=== PATIENT | male | born 1960 ===

== ENCOUNTER 2020-03-30 01:00 | Emergency (ER) | payer OTHER, SELFPAY ==
[2020-03-30 01:03] VITALS: BP 151/69; PULSE 118; TEMP 36; O2SAT 97; BMI 26.2
--- NOTE | 2020-03-30 03:05 | ED.EAR ---
HPI - Ear Problem General Chief complaint: Ear Problems Stated complaint: BUZZING IN EAR Time Seen by Provider: 03/30/20 03:05 Source: patient Mode of arrival: ambulatory Limitations: no limitations History of Present Illness HPI Narrative: patient comes to emergency room complaining of ear whooshing noise the L ear sound for the last 8 months , patient denies any pain. Patient states the noise is getting more intense and now he is unable to sleep due to the noise, only affecting the left ear. Patient states that his primary care physician has been trying to arrange and ENT referral Related Data Home Medications Medication Instructions Recorded Confirmed albuterol 90 mcg/actuation aerosol mcg INHALATION 03/24/20 03/24/20 inhaler cyanocobalamin (vitamin B-12) 1,000 mcg PO DAILY 03/24/20 03/24/20 1,000 mcg capsule fluticasone propionate 110 2 puff INHALATION BID 03/24/20 03/24/20 mcg/actuation HFA aerosol inhaler gabapentin 300 mg tablet,extended 300 mg PO BID tab 03/24/20 03/24/20 release 24 hr lisinopril 20 mg tablet 20 mg PO DAILY 03/24/20 03/24/20 omeprazole 20 mg capsule,delayed 20 mg PO DAILY 03/24/20 03/24/20 release quetiapine 100 mg tablet 100 mg PO BEDTIME 03/24/20 03/24/20 simvastatin 5 mg tablet 5 mg PO DAILY 03/24/20 03/24/20 thiamine HCl (vitamin B1) 50 mg 50 mg PO DAILY 03/24/20 03/24/20 tablet thiamine HCl (vitamin B1) 50 mg 50 mg PO DAILY 03/24/20 03/24/20 tablet Previous Rx's Medication Instructions Recorded tramadol 50 mg tablet 50 mg PO TID PRN 30 Days #90 tab 03/24/20 Allergies Allergy/AdvReac Type Severity Reaction Status Date / Time ibuprofen [IBUPROFEN] AdvReac Mild UPSET Verified 03/30/20 01:06 STOMACH naproxen [From NAPROSYN] AdvReac Unknown STOMACH Verified 03/30/20 01:06 UPSET Review of Systems Review of Systems: Constitutional: No Weight loss, No Fever, No Chills, No Night Sweats, No Fatigue, No Malaise ENT/Mouth: No Hearing loss, No Ear Pain, complaining of a constant ear wooshing noise, No Nasal Congestion, No Sinus Pain, No Hoarseness, No sore throat, No Rhinorrhea, No Swallowing Difficulty Eyes: No Eye Pain, No Swelling, No Redness, No Foreign Body, No Discharge, No Vision Changes Cardiovascular: No Chest Pain, No SOB, No Dyspnea on Exertion, No Orthopnea, No Edema, No Palpitations Respiratory: No Cough, No Sputum, No Wheezing, No Smoke Exposure, No Dyspnea Gastrointestinal: No Nausea, No Vomiting, No Diarrhea, No Constipation, No abdominal Pain, No Hematochezia, No Melena Genitourinary: no irregular bleeding, No Dysuria, No Urinary Frequency, No Hematuria, No Urinary Incontinence, No Urgency, No Flank Pain, No Urinary Flow Changes, No Hesitancy Musculoskeletal: No joint pain, No Myalgias, No Joint Swelling Skin: No Skin Lesions, No rash Neuro: No Weakness, No Numbness, No Paresthesias, No Loss of Consciousness, No Dizziness, No Headache Psych: No Anxiety/Panic, No Depression, No SI/HI/AH/VH, No Social Issues, Heme/Lymph: No Bruising, No Bleeding,No Lymphadenopathy Endocrine: No Polyuria, No Polydipsia, No Temperature Intolerance [facility] Past Medical History Medical History Alcohol abuse Anxiety and depression Asthma Degenerative disc disease, lumbar GERD (gastroesophageal reflux disease) Hypercholesterolemia Hypertension Tobacco abuse Type 2 diabetes mellitus with hyperglycemia Surgical History History of hand surgery Family History Family History (Updated 03/23/20 @ 16:53 by Leona Nixon RN) Father No problems noted. Mother Lung cancer Maternal Grandmother History of heart attack Maternal Uncle Lung cancer Social History Social History Advance Directives: No Physical Exam Vital Signs: Vital Signs: Vital Signs Temp Pulse BP Pulse Ox 03/30/20 01:03 96.8 F 118 H 151/69 H 97 Body Mass Index 26.2 Appearance: Alert. Oriented X3. No acute distress. Eyes: Pupils equal, round and reactive to light. ENT: Pharynx normal. Neck: Normal inspection. Neck supple. No lymph nodes noted. No crepitus, audible murmur over the left carotid CVS: Normal heart rate and rhythm. Pulses normal. Normal S1 and S2 Respiratory: No respiratory distress. Breath sounds normal. No Wheezing. No rales Abdomen: Soft and nontender. No rigidity. No distention. good BS x4 Skin: Skin warm and dry. Normal skin color. Normal skin turgor. Extremities: No lower extremity edema. No lower extremity edema. No Lacerations. No Rash Neuro: Oriented X 3. No motor deficit. No sensory deficit. Moving all extermities. No slurred speech. Appearance: Alert. Oriented X3. No acute distress. Course Reevaluation(s) Reevaluation #1: patient is stable MDM - Ear MDM Narrative Medical decision making narrative: I discussed the physical exam with the patient, his ears are within normal limits, however there is allowed murmur over the left carotid. I discussed with the patient that we should get angio of the neck. Patient states that he does not want to wait for the blood work and the results. Patient states he will talk to his primary care physician about this. As mentioned above, patient declined labs and imaging. Discharge Plan Discharge Clinical Impression: Ear clicks Qualifiers: Laterality: left Qualified Code(s): H93.12 - Tinnitus, left ear Patient Disposition: Home, Self-Care Additional Instructions: please follow-up with your primary care physician, you may need a carotid ultrasound to rule out narrowing of the arteries in your neck. also please follow-up with your ears nose and throat doctor As suggested by your primary care physician Prescriptions: No Action thiamine HCl (vitamin B1) 50 mg tablet 50 mg PO DAILY RF: 0 albuterol 90 mcg/actuation aerosol inhalation RF: 0 Flovent HFA 110 mcg/actuation HFA aerosol inhaler 2 puff inhalation BID RF: 0 gabapentin 300 mg tablet extended release 24 hr 300 mg PO BID RF: 0 quetiapine [Seroquel] 100 mg tablet 100 mg PO BEDTIME RF: 0 omeprazole 20 mg capsule,delayed release(DR/EC) 20 mg PO DAILY RF: 0 simvastatin 5 mg tablet 5 mg PO DAILY RF: 0 thiamine HCl (vitamin B1) 50 mg tablet 50 mg PO DAILY RF: 0 lisinopril 20 mg tablet 20 mg PO DAILY RF: 0 cyanocobalamin (vitamin B-12) 1,000 mcg capsule 1,000 mcg PO DAILY RF: 0 tramadol 50 mg tablet 50 mg PO TID PRN (Reason: pain) 30 Days Qty: 90 RF: 0 Interventions: ED Discharge Assessment Last Done: 03/30/20 03:09 Discharge Date/Time: 03/30/20 03:18
== END 2020-03-30 03:18 | disposition home or self-care (01) ==
PROVIDERS: Emergency Provider Emergency Medicine; PCP Internal Medicine
DX: H93.12 Tinnitus, left ear (principal)
CPT/HCPCS: 99282; 99283

== ENCOUNTER 2020-04-02 09:36 | Outpatient (REF) | payer OTHER, SELFPAY | END 2020-04-02 09:37 | disposition home or self-care (01) | LOC: HO.SH 09:36 | PROVIDERS: Visit Provider Internal Medicine | DX: H93.13 Tinnitus, bilateral (principal); H90.3 Sensorineural hearing loss, bilateral | CPT/HCPCS: 92557; 92567 ==

== ENCOUNTER 2020-10-15 09:33 | Outpatient (REF) | payer OTHER, SELFPAY ==
[2020-10-15 10:24] LABS: MANUAL DIFF FLAG NO
[2020-10-15 10:28] LABS: Basophils Absolute Auto 0.1 X10*3/uL (0.0-0.2); Basophils Percent Auto 0.5 % (0-2); Eosinophils Absolute Auto 0.2 X10*3/uL (0.0-0.4); Eosinophils Percent Auto 1.5 % (0-4); Hematocrit 46.9 % (42-52); Hemoglobin 15.9 g/dl (14.0-18.0); Imm Gran Abs Auto 0.02 X10*3/uL (0.00-0.03); Imm Gran Pct Auto 0.2 % (0.0-0.4); Lymphocytes Absolute Auto 3.5 X10*3/uL (1.2-4.9); Lymphocytes Percent Auto 35.7 % (20-40); Mean Corpuscular HGB Conc 33.9 g/dl (31.0-36.0); Mean Corpuscular Hemoglobin 30.7 pg (27.0-33.0); Mean Corpuscular Volume 90.5 fL (80-98); Mean Platelet Volume 12.3 fL (9.4-12.4); Monocytes Absolute Auto 0.5 X10*3/uL (0.1-1.2); Monocytes Percent Auto 5.4 % (2-11); Neutrophils Absolute Auto 5.6 X10*3/uL (2.0-8.3); Neutrophils Percent Auto 56.7 % (45-73); Platelet Count 218 X10*3/uL (160-400); Red Blood Count 5.18 X10*6/uL (4.60-5.80); Red Cell Distribution Width 13.2 % (11.0-16.0); White Blood Count 9.9 X10*3/uL (4.8-10.8)
[2020-10-15 10:55] LABS: Albumin Level 4.6 g/dL (3.5-5.0); Anion Gap 17 (12-20); Blood Urea Nitrogen 17 mg/dL (9-16); Carbon Dioxide 22 mmol/L (22-29); Chloride 104 mmol/L (96-108); Estimated Glomerular Filt Rate > 60; Magnesium 2.2 mg/dL (1.6-2.6); Phosphorus 3.9 mg/dL (2.7-4.5); Potassium 4.9 mmol/L (3.3-5.1); Sodium 138 mmol/L (135-145)
[2020-10-15 11:04] LABS: Vitamin D 25-OH Total 9.9 ng/mL (>30)
== END 2020-10-15 09:34 | disposition home or self-care (01) ==
LOC: HO.LAB 09:33
PROVIDERS: PCP Internal Medicine; Visit Provider Internal Medicine Hypertension Specialist
DX: I13.0 Hypertensive heart and chronic kidney disease with heart failure and stage 1 through stage 4 chronic kidney disease, or unspecified chronic kidney disease (principal); I50.9 Heart failure, unspecified; N18.9 Chronic kidney disease, unspecified
CPT/HCPCS: 36415; 80051; 82040; 82306; 82310; 82565; 83735; 84100; 84520; 85025

== ENCOUNTER 2021-01-27 10:26 | Outpatient (REF) | payer OTHER, SELFPAY ==
[2021-01-27 10:48] LABS: MANUAL DIFF FLAG NO
[2021-01-27 10:56] LABS: Basophils Percent Auto 0.4 % (0-2); Eosinophils Absolute Auto 0.2 X10*3/uL (0.0-0.4); Eosinophils Percent Auto 1.9 % (0-4); Hematocrit 45.1 % (42-52); Hemoglobin 15.3 g/dl (14.0-18.0); Imm Gran Abs Auto 0.02 X10*3/uL (0.00-0.03); Imm Gran Pct Auto 0.2 % (0.0-0.4); Lymphocytes Absolute Auto 4.4 X10*3/uL (1.2-4.9); Lymphocytes Percent Auto 42.1 % (20-40); Mean Corpuscular HGB Conc 33.9 g/dl (31.0-36.0); Mean Corpuscular Hemoglobin 30.8 pg (27.0-33.0); Mean Corpuscular Volume 90.9 fL (80-98); Mean Platelet Volume 12.5 fL (9.4-12.4); Monocytes Absolute Auto 0.6 X10*3/uL (0.1-1.2); Monocytes Percent Auto 5.6 % (2-11); Neutrophils Absolute Auto 5.2 X10*3/uL (2.0-8.3); Neutrophils Percent Auto 49.8 % (45-73); Platelet Count 200 X10*3/uL (160-400); Red Blood Count 4.96 X10*6/uL (4.60-5.80); Red Cell Distribution Width 13.7 % (11.0-16.0); White Blood Count 10.4 X10*3/uL (4.8-10.8)
[2021-01-27 11:04] LABS: Estimated Average Glucose 169 mg/dL; Hemoglobin A1c % 7.5 %
[2021-01-27 11:20] LABS: Alanine Aminotransferase 27 U/L (0-40); Albumin Level 4.4 g/dL (3.5-5.0); Alkaline Phosphatase 75 U/L (39-117); Anion Gap 15 (12-20); Aspartate Amino Transferase 15 U/L (5-37); Bilirubin Total 0.5 mg/dL (0.0-1.0); Blood Urea Nitrogen 11 mg/dL (9-16); Calcium 9.9 mg/dL (8.4-10.2); Carbon Dioxide 23 mmol/L (22-29); Chloride 106 mmol/L (96-108); Cholesterol 179 mg/dL; Estimated Glomerular Filt Rate > 60; Glucose Random 130 mg/dL (60-115); HDL Cholesterol 35 mg/dL; LDL Cholesterol Calculated 110 mg/dl; Potassium 4.6 mmol/L (3.3-5.1); Sodium 139 mmol/L (135-145); Total Protein 7.4 g/dL (6.5-8.0); Triglycerides 170 mg/dL
[2021-01-27 11:42] LABS: Free T4 (Free Thyroxine) 1.13 ng/dL (0.71-1.85); Prostate Specific Antigen Scr 0.17 ng/mL (<0.05-4.0); Thyroid Stimulating Hormone 1.53 uIU/mL (0.32-4.0)
[2021-01-27 13:35] LABS: Creatinine Urine 213.82 mg/dL; Microalbum/Creatinine Ratio Ur 3.7 ug/mg cr
[2021-01-27 16:21] LABS: Vitamin B12 692 pg/mL (200-900)
== END 2021-01-27 10:27 | disposition home or self-care (01) ==
LOC: HO.LAB 10:26
PROVIDERS: PCP Internal Medicine; Visit Provider Internal Medicine
DX: I10 Essential (primary) hypertension (principal); E78.00 Pure hypercholesterolemia, unspecified; E11.65 Type 2 diabetes mellitus with hyperglycemia; Z12.5 Encounter for screening for malignant neoplasm of prostate
CPT/HCPCS: 36415; 80053; 80061; 82043; 82607; 82746; 83036; 84153; 84439; 84443; 85025

== ENCOUNTER 2021-03-26 16:08 | Emergency (ER) | payer OTHER, SELFPAY ==
--- NOTE | ~2021-03-26 | XR_ITS ---
EXAMINATION: XR CHEST CLINICAL INFORMATION: Cough COMPARISON: 07/06/2014 TECHNIQUE: Frontal view of the chest was obtained. FINDINGS: There are scattered ill-defined parenchymal opacities, most prominent in the left lower lobe. No pleural effusion. Stable cardiomediastinal silhouette. XR/XR chest 1V IMPRESSION: Scattered ill-defined opacities particularly in the left lower lobe may represent a multifocal atypical pneumonia.
--- NOTE | 2021-03-26 17:20 | ED_ITS ---
HPI - URI/Sore Throat General Chief Complaint: Upper Respiratory Symptoms Stated Complaint: Covid + Weakness Time Seen by Provider: 03/26/21 17:20 Source: patient, family and chemist steroids Mode of arrival: ambulatory Limitations: no limitations History of Present Illness HPI Narrative: unvaccinated dx with COVID on 03/20 has body aches pain doesn't feel well has no appetite upset and wants to know when he's going to feel better MD elicited complaint: other (COVID 19 dx) Onset (ago): day(s) (5) Consistency: constant Severity: moderate Description of mucous: clear Able to tolerate fluids by mouth: Yes Exacerbating factors: other (moving) Relieving factors: nothing Context: sick contacts Associated symptoms: chills, myalgias, headache and cough Treatments prior to arrival: none Related Data Home Medications Medication Instructions Recorded Confirmed gabapentin 300 mg tablet,extended 300 mg PO BID tab 03/24/20 10/22/20 release 24 hr omeprazole 20 mg capsule,delayed 20 mg PO DAILY 03/24/20 10/22/20 release quetiapine 100 mg tablet (Seroquel) 100 mg PO BEDTIME 03/24/20 10/22/20 thiamine HCl (vitamin B1) 50 mg 100 mg PO DAILY tab 05/31/20 10/22/20 tablet Previous Rx's Medication Instructions Recorded tizanidine 4 mg tablet 4 mg PO BID PRN #60 tab 06/22/20 fluticasone propionate 110 2 puff PO BID #12 g 07/16/20 mcg/actuation HFA aerosol inhaler (Flovent HFA) lisinopril 20 mg tablet 20 mg PO DAILY #90 tab 01/19/21 metformin 500 mg tablet 500 mg PO BID #60 tab 01/28/21 simvastatin 10 mg tablet 10 mg PO BEDTIME 30 Days #30 tab 01/28/21 cyanocobalamin (vitamin B-12) 100 100 mcg PO DAILY 90 Days #90 tab 02/11/21 mcg tablet tramadol 50 mg tablet 50 mg PO QID PRN #120 tab 03/17/21 albuterol sulfate 90 mcg/actuation 2 puff INHALATION Q6H PRN #8.5 g 03/25/21 aerosol inhaler (ProAir HFA) azithromycin 250 mg tablet 250 mg PO DAILY 4 Days #4 tab 03/26/21 dexamethasone 6 mg tablet 6 mg PO DAILY 7 Days #7 tab 03/26/21 ondansetron 4 mg disintegrating 4 mg PO Q8H PRN #20 tab 03/26/21 tablet Allergies Allergy/AdvReac Type Severity Reaction Status Date / Time ibuprofen [IBUPROFEN] AdvReac Mild UPSET Verified 01/28/21 09:42 STOMACH naproxen [From NAPROSYN] AdvReac Unknown STOMACH Verified 01/28/21 09:42 UPSET Review of Systems Review of Systems: Constitutional : No Weight loss, No Fever, pos Chills, pos Fatigue, pos Malaise ENT/Mouth : No sore throat, pos Rhinorrhea Eyes: No Eye Pain, No Swelling, No Redness Cardiovascular : No Chest Pain, No SOB, No Dyspnea on Exertion, No Orthopnea, No Edema, No Palpitations Respiratory :pos Cough, No Sputum, No Wheezing Gastrointestinal : No Nausea, No Vomiting, No Diarrhea, No Constipation, No abdominal Pain, No Hematochezia, No Melena Genitourinary : No Dysuria, No Urinary Frequency, No Hematuria, Musculoskeletal : pos joint pain, pos Myalgias, No Joint Swelling Skin : No Skin Lesions, No rash Neuro : pos Weakness, No Numbness, No Dizziness, No Headache All other systems reviewed and are negative [facility] Past Medical History Attestation statement: The following information was validated with the patient. Medical History Alcohol abuse Anxiety and depression Asthma Degenerative disc disease, lumbar GERD (gastroesophageal reflux disease) Hypercholesterolemia Hypertension Osteoarthritis Tobacco abuse Type 2 diabetes mellitus with hyperglycemia Surgical History History of hand surgery Family History Family History (Updated 03/23/20 @ 16:53 by Leona Nixon RN) Father No problems noted. Mother Lung cancer Maternal Grandmother History of heart attack Maternal Uncle Lung cancer Social History Social History Housing: Apartment Alcohol intake: current Alcohol intake frequency: holidays/special occasions only Patient Tobacco Use Status: Current everyday Tobacco user Tobacco use type: Cigarette Cigarettes Per Day: 13 e-Cigarette/Vaping Use: Never Used Second Hand Smoke Exposure: Yes Advance Directives: No Advance Directives Information Provided: No service: No Current occupational status: disabled Physical Exam Vital Signs: Vital Signs: Last Vital Signs Temp 100.7 F H 03/26/21 17:54 Pulse 103 H 03/26/21 17:54 Resp 20 03/26/21 17:54 BP 119/79 03/26/21 17:54 Pulse Ox 97 03/26/21 17:54 Body Mass Index 23.9 Appearance: Alert. Oriented X3. No acute distress. Upset at times Eyes: Pupils equal, round and reactive to light. ENT: Pharynx normal. Neck: Normal inspection. Neck supple. CVS: Normal heart rate and rhythm. Pulses normal. Respiratory: No respiratory distress. Breath sounds slightly diminished Abdomen: Soft and nontender. Skin: Skin warm and dry. Normal skin color. Normal skin turgor. Extremities: No lower extremity edema. No calf ttp Neuro: Oriented X 3. No motor deficit. No sensory deficit. MDM - URI/Sore Throat MDM Narrative Medical decision making narrative: 60 yo male with asthma, HTN, current smoker comes in with c/o not feeling well post being dx with COVID on 03/20 he is not vaccinated he is very upset he doesn't feel well and wants to know how long this is going to last - he is not hypoxic, at this time, will need labs, PO supportive medications and CXR, given expectant course Lab Data Result diagrams: 03/26/21 18:08 03/26/21 18:08 Labs: Lab Results 03/26/21 03/26/21 Range/Units 18:08 18:08 WBC 4.5 L (4.8-10.8) X10*3/uL RBC 5.18 (4.60-5.80) X10*6/uL Hgb 15.8 (14.0-18.0) g/dl Hct 44.7 (42-52) % MCV 86.3 (80-98) fL MCH 30.5 (27.0-33.0) pg MCHC 35.3 (31.0-36.0) g/dl RDW 13.5 (11.0-16.0) % Plt Count 136 L D (160-400) X10*3/uL MPV 12.3 (9.4-12.4) fL Immature Gran % (Auto) 0.2 (0.0-0.4) % Neut % (Auto) 68.4 (45-73) % Lymph % (Auto) 23.8 (20-40) % [place] % (Auto) 7.4 (2-11) % Eos % (Auto) 0.0 (0-4) % Baso % (Auto) 0.2 (0-2) % Lymph # (Auto) 1.1 L (1.2-4.9) X10*3/uL [place] # (Auto) 0.3 (0.1-1.2) X10*3/uL Eos # (Auto) 0.0 (0.0-0.4) X10*3/uL Baso # (Auto) 0.0 (0.0-0.2) X10*3/uL Abs Immat Gran (auto) 0.01 (0.00-0.03) X10*3/uL Absolute Neuts (auto) 3.1 (2.0-8.3) X10*3/uL Absolute Nucleated RBC 0.000 (0.0-0.012) X10*3/uL Nucleated RBC % (auto) 0.0 (0.0-0.2) /100WBC Sodium 135 (135-145) mmol/L Potassium 4.7 (3.3-5.1) mmol/L Chloride 102 (96-108) mmol/L Carbon Dioxide 20 L (22-29) mmol/L Anion Gap 18 (12-20) BUN 16 (9-16) mg/dL Creatinine 1.25 (0.5-1.4) mg/dL Estim Creat Clear Calc 51.2 Estimated GFR 59 Random Glucose 157 H (60-115) mg/dL Calcium 8.6 D (8.4-10.2) mg/dL Discharge Plan Discharge Clinical Impression: COVID-19, Pneumonia due to 2019 novel coronavirus Patient Disposition: Home, Self-Care Instructions: Viral Pneumonia (ED), COVID-19 (Coronavirus Disease 2019) (ED) Additional Instructions: return to ED for any worsening symptoms or concerns Prescriptions: New ondansetron 4 mg tablet,disintegrating 4 mg PO Q8H PRN (Reason: nausea and vomiting) Qty: 20 RF: 0 dexamethasone 6 mg tablet 6 mg PO DAILY 7 Days Qty: 7 RF: 0 azithromycin 250 mg tablet 250 mg PO DAILY 4 Days Qty: 4 RF: 0 No Action thiamine HCl (vitamin B1) 50 mg tablet 100 mg PO DAILY RF: 0 tizanidine 4 mg tablet 4 mg PO BID PRN (Reason: for muscle spasm) Qty: 60 RF: 2 Flovent HFA 110 mcg/actuation HFA aerosol inhaler 2 puff PO BID Qty: 12 RF: 11 lisinopril 20 mg tablet 20 mg PO DAILY Qty: 90 RF: 1 cyanocobalamin (vitamin B-12) 100 mcg tablet 100 mcg PO DAILY 90 Days Qty: 90 RF: 1 tramadol 50 mg tablet 50 mg PO QID PRN (Reason: pain) Qty: 120 RF: 1 albuterol sulfate [ProAir HFA] 90 mcg/actuation HFA aerosol inhaler 2 puff inhalation Q6H PRN (Reason: shortness of breath or wheezing) Qty: 8.5 RF: 0 gabapentin 300 mg tablet extended release 24 hr 300 mg PO BID RF: 0 quetiapine [Seroquel] 100 mg tablet 100 mg PO BEDTIME RF: 0 omeprazole 20 mg capsule,delayed release(DR/EC) 20 mg PO DAILY RF: 0 metformin 500 mg tablet 500 mg PO BID Qty: 60 RF: 3 simvastatin 10 mg tablet 10 mg PO BEDTIME 30 Days Qty: 30 RF: 3 Stand Alone Forms: Work/School Release Print Language: Citizen Of [place]
[2021-03-26 17:54] VITALS: BP 119/79; PULSE 103; RESP 20; TEMP 38.2; O2SAT 97; BMI 23.9
[2021-03-26] MEDS: Ondansetron ODT 4 MG TAB.RAPDIS TRANSLINGU (18:10)
[2021-03-26] MEDS: HYDROcodone/Homat 5/1.5/5 ML 5 ML SYRUP PO (18:10)
[2021-03-26] MEDS: Acetaminophen 325 MG TABLET 650 MG PO (18:11)
[2021-03-26 18:12] LABS: MANUAL DIFF FLAG NO
[2021-03-26 18:20] LABS: Basophils Percent Auto 0.2 % (0-2); Hematocrit 44.7 % (42-52); Hemoglobin 15.8 g/dl (14.0-18.0); Imm Gran Abs Auto 0.01 X10*3/uL (0.00-0.03); Imm Gran Pct Auto 0.2 % (0.0-0.4); Lymphocytes Absolute Auto 1.1 X10*3/uL (1.2-4.9); Lymphocytes Percent Auto 23.8 % (20-40); Mean Corpuscular HGB Conc 35.3 g/dl (31.0-36.0); Mean Corpuscular Hemoglobin 30.5 pg (27.0-33.0); Mean Corpuscular Volume 86.3 fL (80-98); Mean Platelet Volume 12.3 fL (9.4-12.4); Monocytes Absolute Auto 0.3 X10*3/uL (0.1-1.2); Monocytes Percent Auto 7.4 % (2-11); Neutrophils Absolute Auto 3.1 X10*3/uL (2.0-8.3); Neutrophils Percent Auto 68.4 % (45-73); Platelet Count 136 X10*3/uL (160-400); Red Blood Count 5.18 X10*6/uL (4.60-5.80); Red Cell Distribution Width 13.5 % (11.0-16.0); White Blood Count 4.5 X10*3/uL (4.8-10.8)
[2021-03-26 18:26] LABS: Anion Gap 18 (12-20); Blood Urea Nitrogen 16 mg/dL (9-16); Calcium 8.6 mg/dL (8.4-10.2); Carbon Dioxide 20 mmol/L (22-29); Chloride 102 mmol/L (96-108); Creatinine Clr Calc Pharmacy 51.2; Estimated Glomerular Filt Rate 59; Glucose Random 157 mg/dL (60-115); Potassium 4.7 mmol/L (3.3-5.1); Sodium 135 mmol/L (135-145)
[2021-03-26] MEDS: Azithromycin 500 MG TABLET PO (19:46)
== END 2021-03-26 19:52 | disposition home or self-care (01) ==
PROVIDERS: Emergency Provider Emergency Medicine; PCP Internal Medicine
DX: U07.1 COVID-19 (principal); J12.82 Pneumonia due to coronavirus disease 2019; F17.210 Nicotine dependence, cigarettes, uncomplicated; Z71.6 Tobacco abuse counseling; Z79.899 Other long term (current) drug therapy
CPT/HCPCS: 36415; 71045; 80048; 85025; 99283

== ENCOUNTER 2021-04-03 21:12 | Emergency (ER) | payer OTHER, SELFPAY ==
[2021-04-03 21:18] VITALS: BP 143/87; PULSE 125; RESP 16; TEMP 36.9; O2SAT 98; BMI 26.9
[2021-04-03 21:28] VITALS: BP 143/87; PULSE 116; RESP 18; TEMP 36.9; O2SAT 96
--- NOTE | 2021-04-03 21:29 | ECG_ITS ---
Test Reason : chest pain Blood Pressure : / mmHG Vent. Rate : 117 BPM Atrial Rate : 117 BPM P-R Int : 122 ms QRS Dur : 082 ms QT Int : 346 ms P-R-T Axes : 049 064 067 degrees QTc Int : 482 ms Sinus tachycardia Nonspecific ST abnormality Low voltage QRS Abnormal ECG Heart rate has increased Referred By: John Celis Electronically Signed By:HERIBERTO FRENCH MD
--- NOTE | 2021-04-03 21:37 | ED.CHESTPAIN ---
HPI - Chest Pain General Chief Complaint: Chest Pain Stated Complaint: Chest Pain Time Seen by Provider: 04/03/21 21:25 Source: patient Mode of arrival: EMS Limitations: no limitations History of Present Illness HPI narrative: Patient 60 years old with history of anxiety, depression, alcohol abuse got COVID-19 on 03/20 since then complaining of pain in the chest increases on deep inspiration got worse for last 4 days, patient does have a cough denies any significant shortness of breath was seen here on 03/26 comes here again for pain saturating 98% room air slightly tachycardic with 125 beats per minute blood pressure 143/87 Related Data Home Medications Medication Instructions Recorded Confirmed gabapentin 300 mg tablet,extended 300 mg PO BID tab 03/24/20 10/22/20 release 24 hr omeprazole 20 mg capsule,delayed 20 mg PO DAILY 03/24/20 10/22/20 release quetiapine 100 mg tablet (Seroquel) 100 mg PO BEDTIME 03/24/20 10/22/20 thiamine HCl (vitamin B1) 50 mg 100 mg PO DAILY tab 05/31/20 10/22/20 tablet Previous Rx's Medication Instructions Recorded tizanidine 4 mg tablet 4 mg PO BID PRN #60 tab 06/22/20 fluticasone propionate 110 2 puff PO BID #12 g 07/16/20 mcg/actuation HFA aerosol inhaler (Flovent HFA) lisinopril 20 mg tablet 20 mg PO DAILY #90 tab 01/19/21 metformin 500 mg tablet 500 mg PO BID #60 tab 01/28/21 simvastatin 10 mg tablet 10 mg PO BEDTIME 30 Days #30 tab 01/28/21 cyanocobalamin (vitamin B-12) 100 100 mcg PO DAILY 90 Days #90 tab 02/11/21 mcg tablet tramadol 50 mg tablet 50 mg PO QID PRN #120 tab 03/17/21 albuterol sulfate 90 mcg/actuation 2 puff INHALATION Q6H PRN #8.5 g 03/25/21 aerosol inhaler (ProAir HFA) azithromycin 250 mg tablet 250 mg PO DAILY 4 Days #4 tab 03/26/21 dexamethasone 6 mg tablet 6 mg PO DAILY 7 Days #7 tab 03/26/21 ondansetron 4 mg disintegrating 4 mg PO Q8H PRN #20 tab 03/26/21 tablet sucralfate 1 gram tablet 1 g PO TID #90 tab 04/03/21 Allergies Allergy/AdvReac Type Severity Reaction Status Date / Time ibuprofen [IBUPROFEN] AdvReac Mild UPSET Verified 01/28/21 09:42 STOMACH naproxen [From NAPROSYN] AdvReac Unknown STOMACH Verified 01/28/21 09:42 UPSET Review of Systems Review of Systems: Yes all other systems are reviewed and are negative [facility] Past Medical History Medical History Alcohol abuse Anxiety and depression Asthma Degenerative disc disease, lumbar GERD (gastroesophageal reflux disease) Hypercholesterolemia Hypertension Osteoarthritis Tobacco abuse Type 2 diabetes mellitus with hyperglycemia Surgical History History of hand surgery Family History Family History Father No problems noted. Mother Lung cancer Maternal Grandmother History of heart attack Maternal Uncle Lung cancer Social History Social History Housing: Apartment Alcohol intake: current Alcohol intake frequency: holidays/special occasions only Patient Tobacco Use Status: Current everyday Tobacco user Tobacco use type: Cigarette Cigarettes Per Day: 13 e-Cigarette/Vaping Use: Never Used Second Hand Smoke Exposure: Yes Advance Directives: No Advance Directives Information Provided: Yes service: No Current occupational status: disabled Physical Exam Vital Signs: Vital Signs: Last Vital Signs Temp 98.3 F 04/03/21 23:27 Pulse 98 04/03/21 23:27 Resp 15 04/03/21 23:27 BP 169/99 H 04/03/21 23:27 Pulse Ox 98 04/03/21 23:27 Body Mass Index 26.9 Appearance: Alert. Oriented X3. No acute distress. Anxious Eyes: No pallor or icterus ENT: Pharynx normal. Oral Mucosa moist Neck: Normal inspection. Neck supple. CVS: Sinus tachycardia regular rhythm no murmur /gallop Pulses normal. Respiratory: No respiratory distress. Equal air entry bilateral, no wheezing/ronchi, diffuse scattered rales Abdomen: Soft and nontender. Bowel sounds are present, no mass palpable, Skin: Skin warm and dry. Normal skin color. Normal skin turgor. Extremities: No lower extremity edema. No calf tenderness Neuro: Oriented X 3. MDM - Chest Pain MDM Narrative Medical decision making narrative: Patient COVID-19 infection repeat COVID test negative chest x-ray improved symptoms likely from gastritis discharge patient home on sucralfate patient already taking Prilosec at home Lab Data Attestation: I reviewed the patient's lab results. Result diagrams: 04/03/21 21:43 04/03/21 21:43 Labs: Lab Results 04/03/21 04/03/21 04/03/21 Range/Units 21:43 21:43 21:43 WBC 10.0 (4.8-10.8) X10*3/uL RBC 4.74 (4.60-5.80) X10*6/uL Hgb 14.4 (14.0-18.0) g/dl Hct 41.2 L (42-52) % MCV 86.9 (80-98) fL MCH 30.4 (27.0-33.0) pg MCHC 35.0 (31.0-36.0) g/dl RDW 13.2 (11.0-16.0) % Plt Count 353 D (160-400) X10*3/uL MPV 10.8 (9.4-12.4) fL Immature Gran % (Auto) 1.5 H (0.0-0.4) % Neut % (Auto) 74.8 H (45-73) % Lymph % (Auto) 18.0 L (20-40) % [place] % (Auto) 5.6 (2-11) % Eos % (Auto) 0.0 (0-4) % Baso % (Auto) 0.1 (0-2) % Lymph # (Auto) 1.8 (1.2-4.9) X10*3/uL [place] # (Auto) 0.6 (0.1-1.2) X10*3/uL Eos # (Auto) 0.0 (0.0-0.4) X10*3/uL Baso # (Auto) 0.0 (0.0-0.2) X10*3/uL Abs Immat Gran (auto) 0.15 H (0.00-0.03) X10*3/uL Absolute Neuts (auto) 7.5 (2.0-8.3) X10*3/uL Absolute Nucleated RBC 0.000 (0.0-0.012) X10*3/uL Nucleated RBC % (auto) 0.0 (0.0-0.2) /100WBC Smear Tech's Comments VERIFIED D-Dimer < 200 NG/ML Sodium 136 (135-145) mmol/L Potassium 4.5 (3.3-5.1) mmol/L Chloride 102 (96-108) mmol/L Carbon Dioxide 23 (22-29) mmol/L Anion Gap 16 (12-20) BUN 17 H (9-16) mg/dL Creatinine 1.08 (0.5-1.4) mg/dL Estim Creat Clear Calc 66.6 Estimated GFR > 60 Random Glucose 277 H D (60-115) mg/dL Calcium 9.1 (8.4-10.2) mg/dL Troponin I High Sens (<3.5-35.0) ng/L Coronavirus (PCR) (Negative) Influenza Type A (PCR) (Negative) Influenza Type B (PCR) (Negative) RSV RNA Qual (PCR) (Negative) 04/03/21 04/03/21 Range/Units 21:43 21:44 WBC (4.8-10.8) X10*3/uL RBC (4.60-5.80) X10*6/uL Hgb (14.0-18.0) g/dl Hct (42-52) % MCV (80-98) fL MCH (27.0-33.0) pg MCHC (31.0-36.0) g/dl RDW (11.0-16.0) % Plt Count (160-400) X10*3/uL MPV (9.4-12.4) fL Immature Gran % (Auto) (0.0-0.4) % Neut % (Auto) (45-73) % Lymph % (Auto) (20-40) % [place] % (Auto) (2-11) % Eos % (Auto) (0-4) % Baso % (Auto) (0-2) % Lymph # (Auto) (1.2-4.9) X10*3/uL [place] # (Auto) (0.1-1.2) X10*3/uL Eos # (Auto) (0.0-0.4) X10*3/uL Baso # (Auto) (0.0-0.2) X10*3/uL Abs Immat Gran (auto) (0.00-0.03) X10*3/uL Absolute Neuts (auto) (2.0-8.3) X10*3/uL Absolute Nucleated RBC (0.0-0.012) X10*3/uL Nucleated RBC % (auto) (0.0-0.2) /100WBC Smear Tech's Comments D-Dimer NG/ML Sodium (135-145) mmol/L Potassium (3.3-5.1) mmol/L Chloride (96-108) mmol/L Carbon Dioxide (22-29) mmol/L Anion Gap (12-20) BUN (9-16) mg/dL Creatinine (0.5-1.4) mg/dL Estim Creat Clear Calc Estimated GFR Random Glucose (60-115) mg/dL Calcium (8.4-10.2) mg/dL Troponin I High Sens 8.9 (<3.5-35.0) ng/L Coronavirus (PCR) NEGATIVE (Negative) Influenza Type A (PCR) NEGATIVE (Negative) Influenza Type B (PCR) NEGATIVE (Negative) RSV RNA Qual (PCR) NEGATIVE (Negative) Discharge Plan Discharge Clinical Impression: COVID-19 GERD (gastroesophageal reflux disease) Qualifiers: Esophagitis presence: with esophagitis Esophagitis bleeding: without hemorrhage Qualified Code(s): K21.00 - Gastro-esophageal reflux disease with esophagitis, without bleeding Patient Disposition: Home, Self-Care Instructions: Gastritis (ED), COVID-19 (Coronavirus Disease 2019) (ED) Additional Instructions: Continue Prilosec daily Sucralfate 3 times a day Avoid greasy or spicy food your COVID-19 test is negative Prescriptions: New sucralfate 1 gram tablet 1 g PO TID Qty: 90 RF: 0 No Action thiamine HCl (vitamin B1) 50 mg tablet 100 mg PO DAILY RF: 0 tizanidine 4 mg tablet 4 mg PO BID PRN (Reason: for muscle spasm) Qty: 60 RF: 2 Flovent HFA 110 mcg/actuation HFA aerosol inhaler 2 puff PO BID Qty: 12 RF: 11 lisinopril 20 mg tablet 20 mg PO DAILY Qty: 90 RF: 1 cyanocobalamin (vitamin B-12) 100 mcg tablet 100 mcg PO DAILY 90 Days Qty: 90 RF: 1 tramadol 50 mg tablet 50 mg PO QID PRN (Reason: pain) Qty: 120 RF: 1 albuterol sulfate [ProAir HFA] 90 mcg/actuation HFA aerosol inhaler 2 puff inhalation Q6H PRN (Reason: shortness of breath or wheezing) Qty: 8.5 RF: 0 ondansetron 4 mg tablet,disintegrating 4 mg PO Q8H PRN (Reason: nausea and vomiting) Qty: 20 RF: 0 dexamethasone 6 mg tablet 6 mg PO DAILY 7 Days Qty: 7 RF: 0 azithromycin 250 mg tablet 250 mg PO DAILY 4 Days Qty: 4 RF: 0 gabapentin 300 mg tablet extended release 24 hr 300 mg PO BID RF: 0 quetiapine [Seroquel] 100 mg tablet 100 mg PO BEDTIME RF: 0 omeprazole 20 mg capsule,delayed release(DR/EC) 20 mg PO DAILY RF: 0 metformin 500 mg tablet 500 mg PO BID Qty: 60 RF: 3 simvastatin 10 mg tablet 10 mg PO BEDTIME 30 Days Qty: 30 RF: 3
[2021-04-03] MEDS: 0.9 % Sodium Chloride 1,000 ML 999 ML IVCONT (21:48)
[2021-04-03 21:50] LABS: Basophils Percent Auto 0.1 % (0-2); Hematocrit 41.2 % (42-52); Hemoglobin 14.4 g/dl (14.0-18.0); Imm Gran Abs Auto 0.15 X10*3/uL (0.00-0.03); Imm Gran Pct Auto 1.5 % (0.0-0.4); Lymphocytes Absolute Auto 1.8 X10*3/uL (1.2-4.9); MANUAL DIFF FLAG SCAN; Mean Corpuscular Hemoglobin 30.4 pg (27.0-33.0); Mean Corpuscular Volume 86.9 fL (80-98); Mean Platelet Volume 10.8 fL (9.4-12.4); Monocytes Absolute Auto 0.6 X10*3/uL (0.1-1.2); Monocytes Percent Auto 5.6 % (2-11); Neutrophils Absolute Auto 7.5 X10*3/uL (2.0-8.3); Neutrophils Percent Auto 74.8 % (45-73); Platelet Count 353 X10*3/uL (160-400); Red Blood Count 4.74 X10*6/uL (4.60-5.80); Red Cell Distribution Width 13.2 % (11.0-16.0); SCAN SMEAR FLAG 1
[2021-04-03 22:00] LABS: D Dimer < 200 NG/ML
[2021-04-03 22:05] LABS: Anion Gap 16 (12-20); Blood Urea Nitrogen 17 mg/dL (9-16); Calcium 9.1 mg/dL (8.4-10.2); Carbon Dioxide 23 mmol/L (22-29); Chloride 102 mmol/L (96-108); Creatinine Clr Calc Pharmacy 66.6; Estimated Glomerular Filt Rate > 60; Glucose Random 277 mg/dL (60-115); Potassium 4.5 mmol/L (3.3-5.1); Sodium 136 mmol/L (135-145)
[2021-04-03 22:10] LABS: Troponin-I High Sensitivity 8.9 ng/L (<3.5-35.0)
[2021-04-03 22:17] LABS: SLIDE REVIEW VERIFIED
[2021-04-03] MEDS: Acetaminophen 325 MG TABLET 650 MG PO (22:17)
[2021-04-03] MEDS: Magnesium Hydrox/Alum Hydrox 30 ML ORAL.SUSP PO (22:17)
[2021-04-03] MEDS: Famotidine/PF 20 MG/2 ML VIAL IVPUSH (22:18)
[2021-04-03 22:28] LABS: Influenza A PCR NEGATIVE (Negative); Influenza B PCR NEGATIVE (Negative); Resp Syncy Virus RNA Qual PCR NEGATIVE (Negative); SARS COV2 PCR INHOUSE NEGATIVE (Negative)
[2021-04-03 23:06] VITALS: BP 159/95; PULSE 99; RESP 0; TEMP 36.6; O2SAT 99
[2021-04-03 23:27] VITALS: BP 169/99; PULSE 98; RESP 15; TEMP 36.8; O2SAT 98
[2021-04-03 23:43] VITALS: RESP 16
== END 2021-04-03 23:42 | disposition home or self-care (01) ==
PROVIDERS: Emergency Provider Internal Medicine
DX: U07.1 COVID-19 (principal); K21.00 Gastro-esophageal reflux disease with esophagitis, without bleeding; I10 Essential (primary) hypertension; E11.9 Type 2 diabetes mellitus without complications; J45.909 Unspecified asthma, uncomplicated
CPT/HCPCS: 0241U; 36415; 80048; 84484; 85025; 85379; 93005; 96361; 96374; 99284

== ENCOUNTER 2021-04-21 00:54 | Emergency (ER) | payer OTHER, SELFPAY ==
[2021-04-21 00:59] VITALS: BP 137/81; PULSE 108; RESP 18; TEMP 37; O2SAT 99; BMI 24.9
[2021-04-21 01:16] LABS: MANUAL DIFF FLAG NO
[2021-04-21 01:17] LABS: Basophils Percent Auto 0.2 % (0-2); Eosinophils Absolute Auto 0.1 X10*3/uL (0.0-0.4); Eosinophils Percent Auto 0.4 % (0-4); Hematocrit 41.3 % (42.0-52.0); Hemoglobin 14.1 g/dl (14.0-18.0); Imm Gran Abs Auto 0.09 X10*3/uL (0.00-0.03); Imm Gran Pct Auto 0.8 % (0.0-0.4); Lymphocytes Percent Auto 26.6 % (20-40); Mean Corpuscular HGB Conc 34.1 g/dl (31.0-36.0); Mean Corpuscular Hemoglobin 30.4 pg (27.0-33.0); Mean Platelet Volume 10.7 fL (9.4-12.4); Monocytes Absolute Auto 0.8 X10*3/uL (0.1-1.2); Neutrophils Absolute Auto 7.25 x10*3/uL (2.0-8.3); Platelet Count 317 X10*3/uL (160-400); Red Blood Count 4.64 X10*6/uL (4.60-5.80); Red Cell Distribution Width 14.5 % (11.0-16.0); White Blood Count 11.2 X10*3/uL (4.8-10.8)
[2021-04-21 01:40] LABS: Alanine Aminotransferase 21 U/L (0-40); Albumin Level 3.9 g/dL (3.5-5.0); Alkaline Phosphatase 89 U/L (39-117); Anion Gap 16 (12-20); Aspartate Amino Transferase 10 U/L (5-37); Bilirubin Total < 0.2 mg/dL (0.0-1.0); Blood Urea Nitrogen 27 mg/dL (9-16); Calcium 9.5 mg/dL (8.4-10.2); Carbon Dioxide 20 mmol/L (22-29); Chloride 103 mmol/L (96-108); Creatinine Clr Calc Pharmacy 53.2; Estimated Glomerular Filt Rate 59; Glucose Random 230 mg/dL (60-115); Potassium 4.4 mmol/L (3.3-5.1); Sodium 135 mmol/L (135-145); Total Protein 6.8 g/dL (6.5-8.0)
--- NOTE | 2021-04-21 02:45 | ED.NAVMDI ---
HPI - Nausea/Vomiting/Diarrhea General Chief complaint: Nausea/Vomiting/Diarrhea Stated complaint: Hard time keeping food, meds ineffective Time Seen by Provider: 04/21/21 02:36 Source: patient Mode of arrival: ambulatory Limitations: no limitations History of Present Illness HPI Narrative: Patient comes emergency room complaining of trouble swallowing both fluids and solids for 2 months. Patient states that he can not feel the transit of the boluses traveling and getting stuck in the lower part of his esophagus. Patient states that sometimes he throws up but sometimes the bolus passes into the stomach. Patient denies GERD symptoms but has been diagnosed with GERD, takes pantoprazole. no vomiting, no diarrhea. No abdominal pain. Related Data Home Medications Medication Instructions Recorded Confirmed gabapentin 300 mg tablet,extended 300 mg PO BID tab 03/24/20 04/13/21 release 24 hr quetiapine 100 mg tablet (Seroquel) 100 mg PO BEDTIME 03/24/20 04/13/21 thiamine HCl (vitamin B1) 50 mg 100 mg PO DAILY tab 05/31/20 04/13/21 tablet Previous Rx's Medication Instructions Recorded tizanidine 4 mg tablet 4 mg PO BID PRN #60 tab 06/22/20 fluticasone propionate 110 2 puff PO BID #12 g 07/16/20 mcg/actuation HFA aerosol inhaler (Flovent HFA) metformin 500 mg tablet 500 mg PO BID #60 tab 01/28/21 simvastatin 10 mg tablet 10 mg PO BEDTIME 30 Days #30 tab 01/28/21 cyanocobalamin (vitamin B-12) 100 100 mcg PO DAILY 90 Days #90 tab 02/11/21 mcg tablet albuterol sulfate 90 mcg/actuation 2 puff INHALATION Q6H PRN #8.5 g 03/25/21 aerosol inhaler (ProAir HFA) azithromycin 250 mg tablet 250 mg PO DAILY 4 Days #4 tab 03/26/21 dexamethasone 6 mg tablet 6 mg PO DAILY 7 Days #7 tab 03/26/21 ondansetron 4 mg disintegrating 4 mg PO Q8H PRN #20 tab 03/26/21 tablet famotidine 20 mg tablet 20 mg PO BEDTIME 30 Days #30 tab 04/13/21 lisinopril 20 mg tablet 20 mg PO DAILY #90 tab 04/13/21 metoprolol succinate 25 mg 25 mg PO DAILY 30 Days #30 tab 04/13/21 tablet,extended release 24 hr tramadol 50 mg tablet 50 mg PO QID PRN #120 tab 04/13/21 Allergies Allergy/AdvReac Type Severity Reaction Status Date / Time ibuprofen [IBUPROFEN] AdvReac Mild UPSET Verified 04/21/21 00:59 STOMACH naproxen [From NAPROSYN] AdvReac Unknown STOMACH Verified 04/21/21 00:59 UPSET Review of Systems Review of Systems: Constitutional : No Weight loss, No Fever, No Chills, No Night Sweats, No Fatigue, No Malaise ENT/Mouth : No Hearing loss, No Ear Pain, No Nasal Congestion, No Sinus Pain, No Hoarseness, No sore throat, No Rhinorrhea, difficulty swallowing (food getting stuck, slow transit from mouth to stomach) Eyes: No Eye Pain, No Swelling, No Redness, No Foreign Body, No Discharge, No Vision Changes Cardiovascular : No Chest Pain, No SOB, No Dyspnea on Exertion, No Orthopnea, No Edema, No Palpitations Respiratory : No Cough, No Sputum, No Wheezing, No Smoke Exposure, No Dyspnea Gastrointestinal : No Nausea, No Vomiting, No Diarrhea, No Constipation, No abdominal Pain, No Hematochezia, No Melena Genitourinary : no irregular bleeding, No Dysuria, No Urinary Frequency, No Hematuria, No Urinary Incontinence, No Urgency, No Flank Pain, No Urinary Flow Changes, No Hesitancy Musculoskeletal : No joint pain, No Myalgias, No Joint Swelling Skin : No Skin Lesions, No rash Neuro : No Weakness, No Numbness, No Paresthesias, No Loss of Consciousness, No Dizziness, No Headache Psych : No Anxiety/Panic, No Depression, No SI/HI/AH/VH, No Social Issues, Heme/Lymph: No Bruising, No Bleeding,No Lymphadenopathy Endocrine : No Polyuria, No Polydipsia, No Temperature Intolerance [facility] Past Medical History Medical History Alcohol abuse Anxiety and depression Asthma Degenerative disc disease, lumbar GERD (gastroesophageal reflux disease) Hypercholesterolemia Hypertension Osteoarthritis Tobacco abuse Type 2 diabetes mellitus with hyperglycemia Surgical History History of hand surgery Family History Family History Father No problems noted. Mother Lung cancer Maternal Grandmother History of heart attack Maternal Uncle Lung cancer Social History Social History Housing: Apartment Alcohol intake: current Alcohol intake frequency: holidays/special occasions only Patient Tobacco Use Status: Current everyday Tobacco user Tobacco use type: Cigarette Cigarettes Per Day: 13 e-Cigarette/Vaping Use: Never Used Second Hand Smoke Exposure: Yes Advance Directives: No Advance Directives Information Provided: Yes service: No Current occupational status: disabled Physical Exam Vital Signs: Vital Signs: Last Vital Signs Temp 98.6 F 04/21/21 00:59 Pulse 108 H 04/21/21 00:59 Resp 18 04/21/21 00:59 BP 137/81 04/21/21 00:59 Pulse Ox 99 04/21/21 00:59 Body Mass Index 24.9 Course Course Course Narrative: I discussed the labs with the patient, also patient was p.o. challenged. Patient did well, able to swallow solids and liquids. However, patient likely has achalasia, needs a GI consult in an outpatient basis. Patient does not have any signs or symptoms of malignancy. Patient does have history of alcoholic gastritis, likely causing aphasia versus strictures. I discussed with patient that he will need further GI imaging and possibly an endoscopy. Patient instructed to follow-up with Dr. Lorelei MENDENHALL - Nausea/Vomiting/Diarrhea Lab Data Result diagrams: 04/21/21 01:11 04/21/21 01:11 Labs: Lab Results 04/21/21 04/21/21 Range/Units 01:11 01:11 WBC 11.2 H (4.8-10.8) X10*3/uL RBC 4.64 (4.60-5.80) X10*6/uL Hgb 14.1 (14.0-18.0) g/dl Hct 41.3 L (42.0-52.0) % MCV 89.0 (80.0-98.0) fL MCH 30.4 (27.0-33.0) pg MCHC 34.1 (31.0-36.0) g/dl RDW 14.5 (11.0-16.0) % Plt Count 317 (160-400) X10*3/uL MPV 10.7 (9.4-12.4) fL Immature Gran % (Auto) 0.8 H (0.0-0.4) % Neut % (Auto) 65.0 (45-73) % Lymph % (Auto) 26.6 (20-40) % [place] % (Auto) 7.0 (2-11) % Eos % (Auto) 0.4 (0-4) % Baso % (Auto) 0.2 (0-2) % Lymph # (Auto) 3.0 (1.2-4.9) X10*3/uL [place] # (Auto) 0.8 (0.1-1.2) X10*3/uL Eos # (Auto) 0.1 (0.0-0.4) X10*3/uL Baso # (Auto) 0.0 (0.0-0.2) X10*3/uL Abs Immat Gran (auto) 0.09 H (0.00-0.03) X10*3/uL Absolute Neuts (auto) 7.25 (2.0-8.3) x10*3/uL Absolute Nucleated RBC 0.000 (0.0-0.012) X10*3/uL Nucleated RBC % (auto) 0.0 (0.0-0.2) /100WBC Sodium 135 (135-145) mmol/L Potassium 4.4 (3.3-5.1) mmol/L Chloride 103 (96-108) mmol/L Carbon Dioxide 20 L (22-29) mmol/L Anion Gap 16 (12-20) BUN 27 H D (9-16) mg/dL Creatinine 1.25 (0.5-1.4) mg/dL Estim Creat Clear Calc 53.2 Estimated GFR 59 Random Glucose 230 H (60-115) mg/dL Calcium 9.5 (8.4-10.2) mg/dL Total Bilirubin < 0.2 (0.0-1.0) mg/dL AST 10 (5-37) U/L ALT 21 (0-40) U/L Alkaline Phosphatase 89 (39-117) U/L Total Protein 6.8 (6.5-8.0) g/dL Albumin 3.9 (3.5-5.0) g/dL Discharge Plan Discharge Clinical Impression: Achalasia of digestive tract Patient Disposition: Home, Self-Care Additional Instructions: Please follow-up with your primary care physician tomorrow. If you have any worsening or new symptoms, please return to the emergency room or call 911 Prescriptions: No Action thiamine HCl (vitamin B1) 50 mg tablet 100 mg PO DAILY RF: 0 tizanidine 4 mg tablet 4 mg PO BID PRN (Reason: for muscle spasm) Qty: 60 RF: 2 Flovent HFA 110 mcg/actuation HFA aerosol inhaler 2 puff PO BID Qty: 12 RF: 11 cyanocobalamin (vitamin B-12) 100 mcg tablet 100 mcg PO DAILY 90 Days Qty: 90 RF: 1 albuterol sulfate [ProAir HFA] 90 mcg/actuation HFA aerosol inhaler 2 puff inhalation Q6H PRN (Reason: shortness of breath or wheezing) Qty: 8.5 RF: 0 ondansetron 4 mg tablet,disintegrating 4 mg PO Q8H PRN (Reason: nausea and vomiting) Qty: 20 RF: 0 dexamethasone 6 mg tablet 6 mg PO DAILY 7 Days Qty: 7 RF: 0 azithromycin 250 mg tablet 250 mg PO DAILY 4 Days Qty: 4 RF: 0 gabapentin 300 mg tablet extended release 24 hr 300 mg PO BID RF: 0 quetiapine [Seroquel] 100 mg tablet 100 mg PO BEDTIME RF: 0 metformin 500 mg tablet 500 mg PO BID Qty: 60 RF: 3 simvastatin 10 mg tablet 10 mg PO BEDTIME 30 Days Qty: 30 RF: 3 metoprolol succinate 25 mg tablet extended release 24 hr 25 mg PO DAILY 30 Days Qty: 30 RF: 0 famotidine 20 mg tablet 20 mg PO BEDTIME 30 Days Qty: 30 RF: 0 lisinopril 20 mg tablet 20 mg PO DAILY Qty: 90 RF: 1 tramadol 50 mg tablet 50 mg PO QID PRN (Reason: pain) Qty: 120 RF: 1 Referrals: Choco Moseley [Physician] - 2 days ([place])
--- NOTE | 2021-04-21 03:39 | PC.NURSE ---
pt drank gingerale and had saltine crackers with no difficutly. pt is up going to the bathroom and deneis pain, no n/v.
== END 2021-04-21 03:54 | disposition home or self-care (01) ==
PROVIDERS: Emergency Provider Emergency Medicine; PCP Internal Medicine
DX: K22.0 Achalasia of cardia (principal); R11.2 Nausea with vomiting, unspecified; F17.210 Nicotine dependence, cigarettes, uncomplicated; Z71.6 Tobacco abuse counseling; Z79.899 Other long term (current) drug therapy
CPT/HCPCS: 36415; 80053; 85025; 99283

== ENCOUNTER → 2021-05-19 11:04 | Outpatient (BNVA) | payer OTHER, SELFPAY | PROVIDERS: PCP Internal Medicine; Referring Provider Internal Medicine; Visit Provider Internal Medicine Cardiovascular Disease | DX: R07.9 Chest pain, unspecified (principal) | CPT/HCPCS: 93005; 99202 ==

== ENCOUNTER → 2021-06-07 09:05 | Outpatient (REF) | payer OTHER, SELFPAY ==
--- NOTE | ~2021-06-07 | NM_ITS ---
Lexiscan Myocardial perfusion study Indication: Chest pain, assess for coronary disease and ischemia. Technique: The patient was brought in for a Lexiscan perfusion study on 06/07/2021 and was injected 0.4 mg of Lexiscan intravenously. Within a minute of this injection 25 mCi of sestamibi was given intravenously. Images were obtained using the SPECT gamma camera interlaced with the gating device. Images were obtained in supine position. Resting perfusion study was performed on 06/08/2021. Patient was administered 25 mCi of sestamibi intravenously at rest. Images were then obtained in supine position. Total DLP 78mGy-cm. Images were processed with the software and compared side to side in short axis, horizontal long axis and vertical long axis views. Findings: Raw acquisition was reviewed. The stress perfusion study showed no significant perfusion abnormality. With CT attenuation correction, perfusion actually looks worse and hence could be a technical issue. The gated study shows normal LV systolic function with calculated LVEF of 59%. LV cavity is normal in size. The gated study shows normal wall thickening and contraction of segments. Resting study shows no significant perfusion abnormality. Gating at rest reveals normal wall motion with ejection fraction at 71%. The findings are consistent with no reversible or fixed perfusion abnormality. NM/NM solo perf SPECT rest & str Impression: 1. Myocardial perfusion imaging study shows normal myocardial perfusion. 2. Gated LVEF is 59% during stress and 71% during rest. 3. Transient ischemic dilatation not present. EKG component of the test reported separately.
--- NOTE | 2021-06-07 09:09 | CA_ITS ---
Acquisition Time: 2021-06-07 09:31:44 Total Exercise Time: 00:02:00 Test Indications: CP Medications: SEE CHART Protocol: LEXISCAN Max HR: 117 BPM 72% of Pred: 161 BPM Max BP: 130/080 mmHG Max Work Load: 1.0 METS Pharmacological stress test with Lexiscan injection, while sitting and kicking his legs, without anginal symptoms, without arrythmia, with normotensive response to injection, with nondiagnostic EKG for ischemia. Nuclear images pending. Test reviewed with Dr Ho. Referred By: Tonny Baltazar Overread By: JACQUE GRIGGS
== END ==
LOC: HO.CARD 09:05
PROVIDERS: Visit Provider Internal Medicine Cardiovascular Disease
DX: R07.9 Chest pain, unspecified (principal)
CPT/HCPCS: 78452; 93017; A9500; J0280; J2785

== ENCOUNTER 2021-07-26 10:11 | Outpatient (REF) | payer OTHER, SELFPAY ==
[2021-07-26 11:33] LABS: Estimated Average Glucose 140 mg/dL; Hemoglobin A1c % 6.5 %
[2021-07-26 12:16] LABS: Alanine Aminotransferase 14 U/L (0-40); Albumin Level 4.1 g/dL (3.5-5.0); Alkaline Phosphatase 73 U/L (39-117); Anion Gap 14 (12-20); Aspartate Amino Transferase 14 U/L (5-37); Bilirubin Total 0.4 mg/dL (0.0-1.0); Blood Urea Nitrogen 11 mg/dL (9-16); Calcium 10.6 mg/dL (8.4-10.2); Carbon Dioxide 25 mmol/L (22-29); Chloride 104 mmol/L (96-108); Cholesterol 181 mg/dL; Estimated Glomerular Filt Rate > 60; Glucose Random 120 mg/dL (60-115); HDL Cholesterol 37 mg/dL; LDL Cholesterol Calculated 118 mg/dl; Potassium 4.4 mmol/L (3.3-5.1); Sodium 139 mmol/L (135-145); Total Protein 7.3 g/dL (6.5-8.0); Triglycerides 134 mg/dL
[2021-07-26 12:16] LABS: Creatinine Urine 150.61 mg/dL
== END 2021-07-26 10:12 | disposition home or self-care (01) ==
LOC: HO.LAB 10:11
PROVIDERS: PCP Internal Medicine; Visit Provider Internal Medicine
DX: E11.65 Type 2 diabetes mellitus with hyperglycemia (principal); E78.00 Pure hypercholesterolemia, unspecified; E83.52 Hypercalcemia
CPT/HCPCS: 36415; 80053; 80061; 83036

== ENCOUNTER 2022-01-24 02:13 | Emergency (ER) | payer OTHER, SELFPAY ==
--- NOTE | ~2022-01-24 | XR_ITS ---
EXAMINATION: XR LUMBOSACRAL SPINE CLINICAL INFORMATION: Pain COMPARISON: MRI 09/11/2018 TECHNIQUE: Three views of the lumbosacral spine. FINDINGS: No acute fracture or subluxation. Mild dextroscoliosis. Vertebral body height and alignment otherwise maintained. Diffuse disc space narrowing with prominent endplate osteophytes. Diffuse facet arthropathy. Normal bowel gas pattern. XR/XR lumbar spine 2-3V IMPRESSION: No acute abnormality. Moderate degenerative change throughout.
--- NOTE | ~2022-01-24 | XR_ITS ---
EXAMINATION: XR HIP, LEFT CLINICAL INFORMATION: Pain COMPARISON: 03/21/2019 TECHNIQUE: Two views of the left hip. Frontal view of the pelvis. FINDINGS: There is a nondisplaced subcapital right femoral neck fracture. Prominent osteophytes of the right hip. Severe degenerative changes of the left hip with flattening of the femoral head. Prominent osteophytes with sclerosis. The pelvic rim is intact. Normal bowel gas pattern. XR/XR hip LT min 2V IMPRESSION: Nondisplaced subcapital right femoral neck fracture. Severe degenerative changes of both hips, left worse than right.
--- NOTE | ~2022-01-24 | CT_ITS ---
EXAMINATION: CT PELVIS WITHOUT CONTRAST CLINICAL INFORMATION: Pain. Evaluate fracture. COMPARISON: Radiographs from today. TECHNIQUE: Helical scanning was performed with submillimeter collimation through the pelvis. Sagittal and coronal multiplanar 2-D reconstructions were obtained. This CT examination was performed using dose optimization techniques as appropriate, variously including the following: *Automated exposure control *Adjustment of mA and/or kV according to patient size (this includes techniques or standardized protocols for targeted exams where dose is matched to indication/reason for exam; i.e. extremities or head) *Use of iterative reconstruction technique DLP: 307 mGy-cm FINDINGS: PELVIS: No pelvic mass. Normal appendix. No colonic wall thickening. Scattered diverticulosis without diverticulitis. Normally distended bladder without wall thickening. No abdominal wall hernia. No lymphadenopathy. OSSEOUS STRUCTURES: There is no right femoral neck fracture. The appearance of the fracture on prior radiograph likely corresponds to prominent osteophytes of the femoral head causing the appearance of a fracture. Severe degenerative change of both hips, particularly on the left where there is loss of the joint space and prominent subchondral cyst formation. Prominent osteophytes with sclerosis. The pelvic rim is intact with appropriate alignment at the sacroiliac joints and pubic symphysis. CT/CT pelvis wo con IMPRESSION: There is no acute pelvic fracture. No right femoral neck fracture. The appearance on prior radiograph likely corresponds with prominent marginal osteophytes causing the lucent appearance Severe degenerative change of both hips, left greater than right.
[2022-01-24 03:30] VITALS: BP 113/69; PULSE 86; RESP 16; TEMP 36.6; O2SAT 97; BMI 22.8
--- NOTE | 2022-01-24 05:16 | ED.BACK ---
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 The patient reports his PCP is Rx him tramadol but the patient states it doesn't work and they will not prescribe anything else. He is here because he cannot sleep. MD elicited complaint: back pain Pertinent past history: prior back pain Onset (ago): month(s) Timing: progressively worsening Severity: moderate Similar Symptoms Previously: Yes Quality: dull, aching and throbbing Location: lumbar spine Radiation: left upper leg Exacerbating factors: immobilization Relieving factors: movement and supine Context: unknown Associated symptoms: denies other symptoms Treatments prior to arrival: other medications and prescription analgesics Work related injury: No Related Data Home Medications Medication Instructions Recorded Confirmed gabapentin 300 mg tablet,extended 300 mg PO BID 03/24/20 12/13/21 release 24 hr quetiapine 100 mg tablet (Seroquel) 100 mg PO BEDTIME 03/24/20 12/13/21 thiamine HCl (vitamin B1) 50 mg 100 mg PO DAILY 05/31/20 12/13/21 tablet Previous Rx's Medication Instructions Recorded tizanidine 4 mg tablet 4 mg PO BID PRN for muscle spasm 06/22/20 #60 tabs ondansetron 4 mg disintegrating 4 mg PO Q8H PRN nausea and 03/26/21 tablet vomiting #20 tabs metoprolol succinate 25 mg 25 mg PO DAILY 30 days #30 tabs 04/13/21 tablet,extended release 24 hr blood pressure monitor (Blood #1 ea 05/04/21 Pressure Kit) cane #1 ea 05/04/21 metformin 500 mg tablet 500 mg PO BID #180 tabs 06/06/21 lisinopril 20 mg tablet 20 mg PO DAILY #90 tabs 07/20/21 acetaminophen 500 mg tablet 1,000 mg PO Q6H PRN pain #30 tabs 07/27/21 albuterol sulfate 90 mcg/actuation 2 puff inhalation Q6H PRN 10/13/21 aerosol inhaler (ProAir HFA) shortness of breath or wheezing #8.5 grams cyanocobalamin (vitamin B-12) 100 100 mcg PO DAILY 90 days #90 tabs 10/13/21 mcg tablet fluticasone propionate 110 2 puff PO BID #12 grams 10/13/21 mcg/actuation HFA aerosol inhaler (Flovent HFA) simvastatin 10 mg tablet 10 mg PO BEDTIME 90 days #90 tabs 10/19/21 lidocaine 5 % topical patch 1 patch topical DAILY #15 ea 10/31/21 (Lidoderm) tramadol 50 mg tablet 50 mg PO QID PRN pain #120 tabs 01/13/22 famotidine 20 mg tablet 20 mg PO BEDTIME 90 days #90 tabs 01/16/22 cyclobenzaprine 10 mg tablet 10 mg PO TID PRN muscle spasm #14 01/24/22 tabs diclofenac sodium 1 % topical gel 2 g topical QID #100 grams 01/24/22 (Voltaren Arthritis Pain) hydrocodone 5 mg-acetaminophen 325 1 tab PO Q6H PRN pain #10 tabs 01/24/22 mg tablet lidocaine 5 % topical patch 1 patch topical DAILY #30 ea 01/24/22 Allergies Allergy/AdvReac Type Severity Reaction Status Date / Time ibuprofen [IBUPROFEN] AdvReac Mild UPSET Verified 12/13/21 16:23 STOMACH naproxen [From NAPROSYN] AdvReac Unknown STOMACH Verified 12/13/21 16:23 UPSET Review of Systems Review of Systems: Constitutional : No Weight loss, No Fever, No Chills, ENT/Mouth : No Hearing loss, No Ear Pain, No Nasal Congestion, No Sinus Pain, No Hoarseness, No sore throat, No Rhinorrhea, No Swallowing Difficulty Cardiovascular : No Chest Pain, No SOB Respiratory : No Cough, No Dyspnea Gastrointestinal : No Nausea, No Vomiting, No Diarrhea, No abdominal Pain, No Hematochezia, No Melena Genitourinary : No Dysuria, No Urinary Frequency, No Hematuria, No Urinary Incontinence, Musculoskeletal : positive back pain Skin : No Skin Lesions, No rash Neuro : No Weakness, No Numbness, No Paresthesias, no loss of bowel or bladder incontinence, no saddle anesthesia PMFSH Past Medical History Medical History Alcohol abuse Asthma Degenerative disc disease, lumbar GERD (gastroesophageal reflux disease) GERD (gastroesophageal reflux disease) Hypercholesterolemia Hypertension Osteoarthritis Tobacco abuse Type 2 diabetes mellitus with hyperglycemia Surgical History History of hand surgery Family History Family History Father No problems noted. Mother Lung cancer Maternal Grandmother History of heart attack Maternal Uncle Lung cancer Social History Social History Housing: Apartment Alcohol intake: current Alcohol intake frequency: holidays/special occasions only Patient Tobacco Use Status: Current everyday Tobacco user Tobacco use type: Cigarette Cigarettes Per Day: 13 e-Cigarette/Vaping Use: Never Used Second Hand Smoke Exposure: Yes Advance Directives: No Advance Directives Information Provided: Yes service: No Current occupational status: disabled Cognitive needs: No Hearing needs: No Vision needs: Yes Physical Exam Vital Signs: Vital Signs: Last Vital Signs Temp 97.8 F 01/24/22 05:48 Pulse 77 01/24/22 05:48 Resp 16 01/24/22 05:48 BP 130/76 01/24/22 05:48 Pulse Ox 98 01/24/22 05:48 O2 Del Method 01/24/22 05:48 BMI result Body Mass Index 22.8 Appearance: Alert. Oriented X3. No acute distress. Eyes: Pupils equal, round and reactive to light. ENT: Pharynx normal. Neck: Normal inspection. Neck supple. CVS: Normal heart rate and rhythm. Pulses normal. Respiratory: No respiratory distress. Breath sounds normal. Abdomen: Soft and nontender. Back: ttp along left lower lumbar spine Skin: Skin warm and dry. Normal skin color. Normal skin turgor. Extremities: No lower extremity edema. No calf ttp Neuro: Oriented X 3. No motor deficit. No sensory deficit. Course Course Course Narrative: symptoms of R hip do not match up clinically CT scan of R hip ordered to confirm fracture - pain is mostly in L hip, has full ROM of R hip no fracture on CT scan stable for DC MDM - Back Pain/Injury MDM Narrative Medical decision making narrative: 61 yo male with hx of anxiety, chronic back pain - no b/b incontinence, no saddle anesthesia no IVDA< no AC therapy here with chronic back pain but mostly I think he has needs for pain control at night. I reviewed his PCP notes and it seems they do not want to go beyond tramadol. He does not need MRI at this time no CE symptoms. Flexeril and lidocaine patches ordered. Discharge Plan Discharge Clinical Impression: Chronic low back pain Qualifiers: Back pain laterality: bilateral Sciatica presence: without sciatica Qualified Code(s): M54.50 - Low back pain, unspecified Arthralgia Qualifiers: Joint pain location: hip Laterality: bilateral Qualified Code(s): M25.551 - Pain in right hip Patient Disposition: Home, Self-Care Instructions: Arthralgia (ED), Back Pain (ED) Additional Instructions: return to ED for any worsening symptoms or concerns Prescriptions: New cyclobenzaprine 10 mg tablet 10 mg PO TID PRN (Reason: muscle spasm) Qty: 14 0RF hydrocodone-acetaminophen 5-325 mg tablet 1 tab PO Q6H PRN (Reason: pain) Qty: 10 0RF Rx Instructions: partial fill okay; Partial Fill upon patient request. lidocaine 5 % adhesive patch,medicated 1 patch topical DAILY Qty: 30 0RF Rx Instructions: leave on most painful area for up to 12 hrs diclofenac sodium [Voltaren Arthritis Pain] 1 % gel 2 g topical QID Qty: 100 0RF Rx Instructions: apply to single elbow, wrist or hand; for hand includes palm/fingers/back of hand No Action thiamine HCl (vitamin B1) 50 mg tablet 100 mg PO DAILY tizanidine 4 mg tablet 4 mg PO BID PRN (Reason: for muscle spasm) Qty: 60 2RF metformin 500 mg tablet 500 mg PO BID Qty: 180 3RF lisinopril 20 mg tablet 20 mg PO DAILY Qty: 90 1RF albuterol sulfate [ProAir HFA] 90 mcg/actuation HFA aerosol inhaler 2 puff inhalation Q6H PRN (Reason: shortness of breath or wheezing) Qty: 8.5 0RF cyanocobalamin (vitamin B-12) 100 mcg tablet 100 mcg PO DAILY 90 Days Qty: 90 1RF Flovent HFA 110 mcg/actuation HFA aerosol inhaler 2 puff PO BID Qty: 12 11RF simvastatin 10 mg tablet 10 mg PO BEDTIME 90 Days Qty: 90 2RF lidocaine [Lidoderm] 5 % adhesive patch,medicated 1 patch topical DAILY Qty: 15 0RF Rx Instructions: leave on most painful area for up to 12 hrs tramadol 50 mg tablet 50 mg PO QID PRN (Reason: pain) Qty: 120 0RF famotidine 20 mg tablet 20 mg PO BEDTIME 90 Days Qty: 90 1RF ondansetron 4 mg tablet,disintegrating 4 mg PO Q8H PRN (Reason: nausea and vomiting) Qty: 20 0RF gabapentin 300 mg tablet extended release 24 hr 300 mg PO BID quetiapine [Seroquel] 100 mg tablet 100 mg PO BEDTIME (DME) cane Device See Rx Instructions .Route Qty: 1 0RF Rx Instructions: As directed (DME) blood pressure monitor [Blood Pressure Kit] Kit See Rx Instructions .ROUTE .MEDSUPPLY Qty: 1 0RF Rx Instructions: As directed metoprolol succinate 25 mg tablet extended release 24 hr 25 mg PO DAILY 30 Days Qty: 30 0RF acetaminophen 500 mg tablet 1,000 mg PO Q6H PRN (Reason: pain) Qty: 30 0RF Referrals: Physician,Unknown J [Primary Care Provider] - 3 days (Dr. Edge if not better) Print Language: Syriac
[2022-01-24 05:48] VITALS: BP 130/76; PULSE 77; RESP 16; TEMP 36.6; O2SAT 98
[2022-01-24] MEDS: Cyclobenzaprine HCl 10 MG TABLET PO (06:01)
[2022-01-24] MEDS: Lidocaine 4 % Patch ADH..PATCH 1 PATCH TRANSDERMA (06:01)
[2022-01-24] MEDS: oxyCODONE HCl Immed Release 5 MG TABLET 10 MG PO (07:25)
== END 2022-01-24 07:30 | disposition home or self-care (01) ==
PROVIDERS: Emergency Provider Emergency Medicine
DX: G89.29 Other chronic pain (principal); M54.50 Low back pain, unspecified; M25.552 Pain in left hip; E11.9 Type 2 diabetes mellitus without complications; I10 Essential (primary) hypertension; E78.00 Pure hypercholesterolemia, unspecified; F17.210 Nicotine dependence, cigarettes, uncomplicated; Z79.84 Long term (current) use of oral hypoglycemic drugs; Z79.02 Long term (current) use of antithrombotics/antiplatelets; Z79.899 Other long term (current) drug therapy
CPT/HCPCS: 72100; 72192; 73502; 99284

== ENCOUNTER 2022-04-26 08:29 | Outpatient (REF) | payer OTHER, SELFPAY ==
[2022-04-26 08:50] LABS: MANUAL DIFF FLAG NO
[2022-04-26 09:11] LABS: Basophils Absolute Auto 0.1 X10*3/uL (0.0-0.2); Basophils Percent Auto 0.6 % (0-2); Eosinophils Absolute Auto 0.2 X10*3/uL (0.0-0.4); Eosinophils Percent Auto 1.5 % (0-4); Hematocrit 45.8 % (42.0-52.0); Hemoglobin 15.3 g/dl (14.0-18.0); Imm Gran Abs Auto 0.03 X10*3/uL (0.00-0.03); Imm Gran Pct Auto 0.3 % (0.0-0.4); Lymphocytes Absolute Auto 3.4 X10*3/uL (1.2-4.9); Lymphocytes Percent Auto 30.6 % (20-40); Mean Corpuscular HGB Conc 33.4 g/dl (31.0-36.0); Mean Corpuscular Hemoglobin 31.1 pg (27.0-33.0); Mean Corpuscular Volume 93.1 fL (80.0-98.0); Mean Platelet Volume 11.8 fL (9.4-12.4); Monocytes Absolute Auto 0.9 X10*3/uL (0.1-1.2); Monocytes Percent Auto 7.7 % (2-11); Neutrophils Absolute Auto 6.5 x10*3/uL (2.0-8.3); Neutrophils Percent Auto 59.3 % (45-73); Platelet Count 219 X10*3/uL (160-400); Red Blood Count 4.92 X10*6/uL (4.60-5.80); Red Cell Distribution Width 13.8 % (11.0-16.0)
[2022-04-26 09:14] LABS: Estimated Average Glucose 131 mg/dL; Hemoglobin A1c % 6.2 %
[2022-04-26 09:17] LABS: INTERNATIONAL NORM RATIO 0.9 (0.9-1.1); Prothrombin Time 10.7 SEC (10.0-13.1)
[2022-04-26 09:19] LABS: Partial Thromboplastin Time 35.4 SEC (26.0-36.4)
[2022-04-26 09:29] LABS: Anion Gap 19 (12-20); Blood Urea Nitrogen 11 mg/dL (9-16); Carbon Dioxide 21 mmol/L (22-29); Chloride 103 mmol/L (96-108); Estimated Glomerular Filt Rate > 60; Glucose Random 119 mg/dL (60-115); Potassium 4.4 mmol/L (3.3-5.1); Sodium 139 mmol/L (135-145)
== END 2022-04-26 08:30 | disposition home or self-care (01) ==
LOC: HO.LAB 08:29
PROVIDERS: PCP Internal Medicine; Visit Provider Orthopaedic Surgery
DX: Z01.812 Encounter for preprocedural laboratory examination (principal); R73.09 Other abnormal glucose; Z79.01 Long term (current) use of anticoagulants
CPT/HCPCS: 36415; 80051; 82565; 82947; 83036; 84520; 85025; 85610; 85730

== ENCOUNTER 2022-08-11 10:47 | Emergency (ER) | payer OTHER, SELFPAY ==
--- NOTE | ~2022-08-11 | XR_ITS ---
EXAMINATION: XR HIP, RIGHT CLINICAL INFORMATION: Right hip pain status post replacement 1 week ago. COMPARISON: CT pelvis dated 01/25/2020 TECHNIQUE: Single AP view of the pelvis Two views of the right hip. FINDINGS: Bilateral total hip arthroplasty with single acetabular augmentation screws. Components in expected positions, with femoral heads concentrically seated within their acetabular cups. No evidence of hardware failure or complication. Pelvic ring intact. Soft tissues unremarkable. XR/XR hip RT w PEL1V IMPRESSION: Bilateral total hip arthroplasty without evidence of hardware failure or complication.
[2022-08-11 10:51] VITALS: BP 147/80; PULSE 115; RESP 16; TEMP 36.6; O2SAT 100; BMI 21.4
[2022-08-11 14:08] VITALS: BP 166/98; PULSE 112; RESP 18; O2SAT 99
--- NOTE | 2022-08-11 14:22 | ED.LOWEXIN ---
HPI - Extremity Injury (Lower) General Chief Complaint: Extremity Injury, Lower Stated Complaint: hip seperation Time Seen by Provider: 08/11/22 14:00 Source: patient Limitations: no limitations History of Present Illness HPI Narrative: 61 year old male status post hip replacement at [facility] by Dr. Clark. He feels like the hip is out at this time. He states he is walking witha walker her called his doctor and wants XR's. He denies any falls or injuries. MD complaint: hip injury Related Data Home Medications Medication Instructions Recorded Confirmed gabapentin 300 mg tablet,extended 300 mg PO BID 03/24/20 12/13/21 release 24 hr quetiapine 100 mg tablet (Seroquel) 100 mg PO BEDTIME 03/24/20 12/13/21 thiamine HCl (vitamin B1) 50 mg 100 mg PO DAILY 05/31/20 12/13/21 tablet oxycodone 5 mg tablet 10 mg PO Q6H PRN 05/29/22 Previous Rx's Medication Instructions Recorded tizanidine 4 mg tablet 4 mg PO BID PRN for muscle spasm 06/22/20 #60 tabs ondansetron 4 mg disintegrating 4 mg PO Q8H PRN nausea and 03/26/21 tablet vomiting #20 tabs metoprolol succinate 25 mg 25 mg PO DAILY 30 days #30 tabs 04/13/21 tablet,extended release 24 hr blood pressure monitor (Blood #1 ea 05/04/21 Pressure Kit) cane #1 ea 05/04/21 metformin 500 mg tablet 500 mg PO BID #180 tabs 06/06/21 lisinopril 20 mg tablet 20 mg PO DAILY #90 tabs 07/20/21 acetaminophen 500 mg tablet 1,000 mg PO Q6H PRN pain #30 tabs 07/27/21 fluticasone propionate 110 2 puff PO BID #12 grams 10/13/21 mcg/actuation HFA aerosol inhaler (Flovent HFA) simvastatin 10 mg tablet 10 mg PO BEDTIME 90 days #90 tabs 10/19/21 lidocaine 5 % topical patch 1 patch topical DAILY #15 ea 10/31/21 (Lidoderm) famotidine 20 mg tablet 20 mg PO BEDTIME 90 days #90 tabs 01/16/22 cyclobenzaprine 10 mg tablet 10 mg PO TID PRN muscle spasm #14 01/24/22 tabs diclofenac sodium 1 % topical gel 2 g topical QID #100 grams 01/24/22 (Voltaren Arthritis Pain) hydrocodone 5 mg-acetaminophen 325 1 tab PO Q6H PRN pain #10 tabs 01/24/22 mg tablet lidocaine 5 % topical patch 1 patch topical DAILY #30 ea 01/24/22 albuterol sulfate 90 mcg/actuation 2 puff inhalation QID PRN 05/25/22 aerosol inhaler (Ventolin HFA) shortness of breath or wheezing #8.5 grams BEDSIDE COMMODE #1 ea 05/29/22 ELECTRIC SCOOTER #1 ea 06/22/22 tramadol 50 mg tablet 50 mg PO QID PRN pain #120 tabs 07/14/22 Allergies Allergy/AdvReac Type Severity Reaction Status Date / Time ibuprofen [IBUPROFEN] AdvReac Mild UPSET Verified 08/11/22 10:51 STOMACH naproxen [From NAPROSYN] AdvReac Unknown STOMACH Verified 08/11/22 10:51 UPSET Review of Systems Review of Systems: Review of systems: General: Patient denies any fever chills recent illness or falls Musculoskeletal: Denies back pain or body aches or other injuries HEENT: denies headache, runny nose, ear pain Respiratory: denies shortness of breath, cough Cardiovascular: no chest pain or palpitations : denies dysuria, frequency Abdomen: no nausea vomiting denies abdominal pain Extremities: no swelling, no pain Skin: no diaphoresis Yes all other systems are reviewed and are negative PMFSH Past Medical History Medical History (Updated 08/11/22 @ 15:22 by Nathen Flowers DO) Alcohol abuse Asthma Degenerative disc disease, lumbar GERD (gastroesophageal reflux disease) GERD (gastroesophageal reflux disease) Hypercholesterolemia Hypertension Osteoarthritis Tobacco abuse Type 2 diabetes mellitus with hyperglycemia Surgical History (Updated 05/29/22 @ 15:39 by Grace Edge MD) History of hand surgery Family History Family History Father No problems noted. Mother Lung cancer Maternal Grandmother History of heart attack Maternal Uncle Lung cancer Social History Social History Housing: Apartment Alcohol intake: never Patient Tobacco Use Status: Current everyday Tobacco user Tobacco use type: Cigarette Cigarettes Per Day: 13 Smoked in Last 30 Days: Yes e-Cigarette/Vaping Use: Never Used Second Hand Smoke Exposure: Yes Use of substances other than those prescribed or required for medical reasons: No Advance Directives: No Advance Directives Information Provided: No service: No Current occupational status: disabled Cognitive needs: No Hearing needs: No Vision needs: Yes Physical Exam Vital Signs: Vital Signs: Last Vital Signs Temp 98 F 08/11/22 10:51 Pulse 112 H 08/11/22 14:08 Resp 18 08/11/22 14:08 BP 166/98 H 08/11/22 14:08 Pulse Ox 99 08/11/22 14:08 O2 Del Method 08/11/22 14:08 BMI result Body Mass Index 21.4 General: Well-appearing well-nourished in no signs of distress HEENT: Normocephalic atraumatic Neck: No signs of JVD, no masses no tenderness or lymphadenopathy Cardiovascular: Regular rate and rhythm Respiratory: Clear to auscultation bilaterally Abdomen: Soft nontender no masses Extremities:Skin around wound looks okay no signs of dislocation it is tender Normal pedal pulses no signs of edema Skin: Dry warm no rashes Back: No tenderness full ROM Medications Administered Discontinued Medications Generic Name Dose Route Start Last Admin Trade Name Freq PRN Reason Stop Dose Admin Morphine Sulfate 6 mg 08/11/22 14:24 08/11/22 15:17 Morphine Sulfate 10 Mg/Ml Cartridge IM 08/11/22 14:25 6 mg ONCE ONE Administration Protocol Medical Decision Making Medical Decision Making [facility] Narrative: I will get a XR of the hip Differential Diagnosis Differential Diagnoses: The differential diagnosis associated with the presentation includes Concern for fracture or dislocation Admission/Observation Consideration of admission/observation: Escalation of care including admission/observation considered Independent Interpretation I performed an independent interpretation of an: Plain X-Ray Interpretation: HIp XR is unremarkable Discharge Plan Discharge Clinical Impression: Acute postoperative pain of right hip Patient Disposition: Home, Self-Care Instructions: Hip Pain (ED) Additional Instructions: Please call to follow up with your doctor. Prescriptions: No Action thiamine HCl (vitamin B1) 50 mg tablet 100 mg PO DAILY tizanidine 4 mg tablet 4 mg PO BID PRN (Reason: for muscle spasm) Qty: 60 2RF metformin 500 mg tablet 500 mg PO BID Qty: 180 3RF lisinopril 20 mg tablet 20 mg PO DAILY Qty: 90 1RF Flovent HFA 110 mcg/actuation HFA aerosol inhaler 2 puff PO BID Qty: 12 11RF simvastatin 10 mg tablet 10 mg PO BEDTIME 90 Days Qty: 90 2RF lidocaine [Lidoderm] 5 % adhesive patch,medicated 1 patch topical DAILY Qty: 15 0RF Rx Instructions: leave on most painful area for up to 12 hrs famotidine 20 mg tablet 20 mg PO BEDTIME 90 Days Qty: 90 1RF albuterol sulfate [Ventolin HFA] 90 mcg/actuation HFA aerosol inhaler 2 puff inhalation QID PRN (Reason: shortness of breath or wheezing) Qty: 8.5 0RF (DME) ELECTRIC SCOOTER See Rx Instructions .Route .MEDSUPPLY Qty: 1 0RF Rx Instructions: As directed tramadol 50 mg tablet 50 mg PO QID PRN (Reason: pain) Qty: 120 0RF ondansetron 4 mg tablet,disintegrating 4 mg PO Q8H PRN (Reason: nausea and vomiting) Qty: 20 0RF cyclobenzaprine 10 mg tablet 10 mg PO TID PRN (Reason: muscle spasm) Qty: 14 0RF hydrocodone-acetaminophen 5-325 mg tablet 1 tab PO Q6H PRN (Reason: pain) Qty: 10 0RF Rx Instructions: partial fill okay; Partial Fill upon patient request. lidocaine 5 % adhesive patch,medicated 1 patch topical DAILY Qty: 30 0RF Rx Instructions: leave on most painful area for up to 12 hrs diclofenac sodium [Voltaren Arthritis Pain] 1 % gel 2 g topical QID Qty: 100 0RF Rx Instructions: apply to single elbow, wrist or hand; for hand includes palm/fingers/back of hand gabapentin 300 mg tablet extended release 24 hr 300 mg PO BID quetiapine [Seroquel] 100 mg tablet 100 mg PO BEDTIME (DME) cane Device See Rx Instructions .Route Qty: 1 0RF Rx Instructions: As directed (DME) blood pressure monitor [Blood Pressure Kit] Kit See Rx Instructions .ROUTE .MEDSUPPLY Qty: 1 0RF Rx Instructions: As directed metoprolol succinate 25 mg tablet extended release 24 hr 25 mg PO DAILY 30 Days Qty: 30 0RF oxycodone 5 mg tablet 10 mg PO Q6H PRN (DME) BEDSIDE COMMODE See Rx Instructions .Route .MEDSUPPLY Qty: 1 0RF Rx Instructions: As directed acetaminophen 500 mg tablet 1,000 mg PO Q6H PRN (Reason: pain) Qty: 30 0RF
[2022-08-11] MEDS: Morphine Sulfate 10 MG/ML CARTRIDGE 6 MG IM (15:17)
== END 2022-08-11 16:07 | disposition home or self-care (01) ==
PROVIDERS: Emergency Provider Student in an Organized Health Care Education/Training Program; PCP Internal Medicine
DX: M25.551 Pain in right hip (principal); F17.210 Nicotine dependence, cigarettes, uncomplicated; Z71.6 Tobacco abuse counseling; Z79.899 Other long term (current) drug therapy
CPT/HCPCS: 73502; 96372; 99284; J2270

== ENCOUNTER 2022-10-10 09:17 | Outpatient (REF) | payer OTHER, SELFPAY ==
[2022-10-10 09:39] LABS: MANUAL DIFF FLAG NO
[2022-10-10 10:28] LABS: Basophils Absolute Auto 0.1 X10*3/uL (0.0-0.2); Basophils Percent Auto 0.8 % (0-2); Eosinophils Absolute Auto 0.2 X10*3/uL (0.0-0.4); Eosinophils Percent Auto 2.4 % (0-4); Hematocrit 42.6 % (42.0-52.0); Hemoglobin 14.4 g/dl (14.0-18.0); Imm Gran Abs Auto 0.01 X10*3/uL (0.00-0.03); Imm Gran Pct Auto 0.1 % (0.0-0.4); Lymphocytes Absolute Auto 2.7 X10*3/uL (1.2-4.9); Lymphocytes Percent Auto 35.2 % (20-40); Mean Corpuscular HGB Conc 33.8 g/dl (31.0-36.0); Mean Corpuscular Hemoglobin 29.9 pg (27.0-33.0); Mean Corpuscular Volume 88.6 fL (80.0-98.0); Mean Platelet Volume 12.1 fL (9.4-12.4); Monocytes Absolute Auto 0.6 X10*3/uL (0.1-1.2); Monocytes Percent Auto 7.5 % (2-11); Neutrophils Absolute Auto 4.1 x10*3/uL (2.0-8.3); Platelet Count 241 X10*3/uL (160-400); Red Blood Count 4.81 X10*6/uL (4.60-5.80); Red Cell Distribution Width 15.6 % (11.0-16.0); White Blood Count 7.7 X10*3/uL (4.8-10.8)
[2022-10-10 11:02] LABS: Estimated Average Glucose 131 mg/dL; Hemoglobin A1c % 6.2 %
[2022-10-10 11:13] LABS: Creatinine Urine 119.59 mg/dL; Microalbumin Urine < 5.0 mg/L
[2022-10-10 12:23] LABS: Alanine Aminotransferase 17 U/L (0-40); Albumin Level 4.2 g/dL (3.5-5.0); Alkaline Phosphatase 72 U/L (39-117); Anion Gap 14 (12-20); Aspartate Amino Transferase 17 U/L (5-37); Bilirubin Total 0.5 mg/dL (0.0-1.0); Blood Urea Nitrogen 10 mg/dL (9-16); Calcium 9.7 mg/dL (8.4-10.2); Carbon Dioxide 25 mmol/L (22-29); Chloride 106 mmol/L (96-108); Cholesterol 150 mg/dL; Estimated Glomerular Filt Rate > 60; Glucose Random 109 mg/dL (60-115); HDL Cholesterol 46 mg/dL; LDL Cholesterol Calculated 88 mg/dl; Potassium 5.1 mmol/L (3.3-5.1); Sodium 140 mmol/L (135-145); Total Protein 6.9 g/dL (6.5-8.0); Triglycerides 82 mg/dL
[2022-10-10 12:56] LABS: Folate 14.1 ng/mL (> or = 4.0); Free T4 (Free Thyroxine) 1.06 ng/dL (0.71-1.85); Prostate Specific Antigen Scr 0.13 ng/mL (<0.05-4.0); Thyroid Stimulating Hormone 1.24 uIU/mL (0.32-4.0); Vitamin B12 511 pg/mL (200-900)
[2022-10-12 18:04] LABS: PTHI 41 pg/mL (16-77)
== END 2022-10-10 09:18 | disposition home or self-care (01) ==
LOC: HO.LAB 09:17
PROVIDERS: PCP Internal Medicine; Visit Provider Internal Medicine
DX: Z12.5 Encounter for screening for malignant neoplasm of prostate (principal); E11.65 Type 2 diabetes mellitus with hyperglycemia; E78.00 Pure hypercholesterolemia, unspecified; E83.52 Hypercalcemia
CPT/HCPCS: 36415; 80053; 80061; 82043; 82607; 82746; 83036; 83970; 84153; 84439; 84443; 85025

== ENCOUNTER 2023-01-02 14:02 | Outpatient (AMB) | payer OTHER, SELFPAY ==
--- NOTE | 2023-01-02 14:14 | A.OFFPC_ITS ---
Vital Signs 01/02/23 14:15 Height 5 ft 4 in Weight 137 lb BMI 23.5 BP 124/74 Blood Pressure Location Lt brachial Position Sitting Pulse 102 H Pulse Source Pulse Oximeter Pulse Oximetry (%) 97 Oxygen Delivery Method Room Air Intake Visit Reasons: DM Allergies ibuprofen [IBUPROFEN] Adverse Reaction (Mild, Verified 01/02/23 14:15) UPSET STOMACH naproxen [From NAPROSYN] Adverse Reaction (Unknown, Verified 01/02/23 14:15) STOMACH UPSET Tobacco use date assessed: 09/08/22 Dental Screening Dental Screen Date: 01/02/23 Did you have a dental visit in the last 12 months?: No Did you have a dental problem in the last 6 months where you did not have access to dental care?: No Was dental information given to patient?: No HPI DM HPI Details 62-year-old male smoker with GERD hypercholesterolemia hypertension asthma diabetes mellitus with bilateral hip arthroplasty history coming in for follow-up last seen in August 2022 blood work done in September 2019. now will have surgery february 02, 2023, Dr. Clark [facility] Medical History (Updated 08/12/22 @ 00:01 by Esthela Thomson) Alcohol abuse Asthma Degenerative disc disease, lumbar GERD (gastroesophageal reflux disease) GERD (gastroesophageal reflux disease) Hypercholesterolemia Hypertension Osteoarthritis Tobacco abuse Type 2 diabetes mellitus with hyperglycemia Surgical History History of hand surgery Family History (Updated 01/02/23 @ 14:16 by Yuliya Blanco CMA) Father No problems noted. Mother Lung cancer Maternal Grandmother History of heart attack Maternal Uncle Lung cancer Social History Housing: Apartment Alcohol intake: never Patient Tobacco Use Status: Current everyday Tobacco user Tobacco use type: Cigarette Cigarettes Per Day: 13 e-Cigarette/Vaping Use: Never Used Second Hand Smoke Exposure: Yes service: No Current occupational status: disabled Cognitive needs: No Hearing needs: No Vision needs: Yes Questionnaire PHQ-9 Over the last 2 weeks, how often have you been bothered by any of the following problems? 1. Little interest or pleasure in doing things: not at all 2. Feeling down, depressed, or hopeless: not at all 3. Trouble falling or staying asleep, or sleeping too much: not at all 4. Feeling tired or having little energy: not at all 5. Poor appetite or overeating: not at all 6. Feeling bad about yourself - or that you are a failure or have let yourself or your family down: not at all 7. Trouble concentrating on things, such as reading the newspaper or watching television: not at all 8. Moving or speaking so slowly that other people could have noticed. Or the opposite - being so fidgety or restless that you have been moving around a lot more than usual: not at all 9. Thoughts that you would be better off or of hurting yourself in some way: not at all Total score: 0 Depression Screening Interpretation: Negative Source: Developed by Drs. Choco Alvarez, Cindy Jensen, Luis Mensah and colleagues, with an educational luís from [employer]. Thrive Questionnaire Date Thrive assessed: 01/02/23 I am a: Patient What is your living situation today?: I have a steady place to live Within the past 12 months, did the food you bought not last and you didn't have the money to get more?: Never true Within the past 12 months, did you worry whether your food would run out before you got money to buy more?: Never true Do you have trouble paying for medicines?: No Do you have trouble getting transportation to medical appointments?: No Do you have trouble paying your heating and electricity bill?: No Do you have trouble taking care of your child, family member or friend?: No Do you have trouble with day-to-day activities such as bathing, preparing meals, shopping, managing finances, etc.?: No Are you currently unemployed and looking for a job?: No Are you interested in more education?: No Currently or been in a relationship where the following occur: no concerns reported AUDIT C Alcohol Use Questionnaire (AUDIT-C) 1. How often do you have a drink containing alcohol?: Monthly or less 2. How many drinks containing alcohol do you have on a typical day when you are drinking?: 1 or 2 3. How often do you have six or more drinks on one occasion?: Never Total Score: 1 Score Reviewed/Action Taken: Yes (no action needed. ) JACQUE-7 AMB Questionnaire JACQUE-7 Date JACQUE - 7 assessed: 09/08/22 Source: Developed by Drs. Choco Alvarez, Cindy Jensen, Luis Mensah and colleagues, with an educational luís from [employer]. Physical exam (Primary Care) Vital Signs: Last Vital Signs Pulse 102 H 01/02/23 14:15 BP 124/74 01/02/23 14:15 Pulse Ox 97 01/02/23 14:15 Oxygen Delivery Method Room Air 01/02/23 14:15 BMI result Body Mass Index 23.5 Tobacco/Smoking Status: Tobacco use Status Tobacco use date assessed 09/08/22 01/02/23 14:17 Patient Tobacco Use Status Current everyday Tobacco 01/02/23 14:17 Tobacco use type Cigarette 01/02/23 14:17 e-Cigarette/Vaping Use Never Used 01/02/23 14:17 PHQ-9: PHQ-9 Score PHQ-9: Total score 0 01/02/23 14:27 Depression Screening Interpretation: Negative Thrive Assessment: Date of Thrive Assessment Date Thrive assessed 01/02/23 01/02/23 14:17 Currently or been in a relationship where the following occur: no concerns reported Const General: alert; No acute distress Eyes Conjunctivae: conjunctivae normal Resp Auscultation: clear to auscultation bilaterally Cardio Rate: regular rate Rhythm: regular rhythm GI Inspection: Yes normal to inspection Extrem General: Yes normal to inspection and No edema Results AMB Hemoglobin A1c AMB Hemoglobin A1c 6.3 % Last Edit by Yuliya Blanco CMA on 01/02/23 14 :28 Results Reviewed Results Reviewed: Laboratory Last Values Hgb A1c (Clinic) 6.3 % (4.0-6.0) H 01/02/23 14:17 Assessment and Plan Assessment & Plan (1) Tobacco abuse: Code(s): Z72.0 - Tobacco use Plan: Patient is strongly advised to stop smoking! (2) Type 2 diabetes mellitus with hyperglycemia: Code(s): E11.65 - Type 2 diabetes mellitus with hyperglycemia Qualifiers: Diabetes mellitus longterm insulin use: without longterm use Qualified Code(s): E11.65 - Type 2 diabetes mellitus with hyperglycemia Plan: Decrease the amount of carbohydrate intake, pasta, bread, rice and potatoes are all sugar and that is aside from all the sweet stuff, remember that fruits are good but they are Sweet also. Hemoglobin A1c goal of less than 6.5 patient is on metformin 500 mg twice a day (3) Asthma: Code(s): J45.909 - Unspecified asthma, uncomplicated Qualifiers: Asthma severity: mild Asthma persistence: intermittent Asthma complication type: uncomplicated Qualified Code(s): J45.20 - Mild intermittent asthma, uncomplicated Plan: Continue with inhaler as needed but patient is advised to strongly stop smoking (4) Hypertension: Code(s): I10 - Essential (primary) hypertension Qualifiers: Hypertension type: essential hypertension Qualified Code(s): I10 - Essential (primary) hypertension Plan: Continue with blood pressure medication. Decrease salt intake and exercise patient is taking lisinopril 20 mg once a day metoprolol 25 mg once a day (5) GERD (gastroesophageal reflux disease): Code(s): K21.9 - Gastro-esophageal reflux disease without esophagitis Qualifiers: Esophagitis presence: with esophagitis Esophagitis bleeding: without hemorrhage Qualified Code(s): K21.00 - Gastro-esophageal reflux disease with esophagitis, without bleeding Plan: Avoid the foods that causes that usually spicy foods, tomato products, juices, coffee, soda and foods that your sensitive to. After eating do not lie down, allow 3-4 hours before in lie down. And keep the head of bed above 30 degrees to avoid the acid from going up. (6) Hypercholesterolemia: Code(s): E78.00 - Pure hypercholesterolemia, unspecified Plan: Avoid fried foods, chicken skin, eggs, butter margarine, pastries and meat. Be it pork or beef they have a lot of cholesterol LDL goal of less than 100 patient is on simvastatin 10 mg once a day (7) Degenerative disc disease, lumbar: Comment: August 2018 MRI Code(s): M51.36 - Other intervertebral disc degeneration, lumbar region Plan: Keep active (8) Generalized anxiety disorder: Code(s): F41.1 - Generalized anxiety disorder Plan: Continue with therapy Orders: Orders AMB Hemoglobin A1c Today Z13.9 - Encounter for screening, unspecified Medications: Refilled tramadol 50 mg PO QID PRN 120 tabs 0RF pain M51.36 - Other intervertebral disc degeneration, lumbar region Coding Level of Care Code Est Pt Level 4 (54219) Diagnoses Tobacco abuse Z72.0 Type 2 diabetes mellitus with hyperglycemia E11.65 Diabetes mellitus longterm insulin use: without longterm use Asthma J45.20 Asthma severity: mild Asthma persistence: intermittent Asthma complication type: uncomplicated Hypertension I10 Hypertension type: essential hypertension GERD (gastroesophageal reflux disease) K21.00 Esophagitis presence: with esophagitis Esophagitis bleeding: without hemorrhage Hypercholesterolemia E78.00 Degenerative disc disease, lumbar M51.36 Generalized anxiety disorder F41.1 Additional Codes PHQ-9 - 43433 - PHQ-9 Billing: Y ([id number])
[2023-01-02 14:15] VITALS: BP 124/74; PULSE 102; O2SAT 97; BMI 23.5
== END 2023-01-02 14:40 | disposition home or self-care (01) ==
PROVIDERS: PCP Internal Medicine; Visit Provider Internal Medicine
DX: Z72.0 Tobacco use (principal); E11.65 Type 2 diabetes mellitus with hyperglycemia; J45.20 Mild intermittent asthma, uncomplicated; I10 Essential (primary) hypertension; K21.00 Gastro-esophageal reflux disease with esophagitis, without bleeding; E78.00 Pure hypercholesterolemia, unspecified; M51.36 Other intervertebral disc degeneration, lumbar region; F41.1 Generalized anxiety disorder; Z13.9 Encounter for screening, unspecified
CPT/HCPCS: 83036; 99214

== ENCOUNTER 2023-04-09 12:48 | Outpatient (AMB) | payer OTHER, SELFPAY ==
[2023-04-09 12:55] VITALS: BP 122/88; PULSE 81; O2SAT 95; BMI 23.2
--- NOTE | 2023-04-09 12:55 | A.OFFPC_ITS ---
Vital Signs 04/09/23 12:55 Height 5 ft 4 in Weight 135 lb 0.4 oz BMI 23.2 BP 122/88 Blood Pressure Location Lt brachial Position Sitting Pulse 81 Pulse Source Pulse Oximeter Pulse Oximetry (%) 95 Oxygen Delivery Method Room Air Intake Visit Reasons: 3 month f/u Allergies ibuprofen [IBUPROFEN] Adverse Reaction (Mild, Verified 01/02/23 14:15) UPSET STOMACH naproxen [From NAPROSYN] Adverse Reaction (Unknown, Verified 01/02/23 14:15) STOMACH UPSET Medication List - Last Reconciled 04/09/23 by Grace Edge MD acetaminophen 1,000 mg (2 x 500 mg) PO Q6H PRN albuterol sulfate 90 mcg/actuation (Ventolin HFA) 2 puffs inhalation QID PRN [BEDSIDE COMMODE As directed] blood pressure monitor (Blood Pressure Kit) As directed blood sugar diagnostic (FreeStyle Lite Strips) As directed check the BS QD blood-glucose meter (FreeStyle Lite Meter kit) As directed cane As directed cyclobenzaprine 10 mg PO TID PRN diclofenac sodium 1% (Voltaren Arthritis Pain) 2 grams topical QID [ELECTRIC SCOOTER As directed] famotidine 20 mg PO BEDTIME 90 days fluticasone propionate 110 mcg/actuation (Flovent HFA) 2 puffs PO BID lancets (FreeStyle Lancets) As directed check BS QD lidocaine 5% 1 patch topical DAILY lisinopril 20 mg PO DAILY metformin 500 mg PO BID metoprolol succinate ER 25 mg PO DAILY 30 days multivitamin 1 tab PO DAILY ondansetron 4 mg PO Q8H PRN quetiapine (Seroquel) 100 mg PO BEDTIME simvastatin 10 mg PO BEDTIME 90 days thiamine HCl (vitamin B1) 100 mg (2 x 50 mg) PO DAILY tramadol 50 mg PO QID PRN Tobacco use date assessed: 09/08/22 Dental Screening Dental Screen Date: 04/09/23 Did you have a dental visit in the last 12 months?: No Did you have a dental problem in the last 6 months where you did not have access to dental care?: No HPI 3 month f/u HPI Details 62-year-old male smoker with controlled diabetes mellitus asthma hypertension GERD hypercholesterolemia lumbar degenerative disc disease and generalized anxiety disorder. Coming in for follow-up. Patient was last seen in December 2022. Patient does have tramadol. Patient was recently in the hospital for right knee osteoarthritis February 03 2023 had right total knee arthroplasty done under Dr. Amber BREWER Medical History (Updated 08/12/22 @ 00:01 by Esthela Thomson) GERD (gastroesophageal reflux disease) Osteoarthritis Degenerative disc disease, lumbar Alcohol abuse Tobacco abuse Hypercholesterolemia GERD (gastroesophageal reflux disease) Hypertension Asthma Type 2 diabetes mellitus with hyperglycemia Surgical History History of hand surgery Family History (Updated 01/02/23 @ 14:16 by Yuliya Blanco, JEREMIAH) Father No problems noted. Mother Lung cancer Maternal Grandmother History of heart attack Maternal Uncle Lung cancer Social History Housing: Apartment Alcohol intake: never Patient Tobacco Use Status: Current everyday Tobacco user Tobacco use type: Cigarette Cigarettes Per Day: 13 e-Cigarette/Vaping Use: Never Used Second Hand Smoke Exposure: Yes service: No Current occupational status: disabled Cognitive needs: No Hearing needs: No Vision needs: Yes Questionnaire Thrive Questionnaire Date Thrive assessed: 01/02/23 AUDIT C Alcohol Use Questionnaire (AUDIT-C) 1. How often do you have a drink containing alcohol?: Monthly or less 2. How many drinks containing alcohol do you have on a typical day when you are drinking?: 1 or 2 3. How often do you have six or more drinks on one occasion?: Never Total Score: 1 Score Reviewed/Action Taken: Yes (no action needed. ) JACQUE-7 AMB Questionnaire JACQUE-7 Date JACQUE - 7 assessed: 09/08/22 Source: Developed by Drs. Choco Alvarez, Cindy Jensen, Luis Mensah and colleagues, with an educational luís from [email or web address]. Physical exam (Primary Care) Vital Signs: Last Vital Signs Pulse 81 04/09/23 12:55 BP 122/88 04/09/23 12:55 Pulse Ox 95 04/09/23 12:55 Oxygen Delivery Method Room Air 04/09/23 12:55 BMI result Body Mass Index 23.2 Tobacco/Smoking Status: Tobacco use Status Tobacco use date assessed 09/08/22 04/09/23 13:01 Patient Tobacco Use Status Current everyday Tobacco 04/09/23 13:01 Tobacco use type Cigarette 04/09/23 13:01 e-Cigarette/Vaping Use Never Used 04/09/23 13:01 Thrive Assessment: Date of Thrive Assessment Date Thrive assessed 01/02/23 04/09/23 13:01 Const General: alert; No acute distress Eyes Conjunctivae: conjunctivae normal Resp Auscultation: clear to auscultation bilaterally Cardio Rate: regular rate Rhythm: regular rhythm GI Inspection: Yes normal to inspection Extrem Other: Patient walks with a walker right now limping on the right leg General: Yes normal to inspection and No edema Office Procedures Flu Questionnaire Does the patient have a severe egg allergy?: No Does the patient have severe life threatening allergies?: No Does the patient have a fever or illness today?: No Has the patient ever had Guillain-[place] Syndrome?: No Has the patient ever had any past reaction to a flu shot?: No Results AMB Hemoglobin A1c AMB Hemoglobin A1c 5.9 % Last Edit by LASHAE Soriano on 04/09/23 13:07 Immunizations flu vacc [id number] 6mos up(PF) 60 mcg(15 mcgx4)/0.5 mL IM syringe Performing Provider: Grace Edge MD Performing Location: [facility] Administered by: LASHAE Soriano on 04/09/23 13:07 Dose Route Admin Location Dispensed Lot Number Expiration Date NDC Health Inspector Food 0.5 mL IM Left Deltoid 0.5 mL [id number] 12/16/23 [id number] [employer] VIS Given Date VIS Provided VIS Publication Date 04/09/23 Single Vaccine 21 Eligibility Eligibility Date Funding Source Not VF Eligible 04/09/23 Private Results Reviewed Results Reviewed: Laboratory Last Values Hgb A1c (Clinic) 5.9 % (4.0-6.0) 04/09/23 12:52 Assessment and Plan Assessment & Plan (1) S/P total right hip arthroplasty: Comment: July 2022 Dr. Clark Code(s): Z96.641 - Presence of right artificial hip joint Plan: Continue to follow-up with orthopedics (2) History of arthroplasty of right knee: Comment: 01/2023 Dr. Clark Code(s): Z96.651 - Presence of right artificial knee joint Plan: Continue to follow-up with orthopedics (3) Type 2 diabetes mellitus with hyperglycemia: Code(s): E11.65 - Type 2 diabetes mellitus with hyperglycemia Qualifiers: Diabetes mellitus shelter insulin use: without terminal make up operator use Qualified Code(s): E11.65 - Type 2 diabetes mellitus with hyperglycemia Plan: Decrease the amount of carbohydrate intake, pasta, bread, rice and potatoes are all sugar and that is aside from all the sweet stuff, remember that fruits are good but they are Sweet also. Hemoglobin A1c goal of less than 6.5. Continue with metformin 500 mg twice a day (4) Hypertension: Code(s): I10 - Essential (primary) hypertension Qualifiers: Hypertension type: essential hypertension Qualified Code(s): I10 - Essential (primary) hypertension Plan: Continue with blood pressure medication. Decrease salt intake and exercise patient on metoprolol 25 mg once a day lisinopril 20 mg once a day (5) Hypercholesterolemia: Code(s): E78.00 - Pure hypercholesterolemia, unspecified Plan: September 2022 blood work LDL goal less than 100 and triglyceride of less than 150 patient is on simvastatin 10 mg once a day Avoid fried foods, chicken skin, eggs, butter margarine, pastries and meat. Be it pork or beef they have a lot of cholesterol (6) Tobacco abuse: Code(s): Z72.0 - Tobacco use Plan: Patient is strongly advised to stop smoking (7) Degenerative disc disease, lumbar: Comment: August 2018 MRI Code(s): M51.36 - Other intervertebral disc degeneration, lumbar region Plan: Keep active (8) Asthma: Code(s): J45.909 - Unspecified asthma, uncomplicated Qualifiers: Asthma severity: mild Asthma persistence: intermittent Asthma complication type: uncomplicated Qualified Code(s): J45.20 - Mild intermittent asthma, uncomplicated Plan: Continue with the inhaler as needed and stop smoking! (9) GERD (gastroesophageal reflux disease): Code(s): K21.9 - Gastro-esophageal reflux disease without esophagitis Qualifiers: Esophagitis presence: with esophagitis Esophagitis bleeding: without hemorrhage Qualified Code(s): K21.00 - Gastro-esophageal reflux disease with esophagitis, without bleeding Plan: Stop smoking! Avoid the foods that causes that usually spicy foods, tomato products, juices, coffee, soda and foods that your sensitive to. After eating do not lie down, allow 3-4 hours before in lie down. And keep the head of bed above 30 degrees to avoid the acid from going up. Orders: Orders AMB Hemoglobin A1c Today E11.65 - Type 2 diabetes mellitus with hyperglycemia Influenza [id number] Immunization Today Z23 - Encounter for immunization Complete Blood Count Auto Diff 3 Months E11.65 - Type 2 diabetes mellitus with hyperglycemia Free T4 (Free Thyroxine) 3 Months E11.65 - Type 2 diabetes mellitus with hyperglycemia IRON PROFILE 3 Months E11.65 - Type 2 diabetes mellitus with hyperglycemia Vitamin B12 and Folate 3 Months E11.65 - Type 2 diabetes mellitus with hyperglycemia Comprehensive Met. Panel 3 Months E11.65 - Type 2 diabetes mellitus with hyperglycemia Thyroid Stimulating Hormone 3 Months E11.65 - Type 2 diabetes mellitus with hyperglycemia Ferritin 3 Months E11.65 - Type 2 diabetes mellitus with hyperglycemia Reticulocyte Count 3 Months E11.65 - Type 2 diabetes mellitus with hyperglycemia Hemoglobin A1c 3 Months E11.65 - Type 2 diabetes mellitus with hyperglycemia Lipid Panel 3 Months E11.65 - Type 2 diabetes mellitus with hyperglycemia, E78.00 - Pure hypercholesterolemia, unspecified Medications: New multivitamin 1 tab PO DAILY 90 tabs 1RF E11.65 - Type 2 diabetes mellitus with hyperglycemia Coding Level of Care Code Est Pt Level 4 (72293) Diagnoses S/P total right hip arthroplasty Z96.641 History of arthroplasty of right knee Z96.651 Type 2 diabetes mellitus with hyperglycemia, without long-term current use of insulin E11.65 Diabetes mellitus terminal make up operator insulin use: without shelter use Essential hypertension I10 Hypertension type: essential hypertension Hypercholesterolemia E78.00 Tobacco abuse Z72.0 Degenerative disc disease, lumbar M51.36 Mild intermittent asthma without complication J45.20 Asthma severity: mild Asthma persistence: intermittent Asthma complication type: uncomplicated Gastroesophageal reflux disease without esophagitis K21.00 Esophagitis presence: with esophagitis Esophagitis bleeding: without hemorrhage
== END 2023-04-09 13:46 | disposition home or self-care (01) ==
PROVIDERS: PCP Internal Medicine; Visit Provider Internal Medicine
DX: E11.65 Type 2 diabetes mellitus with hyperglycemia (principal); Z96.641 Presence of right artificial hip joint; Z96.651 Presence of right artificial knee joint; I10 Essential (primary) hypertension; Z23 Encounter for immunization; E78.00 Pure hypercholesterolemia, unspecified; Z72.0 Tobacco use; M51.36 Other intervertebral disc degeneration, lumbar region; J45.20 Mild intermittent asthma, uncomplicated; K21.00 Gastro-esophageal reflux disease with esophagitis, without bleeding; F41.9 Anxiety disorder, unspecified
CPT/HCPCS: 83036; 90471; 90686; 99214

== ENCOUNTER 2023-07-10 14:18 | Outpatient (REF) | payer OTHER, SELFPAY | END 2023-07-10 14:19 | disposition home or self-care (01) | LOC: HO.LAB 14:18 | PROVIDERS: Absent Provider Internal Medicine; PCP Internal Medicine; Visit Provider Nurse Practitioner Family | DX: M25.561 Pain in right knee (principal); Z96.651 Presence of right artificial knee joint | CPT/HCPCS: 99202 ==

== ENCOUNTER 2023-07-10 14:18 | Outpatient (AMB) | payer OTHER, SELFPAY ==
--- NOTE | 2023-07-10 14:20 | A.OFFVIS_ITS ---
Intake Vital Signs 07/10/23 14:27 Height 5 ft 4 in Weight 136 lb BMI 23.3 BP 109/69 Blood Pressure Location Lt brachial Position Sitting Pulse 89 Pulse Source Pulse Oximeter Pulse Oximetry (%) 96 Oxygen Delivery Method Room Air Intake Visit Reasons: Presence of right artificial knee joint/lvm Intake Note: Pain today 03/27 Corporate Sales Trainer Required: No Corporate Sales Trainer Name: - Iram Accompanied by: Spouse Allergies ibuprofen [IBUPROFEN] Adverse Reaction (Mild, Verified 07/10/23 14:30) UPSET STOMACH naproxen [From NAPROSYN] Adverse Reaction (Unknown, Verified 07/10/23 14:30) STOMACH UPSET HPI Presence of right artificial knee joint/lvm HPI Details Patient is a pleasant 62 years old Wallisian speaking male presents today for initial evaluation for right knee pain s/p right TKA [place] 02/01/[address] [place] [facility] [place] Patient is accompanied by his Iram who assists with translation. Pain localized to anterior aspect of right knee with mild swelling in his patella, medial and lateral joint lines. Reports constant burning and tightness sensation in his right knee joint and distal right thigh. Right knee is warm to touch in comparing to right left knee which is cold to touch and no swelling. Patient reports tight sensation in his groin areas bilateral since bilateral hip replacement surgeries in 2021 and 2022. Pain increases with walking, climbing stairs and extension. Knee pain is function and mobility limiting and has been resistant to conservative treatments. Pain also affects his sleep as he is unable to keep his leg straight due to pain. His midline incision is well healed without any skin color changes. Patient has upcoming follow up with Orthopedic provider next month. Patient completed course of physical therapy at [facility] in [place] without any pain relief or function improvement. Patient reports he was on oxycodone 5 mg BID-TID for 3 months since knee surgery and current provider is no longer providing him oxycodone. Patient also tried gabapentin but developed GI upset and notes that it was ineffective. He cannot tolerate NSAIDs due to stomach upset. Ambulates with antalgic gait with limping with the use of walker. Denies any fever, chills, abdominal pain, back pain, numbness, tingling, radiating back pain, weakness, bladder or bowel dysfunction or saddle anesthesia. Patient reports he lost significant amount of weight since hip and knee surgeries over the past year due to pain. His diabetes is well controlled, most recent A1C at 5.9. Location Right knee Duration Chronic pain for 5 months since right TKA 02/02/23 Characteristics of symptom or complaint Tightness, burning, pinching, cramping, squeezing, aching, heavy Aggravating or associated factors Walking, knee extension, climbing stairs, cold weather Relieving factors Sitting, oxycodone, ice pack, knee flexion Treatment PT at [facility], no improvement PFSH Medical History (Updated 07/10/23 @ 14:43 by YADIRA Rincon) GERD (gastroesophageal reflux disease) Osteoarthritis Degenerative disc disease, lumbar Alcohol abuse Tobacco abuse Hypercholesterolemia GERD (gastroesophageal reflux disease) Hypertension Asthma Type 2 diabetes mellitus with hyperglycemia Surgical History (Updated 07/10/23 @ 15:05 by YADIRA Rincon) History of arthroplasty of right knee S/P total right hip arthroplasty S/P total left hip arthroplasty History of hand surgery Family History Father No problems noted. Mother Lung cancer Maternal Grandmother History of heart attack Maternal Uncle Lung cancer Social History Housing: Apartment Alcohol intake: never Patient Tobacco Use Status: Current everyday Tobacco user Tobacco use type: Cigarette Cigarettes Per Day: 13 e-Cigarette/Vaping Use: Never Used Second Hand Smoke Exposure: Yes service: No Current occupational status: disabled Cognitive needs: No Hearing needs: No Vision needs: Yes Review of Systems Const All systems reviewed & are unremarkable except as noted in HPI and below Physical Exam Vital Signs: Last Vital Signs Pulse 89 07/10/23 14:27 BP 109/69 07/10/23 14:27 Pulse Ox 96 07/10/23 14:27 Oxygen Delivery Method Room Air 07/10/23 14:27 BMI result Body Mass Index 23.3 General: Appears afebrile. Alert and oriented. Mood and affect appropriate. Follows and participates in conversation appropriately. Respiratory effort is unlabored. No cough. No nasal discharge. Able to transition from sit to stand unassisted. Ambulates with bilaterally normal heel strike and toe off. Extrem General: Yes capillary refill normal, Yes no clubbing, cyanosis or edema and Yes no calf tenderness Right lower extremity: knee (Increased pain with knee extension. Well healed incision. No instability.) Details: tenderness Location: of the patella, of the medial joint line and of the lateral joint line, swelling (global right knee), crepitus and warmth (anterior aspect of knee ); no ecchymosis and no deformity Results Reviewed Results Reviewed: XR HIP, RIGHT 08/11/22 CLINICAL INFORMATION: Right hip pain status post replacement 1 week ago. COMPARISON: CT pelvis dated 01/25/2020 TECHNIQUE: Single AP view of the pelvis Two views of the right hip. FINDINGS: Bilateral total hip arthroplasty with single acetabular augmentation screws. Components in expected positions, with femoral heads concentrically seated within their acetabular cups. No evidence of hardware failure or complication. Pelvic ring intact. Soft tissues unremarkable. IMPRESSION: Bilateral total hip arthroplasty without evidence of hardware failure or complication. Assessment & Plan Assessment & Plan (1) History of arthroplasty of right knee: Comment: 01/2023 Dr. Clark Code(s): Z96.651 - Presence of right artificial knee joint (2) Right knee pain: Code(s): M25.561 - Pain in right knee Plan Patient with persistent right knee pain s/p TKA 01/2023 Dr. Clark. Concern for swelling and warmth of anterior aspect of right knee and significant pain with extension or sleeping. Xrays ordered. Patient reminded to complete pending labs, including CBC per his PCP orders. I will add CRP and ESR to rule out infection. Patient has upcoming follow up with his Orthopedic provider next month. We discussed peripheral nerve stimulation and genicular nerve cooled RFA procedures as potential treatments if infection is rule out. Informational pamphlets provided in Bruneian and Wallisian for patient and his family. Shorts script for oxycodone and lidocaine patches provided for acute moderate to severe right knee pain. Side effects and precautions reviewed with patient and his . Patient is aware we do not offer continues opioid prescribing program at this time. All questions and concerns have been answered and patient agreed with the plan. For x-ray and lab results and sooner as needed. Orders: Orders XR knee RT 3V Today M25.561 - Pain in right knee, Z96.651 - Presence of right artificial knee joint CRP High Sensitivity Today M25.561 - Pain in right knee, Z96.651 - Presence of right artificial knee joint Erythrocyte Sedimentation Rate Today M25.561 - Pain in right knee, Z96.651 - Presence of right artificial knee joint Medications: New oxycodone Partial Fill upon patient request. 5 mg PO Q8H 10 days PRN 30 tabs 0RF pain M25.561 - Pain in right knee, Z96.651 - Presence of right artificial knee joint lidocaine 5% 1 patch topical DAILY 30 days 30 ea 3RF pain M25.561 - Pain in right knee, Z96.651 - Presence of right artificial knee joint Discontinued cyclobenzaprine Discontinued Reason: Patient no longer taking 10 mg PO TID PRN 14 tabs 0RF muscle spasm Coding Level of Care Code New Pt Level 4 (27130) Diagnoses History of arthroplasty of right knee Z96.651 Right knee pain M25.561
[2023-07-10 14:27] VITALS: BP 109/69; PULSE 89; O2SAT 96; BMI 23.3
== END 2023-07-10 14:55 | disposition home or self-care (01) ==
PROVIDERS: PCP Internal Medicine; Visit Provider Nurse Practitioner Family
DX: Z96.651 Presence of right artificial knee joint (principal); M25.561 Pain in right knee
CPT/HCPCS: 99204

== ENCOUNTER 2023-07-11 10:52 | Outpatient (REF) | payer OTHER, SELFPAY ==
--- NOTE | ~2023-07-11 | XR_ITS ---
EXAMINATION: XR KNEE, RIGHT CLINICAL INFORMATION: Knee prosthesis. COMPARISON: Radiograph right knee 08/25/2013. TECHNIQUE: Three views of the right knee. FINDINGS: Prosthetic components of the total knee arthroplasty are appropriately aligned without periprosthetic fracture or abnormal lucency. No component migration. No joint effusion. XR/XR knee RT 3V IMPRESSION: Appropriate alignment of the right total knee arthroplasty without evidence of complications.
[2023-07-11 11:15] LABS: MANUAL DIFF FLAG NO
[2023-07-11 11:59] LABS: Basophils Absolute Auto 0.1 X10*3/uL (0.0-0.2); Basophils Percent Auto 0.6 % (0-2); Eosinophils Absolute Auto 0.1 X10*3/uL (0.0-0.4); Hematocrit 45.3 % (42.0-52.0); Hemoglobin 15.6 g/dl (14.0-18.0); Imm Gran Abs Auto 0.03 X10*3/uL (0.00-0.03); Imm Gran Pct Auto 0.3 % (0.0-0.4); Immature Retic Fraction 6.1 % (2.3-13.4); Lymphocytes Absolute Auto 2.4 X10*3/uL (1.2-4.9); Lymphocytes Percent Auto 26.7 % (20-40); Mean Corpuscular HGB Conc 34.4 g/dl (31.0-36.0); Mean Corpuscular Hemoglobin 30.2 pg (27.0-33.0); Mean Corpuscular Volume 87.8 fL (80.0-98.0); Monocytes Absolute Auto 0.5 X10*3/uL (0.1-1.2); Monocytes Percent Auto 5.7 % (2-11); Neutrophils Percent Auto 65.7 % (45-73); Platelet Count 258 X10*3/uL (160-400); Red Blood Count 5.16 X10*6/uL (4.60-5.80); Red Cell Distribution Width 15.1 % (11.0-16.0); Retic HGB Equivalent 35.4 pg (30.0-35.0); Reticulocyte Percent 1.4 % (0.5-1.8); White Blood Count 9.1 X10*3/uL (4.8-10.8)
[2023-07-11 12:04] LABS: Estimated Average Glucose 123 mg/dL; Hemoglobin A1c % 5.9 % (<6.0)
[2023-07-11 12:42] LABS: Alanine Aminotransferase 11 U/L (0-40); Albumin Level 4.4 g/dL (3.5-5.0); Alkaline Phosphatase 60 U/L (39-117); Anion Gap 15 (12-20); Aspartate Amino Transferase 12 U/L (5-37); Bilirubin Total 0.3 mg/dL (0.0-1.0); Blood Urea Nitrogen 9 mg/dL (9-16); Calcium 9.7 mg/dL (8.4-10.2); Carbon Dioxide 21 mmol/L (22-29); Chloride 105 mmol/L (96-108); Cholesterol 174 mg/dL (<200); Estimated Glomerular Filt Rate > 60; Glucose Random 102 mg/dL (60-115); HDL Cholesterol 41 mg/dL (>40); Iron 127 mcg/dL (45-160); LDL Cholesterol Calculated 114 mg/dL (<100); Percent Iron Saturation 43 % (15-50); Sodium 137 mmol/L (135-145); Total Iron Binding Capacity 293 mcg/dL (228-428); Total Protein 7.6 g/dL (6.5-8.0); Triglycerides 99 mg/dL (<150); Unsaturated Iron Binding 166 ug/dL
[2023-07-11 13:01] LABS: Ferritin 45 ng/mL (20-250); Thyroid Stimulating Hormone 1.98 uIU/mL (0.32-4.0)
[2023-07-11 13:06] LABS: Folate 9.8 ng/mL (> or = 4.0); Vitamin B12 303 pg/mL (200-900)
== END 2023-07-11 10:53 | disposition home or self-care (01) ==
LOC: HO.LAB 10:52
PROVIDERS: Absent Provider Nurse Practitioner Family; PCP Internal Medicine; Visit Provider Internal Medicine
DX: M25.561 Pain in right knee (principal); E11.65 Type 2 diabetes mellitus with hyperglycemia; E78.00 Pure hypercholesterolemia, unspecified; Z96.651 Presence of right artificial knee joint
CPT/HCPCS: 36415; 73562; 80053; 80061; 82607; 82728; 82746; 83036; 83540; 84439; 84443; 85025; 85045

== ENCOUNTER 2023-07-27 09:41 | Outpatient (AMB) | payer OTHER, SELFPAY ==
[2023-07-27 09:43] VITALS: BP 130/80; PULSE 100; O2SAT 98; BMI 24.4
--- NOTE | 2023-07-27 09:43 | A.OFFPC_ITS ---
Vital Signs 07/27/23 09:43 Height 5 ft 4 in Weight 142 lb BMI 24.4 BP 130/80 Blood Pressure Location Lt brachial Position Sitting Pulse 100 Pulse Source Pulse Oximeter Pulse Oximetry (%) 98 Oxygen Delivery Method Room Air Intake Visit Reasons: LBP, DM Manager Rn Case Required: No Accompanied by: Spouse Allergies ibuprofen [IBUPROFEN] Adverse Reaction (Mild, Verified 07/27/23 09:43) UPSET STOMACH naproxen [From NAPROSYN] Adverse Reaction (Unknown, Verified 07/27/23 09:43) STOMACH UPSET Tobacco use date assessed: 07/27/23 Dental Screening Dental Screen Date: 07/27/23 Did you have a dental visit in the last 12 months?: No Did you have a dental problem in the last 6 months where you did not have access to dental care?: No Was dental information given to patient?: No (no teeth) HPI LBP, DM HPI Details 62-year-old male smoker with a history o f left and right hip arthroplasty right knee arthroplasty lumbar degenerative disc disease controlled diabetes mellitus hypertension GERD hypercholesterolemia asthma coming in for follow-up. Last seen in March 2023. Patient declined colonoscopy. Patient has met with pain management right knee replacement 02/01/2023. [facility] Medical History (Updated 07/10/23 @ 14:43 by YADIRA Rincon) GERD (gastroesophageal reflux disease) Osteoarthritis Degenerative disc disease, lumbar Alcohol abuse Tobacco abuse Hypercholesterolemia GERD (gastroesophageal reflux disease) Hypertension Asthma Type 2 diabetes mellitus with hyperglycemia Surgical History (Updated 07/10/23 @ 15:05 by YADIRA Rincon) History of arthroplasty of right knee S/P total right hip arthroplasty S/P total left hip arthroplasty History of hand surgery Family History Father No problems noted. Mother Lung cancer Maternal Grandmother History of heart attack Maternal Uncle Lung cancer Social History Housing: Apartment Alcohol intake: never Patient Tobacco Use Status: Current everyday Tobacco user Tobacco use type: Cigarette Cigarettes Per Day: 13 e-Cigarette/Vaping Use: Never Used Second Hand Smoke Exposure: Yes service: No Current occupational status: disabled Cognitive needs: No Hearing needs: No Vision needs: Yes Questionnaire PHQ-9 Over the last 2 weeks, how often have you been bothered by any of the following problems? 1. Little interest or pleasure in doing things: not at all 2. Feeling down, depressed, or hopeless: not at all 3. Trouble falling or staying asleep, or sleeping too much: not at all 4. Feeling tired or having little energy: not at all 5. Poor appetite or overeating: not at all 6. Feeling bad about yourself - or that you are a failure or have let yourself or your family down: not at all 7. Trouble concentrating on things, such as reading the newspaper or watching television: not at all 8. Moving or speaking so slowly that other people could have noticed. Or the opposite - being so fidgety or restless that you have been moving around a lot more than usual: not at all 9. Thoughts that you would be better off or of hurting yourself in some way: not at all Total score: 0 Depression Screening Interpretation: Negative Depression Screening Done: Yes 91595 - PHQ-9 Billing: Yes Source: Developed by Drs. Choco Alvarez, Cindy Jensen, Luis Mensah and colleagues, with an educational luís from [employer]. Thrive Questionnaire Date Thrive assessed: 07/27/23 I am a: Patient What is your living situation today?: I have a steady place to live Within the past 12 months, did the food you bought not last and you didn't have the money to get more?: Never true Within the past 12 months, did you worry whether your food would run out before you got money to buy more?: Never true Do you have trouble paying for medicines?: No Do you have trouble getting transportation to medical appointments?: No Do you have trouble paying your heating and electricity bill?: No Do you have trouble taking care of your child, family member or friend?: No Do you have trouble with day-to-day activities such as bathing, preparing meals, shopping, managing finances, etc.?: No Are you currently unemployed and looking for a job?: No Are you interested in more education?: No Please select the resources that you would like help with: None Currently or been in a relationship where the following occur: no concerns reported THRIVE Score: 0 AUDIT C Alcohol Use Questionnaire (AUDIT-C) 1. How often do you have a drink containing alcohol?: Never 3. How often do you have six or more drinks on one occasion?: Never Total Score: 0 JACQUE-7 AMB Questionnaire JACQUE-7 Date JACQUE - 7 assessed: 07/27/23 Feeling nervous, anxious, or on edge: 0 = Not at all Not being able to stop or control worryin = Not at all Worrying too much about different things: 0 = Not at all Trouble relaxin = Not at all Being so restless that it is hard to sit still: 0 = Not at all Becoming easily annoyed or irritable: 0 = Not at all Feeling afraid as if something awful might happen: 0 = Not at all Total JACQUE-7 score (0-4 normal; 5-9 mild; 10-14 moderate; 15-21 severe): 0 Source: Developed by Drs. Choco Alvarez, Cindy Jensen, Luis Mensah and colleagues, with an educational luís from [employer]. JACQUE-7 Assessment Billing JACQUE-7 Assessment Tool: JACQUE-7 Assessment 76996 Physical exam (Primary Care) Vital Signs: Last Vital Signs Pulse 100 07/27/23 09:43 BP 130/80 07/27/23 09:43 Pulse Ox 98 07/27/23 09:43 Oxygen Delivery Method Room Air 07/27/23 09:43 BMI result Body Mass Index 24.4 Tobacco/Smoking Status: Tobacco use Status Tobacco use date assessed 07/27/23 07/27/23 09:51 Patient Tobacco Use Status Current everyday Tobacco 07/27/23 09:43 Tobacco use type Cigarette 07/27/23 09:43 e-Cigarette/Vaping Use Never Used 07/27/23 09:43 PHQ-9: PHQ-9 Score PHQ-9: Total score 0 07/27/23 09:59 Depression Screening Interpretation: Negative Thrive Assessment: Date of Thrive Assessment Date Thrive assessed 07/27/23 07/27/23 09:58 Currently or been in a relationship where the following occur: no concerns reported Const General: alert; No acute distress Eyes Conjunctivae: conjunctivae normal Resp Auscultation: clear to auscultation bilaterally Cardio Rate: regular rate Rhythm: regular rhythm GI Inspection: Yes normal to inspection Extrem General: Yes normal to inspection and No edema Assessment and Plan Assessment & Plan (1) History of arthroplasty of right knee: Comment: 01/2023 Dr. Clark Code(s): Z96.651 - Presence of right artificial knee joint Plan: complain of R knee pain still - follow up with the ortho stop smoking you have (2) S/P total right hip arthroplasty: Comment: July 2022 Dr. Clark Code(s): Z96.641 - Presence of right artificial hip joint (3) S/P total left hip arthroplasty: Comment: May 2022 Code(s): Z96.642 - Presence of left artificial hip joint (4) Degenerative disc disease, lumbar: Comment: August 2018 MRI Code(s): M51.36 - Other intervertebral disc degeneration, lumbar region Plan: Keep active (5) Type 2 diabetes mellitus with hyperglycemia: Code(s): E11.65 - Type 2 diabetes mellitus with hyperglycemia Qualifiers: Diabetes mellitus skilled nursing insulin use: without long lines operator use Qualified Code(s): E11.65 - Type 2 diabetes mellitus with hyperglycemia Plan: Decrease the amount of carbohydrate intake, pasta, bread, rice and potatoes are all sugar and that is aside from all the sweet stuff, remember that fruits are good but they are Sweet also. Hemoglobin A1c goal of less than 6.5. Patient takes metformin 500 mg twice a day (6) Hypertension: Code(s): I10 - Essential (primary) hypertension Qualifiers: Hypertension type: essential hypertension Qualified Code(s): I10 - Essential (primary) hypertension Plan: Continue with blood pressure medication. Decrease salt intake and exercise continue with metoprolol 25 mg once a day lisinopril 20 mg once a day (7) GERD (gastroesophageal reflux disease): Code(s): K21.9 - Gastro-esophageal reflux disease without esophagitis Qualifiers: Esophagitis presence: with esophagitis Esophagitis bleeding: without hemorrhage Qualified Code(s): K21.00 - Gastro-esophageal reflux disease with esophagitis, without bleeding Plan: Avoid the foods that causes that usually spicy foods, tomato products, juices, coffee, soda and foods that your sensitive to. After eating do not lie down, allow 3-4 hours before in lie down. And keep the head of bed above 30 degrees to avoid the acid from going up. (8) Asthma: Code(s): J45.909 - Unspecified asthma, uncomplicated Qualifiers: Asthma severity: mild Asthma persistence: intermittent Asthma complication type: uncomplicated Qualified Code(s): J45.20 - Mild intermittent asthma, uncomplicated Plan: Patient is strongly advised to stop smoking. Continue with the Flovent and rinse mouth after using it (9) Tobacco abuse: Code(s): Z72.0 - Tobacco use Plan: Strongly advised to stop smoking! (10) Hypercholesterolemia: Code(s): E78.00 - Pure hypercholesterolemia, unspecified Plan: Avoid fried foods, chicken skin, eggs, butter margarine, pastries and meat. Be it pork or beef they have a lot of cholesterol LDL goal of less than 100 and triglyceride of less than 150. Patient on simvastatin in noted to be having elevated cholesterol. Orders: Orders Comprehensive Met. Panel 3 Months E78.00 - Pure hypercholesterolemia, unspecified Lipid Panel 3 Months E78.00 - Pure hypercholesterolemia, unspecified Medications: Changed From tramadol 50 mg PO QID PRN 120 tabs 0RF pain M51.36 - Other intervertebral disc degeneration, lumbar region, Z96.651 - Presence of right artificial knee joint To tramadol 50 mg PO BID PRN 60 tabs 0RF pain M51.36 - Other intervertebral disc degeneration, lumbar region, Z96.651 - Presence of right artificial knee joint Refilled metformin 500 mg PO BID 180 tabs 3RF E11.65 - Type 2 diabetes mellitus with hyperglycemia Discontinued oxycodone Partial Fill upon patient request. Discontinued Reason: Patient Completed Course 5 mg PO Q8H PRN 30 tabs 0RF pain 10 days M25.561 - Pain in right knee, Z96.651 - Presence of right artificial knee joint Coding Level of Care Code Est Pt Level 4 (16067) Diagnoses History of arthroplasty of right knee Z96.651 S/P total right hip arthroplasty Z96.641 S/P total left hip arthroplasty Z96.642 Degenerative disc disease, lumbar M51.36 Type 2 diabetes mellitus with hyperglycemia, without long-term current use of insulin E11.65 Diabetes mellitus long lines operator insulin use: without skilled nursing use Essential hypertension I10 Hypertension type: essential hypertension Gastroesophageal reflux disease without esophagitis K21.00 Esophagitis presence: with esophagitis Esophagitis bleeding: without hemorrhage Mild intermittent asthma without complication J45.20 Asthma severity: mild Asthma persistence: intermittent Asthma complication type: uncomplicated Tobacco abuse Z72.0 Hypercholesterolemia E78.00 Additional Codes JACQUE-7 Assessment Billing - JACQUE-7 Assessment Tool: JACQUE-7 Assessment 19735 ([id number])
== END 2023-07-27 10:44 | disposition home or self-care (01) ==
PROVIDERS: PCP Internal Medicine; Visit Provider Internal Medicine
DX: E11.65 Type 2 diabetes mellitus with hyperglycemia (principal); I10 Essential (primary) hypertension; M51.36 Other intervertebral disc degeneration, lumbar region; Z96.651 Presence of right artificial knee joint; Z96.641 Presence of right artificial hip joint; Z96.642 Presence of left artificial hip joint; K21.00 Gastro-esophageal reflux disease with esophagitis, without bleeding; J45.20 Mild intermittent asthma, uncomplicated; Z72.0 Tobacco use; E78.00 Pure hypercholesterolemia, unspecified
CPT/HCPCS: 99214

== ENCOUNTER 2023-08-23 09:10 | Outpatient (REF) | payer OTHER, SELFPAY ==
[2023-08-23 10:25] LABS: Erythrocyte Sedimentation Rate 8 MM/HR (0-15)
[2023-08-24 17:14] LABS: CRP High Sensitivity 1.3 mg/L
== END 2023-08-23 09:11 | disposition home or self-care (01) ==
LOC: HO.LAB 09:10
PROVIDERS: Nurse Practitioner Family; PCP Internal Medicine; Visit Provider Internal Medicine
DX: M25.561 Pain in right knee (principal); Z96.651 Presence of right artificial knee joint
CPT/HCPCS: 36415; 85652; 86141

== ENCOUNTER 2024-03-24 13:15 | Outpatient (AMB) | payer OTHER, SELFPAY ==
--- NOTE | 2024-03-24 13:27 | A.OFFPC_ITS ---
Vital Signs 03/24/24 13:28 Height 5 ft 4 in Weight 59.137 kg BMI 22.4 BP 130/70 Blood Pressure Location Lt brachial Position Sitting Pulse 80 Pulse Source Pulse Oximeter Pulse Oximetry (%) 97 Oxygen Delivery Method Room Air Intake Visit Reasons: 4 Week F/U Intake Note: Patient is here to follow up on DM, HTN, GERD, LDDD, Asthma. Complaint of pain in right shoulder radiating down the arm. Volunteer Manager Required: No Conservation Enforcement Officer: Present Accompanied by: Spouse Allergies ibuprofen [IBUPROFEN] Adverse Reaction (Mild, Verified 03/24/24 13:28) UPSET STOMACH naproxen [From NAPROSYN] Adverse Reaction (Unknown, Verified 03/24/24 13:28) STOMACH UPSET Tobacco use date assessed: 03/24/24 Dental Screening Dental Screen Date: 07/27/23 HPI 4 Week F/U HPI Details 63-year-old male smoker with a history o f right knee arthroplasty right hip arthroplasty left hip arthroplasty diabetes mellitus controlled hypertension GERD asthma and hypercholesterolemia last seen in 08/07/2023. Patient has declined colon test. [facility] Medical History (Updated 03/24/24 @ 13:50 by Grace Edge MD) GERD (gastroesophageal reflux disease) Osteoarthritis Degenerative disc disease, lumbar Alcohol abuse Tobacco abuse Hypercholesterolemia GERD (gastroesophageal reflux disease) Hypertension Asthma Type 2 diabetes mellitus with hyperglycemia Surgical History History of arthroplasty of right knee S/P total right hip arthroplasty S/P total left hip arthroplasty History of hand surgery Family History Father No problems noted. Mother Lung cancer Maternal Grandmother History of heart attack Maternal Uncle Lung cancer Social History Housing: Apartment Alcohol intake: never Patient Tobacco Use Status: Current everyday Tobacco user Tobacco use type: Cigarette Cigarettes Per Day: 13 e-Cigarette/Vaping Use: Never Used Second Hand Smoke Exposure: Yes service: No Current occupational status: disabled Cognitive needs: No Hearing needs: No Vision needs: Yes Questionnaire Thrive Questionnaire Date Thrive assessed: 07/27/23 Are you currently unemployed and looking for a job?: No JACQUE-7 AMB Questionnaire JACQUE-7 Date JACQUE - 7 assessed: 07/27/23 Source: Developed by Drs. Choco Alvarez, Cindy Jensen, Luis Mensah and colleagues, with an educational luís from [employer]. Physical exam (Primary Care) Vital Signs: Last Vital Signs Pulse 80 03/24/24 13:28 BP 130/70 03/24/24 13:28 Pulse Ox 97 03/24/24 13:28 Oxygen Delivery Method Room Air 03/24/24 13:28 BMI result Body Mass Index 22.4 Tobacco/Smoking Status: Tobacco use Status Tobacco use date assessed 03/24/24 03/24/24 13:37 Patient Tobacco Use Status Current everyday Tobacco 03/24/24 13:37 Tobacco use type Cigarette 03/24/24 13:37 e-Cigarette/Vaping Use Never Used 03/24/24 13:37 Thrive Assessment: Date of Thrive Assessment Date Thrive assessed 07/27/23 03/24/24 13:37 Const General: alert; No acute distress Eyes Conjunctivae: conjunctivae normal Resp Auscultation: clear to auscultation bilaterally Cardio Rate: regular rate Rhythm: regular rhythm GI Inspection: Yes normal to inspection Extrem General: Yes normal to inspection and No edema Office Procedures Flu Questionnaire Does the patient have a severe egg allergy?: No Does the patient have severe life threatening allergies?: No Does the patient have a fever or illness today?: No Has the patient ever had Guillain-[place] Syndrome?: No Has the patient ever had any past reaction to a flu shot?: No Results AMB Hemoglobin A1c AMB Hemoglobin A1c 6.2 % Last Edit by LASHAE Moore on 03/24/24 13:39 Immunizations Fluarix Triv [id number] (PF) 45 mcg (15 mcg x 3)/0.5 mL IM syringe Performing Provider: Grace Edge MD [facility] Administered by: Brittany Alvares LPN on 03/24/24 13:56 Dose Route Admin Location Dispensed Lot Number Expiration Date NDC Drum Sander Offbearer 0.5 mL IM Left Deltoid 0.5 mL [id number] 12/15/24 [id number] [email or web address] VIS Given Date VIS Provided VIS Publication Date 03/24/24 Single Vaccine 21 Eligibility Eligibility Date Funding Source Not [facility] Eligible 03/24/24 Private Results Reviewed Results Reviewed: Laboratory Last Values Hgb A1c (Clinic) 6.2 % (4.0-6.0) H 03/24/24 13:26 Coding Level of Care Code Est Pt Level 4 (30832) Diagnoses Type 2 diabetes mellitus with hyperglycemia, without long-term current use of insulin E11.65 Diabetes mellitus buttermaker helper insulin use: without buttermaker helper use Essential hypertension I10 Hypertension type: essential hypertension Hypercholesterolemia E78.00 Tobacco abuse Z72.0 Degenerative disc disease, lumbar M51.36 Generalized anxiety disorder F41.1 Right shoulder pain M25.511 History of arthroplasty of right knee Z96.651 Assessment & Plan Assessment & Plan (1) Type 2 diabetes mellitus with hyperglycemia: Code(s): E11.65 - Type 2 diabetes mellitus with hyperglycemia Category: Medical Qualifiers: Diabetes mellitus long-term insulin use: without long-term use Qualified Code(s): E11.65 - Type 2 diabetes mellitus with hyperglycemia Plan: Decrease the amount of carbohydrate intake, pasta, bread, rice and potatoes are all sugar and that is aside from all the sweet stuff, remember that fruits are good but they are Sweet also. Hemoglobin A1c goal of less than 6.5. Patient is on metformin 500 mg twice a day (2) Hypertension: Code(s): I10 - Essential (primary) hypertension Category: Medical Qualifiers: Hypertension type: essential hypertension Qualified Code(s): I10 - Essential (primary) hypertension Plan: Continue with blood pressure medication. Decrease salt intake and exercise patient takes metoprolol 25 mg once a day lisinopril 20 mg once a day (3) Hypercholesterolemia: Code(s): E78.00 - Pure hypercholesterolemia, unspecified Category: Medical Plan: Avoid fried foods, chicken skin, eggs, butter margarine, pastries and meat. Be it pork or beef they have a lot of cholesterol LDL goal of less than 100 and triglyceride of less than 150 on simvastatin 10 mg will need blood work (4) Tobacco abuse: Code(s): Z72.0 - Tobacco use Category: Medical Plan: Strongly advised to stop smoking (5) Degenerative disc disease, lumbar: Comment: August 2018 MRI Code(s): M51.36 - Other intervertebral disc degeneration, lumbar region Category: Medical Plan: Continue to keep active. (6) Generalized anxiety disorder: Code(s): F41.1 - Generalized anxiety disorder Category: Medical Plan: Continue with present medication (7) Right shoulder pain: Code(s): M25.511 - Pain in right shoulder Category: Medical Plan: will do xray of the R shoulder (8) History of arthroplasty of right knee: Comment: 01/2023 Dr. Clark Code(s): Z96.651 - Presence of right artificial knee joint Category: Surgical Plan: PAtient has an upcoming R knee surgery in [place] 06/2023 Orders: Orders Complete Blood Count Auto Diff Today E11.65 - Type 2 diabetes mellitus with hy perglycemia Creatinine Urine Today E11.65 - Type 2 diabetes mellitus with hyperglycemia Microalbumin, Random (w Creat) Today E11.65 - Type 2 diabetes mellitus with hyperglycemia Prostate Specific Antigen Scr Today E11.65 - Type 2 diabetes mellitus with hyperglycemia UA w Microscopic Today E11.65 - Type 2 diabetes mellitus with hyperglycemia Influenza [id number] Immunization Today Z23 - Encounter for immunization AMB Hemoglobin A1c Today E11.65 - Type 2 diabetes mellitus with hyperglycemia Thyroid Stimulating Hormone Today E11.65 - Type 2 diabetes mellitus with hyperglycemia Vitamin B12 and Folate Today E11.65 - Type 2 diabetes mellitus with hyperglycemia Free T4 (Free Thyroxine) Today E11.65 - Type 2 diabetes mellitus with hyperglycemia XR shoulder RT min 2V Today M25.511 - Pain in right shoulder Medications: Changed From tramadol 50 mg PO BID PRN 60 tabs 0RF pain M51.36 - Other intervertebral disc degeneration, lumbar region, Z96.651 - Presence of right artificial knee joint To tramadol 50 mg PO TID PRN 90 tabs 0RF pain M51.36 - Other intervertebral disc degeneration, lumbar region, Z96.651 - Presence of right artificial knee joint
[2024-03-24 13:28] VITALS: BP 130/70; PULSE 80; O2SAT 97; BMI 22.4
== END 2024-03-24 14:15 | disposition home or self-care (01) ==
PROVIDERS: PCP Internal Medicine; Visit Provider Internal Medicine
DX: E11.65 Type 2 diabetes mellitus with hyperglycemia (principal); I10 Essential (primary) hypertension; E78.00 Pure hypercholesterolemia, unspecified; Z72.0 Tobacco use; M51.36 Other intervertebral disc degeneration, lumbar region; F41.1 Generalized anxiety disorder; M25.511 Pain in right shoulder; Z96.651 Presence of right artificial knee joint; Z23 Encounter for immunization

== ENCOUNTER → 2024-03-24 13:15 | Outpatient (BNVA) | payer OTHER, SELFPAY | PROVIDERS: PCP Internal Medicine; Visit Provider Internal Medicine | DX: Z23 Encounter for immunization (principal); E11.65 Type 2 diabetes mellitus with hyperglycemia; I10 Essential (primary) hypertension; E78.00 Pure hypercholesterolemia, unspecified; M51.369 Other intervertebral disc degeneration, lumbar region without mention of lumbar back pain or lower extremity pain; F41.1 Generalized anxiety disorder; M25.511 Pain in right shoulder; Z96.651 Presence of right artificial knee joint; Z72.0 Tobacco use; Z71.6 Tobacco abuse counseling | CPT/HCPCS: 83036; 90471; 90656; 99212 ==

== ENCOUNTER 2024-07-04 09:38 | Outpatient (REF) | payer OTHER, SELFPAY ==
--- NOTE | ~2024-07-04 | XR_ITS ---
EXAMINATION: XR SHOULDER 2 OR MORE VIEWS RIGHT HISTORY: M25.511 - Pain in right shoulder COMPARISON: There are no prior studies available for comparison. FINDINGS: Four views of the right shoulder are submitted. Osseous mineralization is normal. There is no fracture or dislocation. The glenohumeral joint is maintained. There is mild to moderate osteoarthritis of the AC joint with joint space narrowing and osteophyte formation. The soft tissues are unremarkable. XR/XR shoulder RT min 2V IMPRESSION: Mild to moderate osteoarthritis of the AC joint. Electronically signed by: Choco Sibley MD 07/07/2024 02:43 PM JUAN HENSON
[2024-07-04 10:08] LABS: MANUAL DIFF FLAG NO
[2024-07-04 10:35] LABS: Appearance Urine Clear; Color Urine Yellow; Glucose Urine UA Negative (Negative); Leukocyte Esterase Urine Negative (Negative); Nitrite Urine Negative (Negative); PH 5.5 (5.0-9.0); Urine Blood Negative (Negative); Urine Ketones Negative (Negative); Urine Protein Negative (Neg-Trace)
[2024-07-04 10:37] LABS: Bacteria Urine None Seen (None Seen); Hyaline Casts Urine 0-2 /LPF (0-2); RBC Urine 0-2 /HPF (0-2); Squamous Epithelial Cell Urine 0-2 /HPF (0-2); WBC Urine 0-5 /HPF (0-5)
[2024-07-04 10:48] LABS: Basophils Absolute Auto 0.1 X10*3/uL (0.0-0.2); Basophils Percent Auto 0.6 % (0-2); Eosinophils Absolute Auto 0.3 X10*3/uL (0.0-0.4); Eosinophils Percent Auto 2.9 % (0-4); Hematocrit 42.4 % (42.0-52.0); Hemoglobin 14.7 g/dl (14.0-18.0); Imm Gran Abs Auto 0.03 X10*3/uL (0.00-0.03); Imm Gran Pct Auto 0.3 % (0.0-0.4); Lymphocytes Absolute Auto 2.6 X10*3/uL (1.2-4.9); Lymphocytes Percent Auto 30.1 % (20-40); Mean Corpuscular HGB Conc 34.7 g/dl (31.0-36.0); Mean Corpuscular Volume 89.5 fL (80.0-98.0); Mean Platelet Volume 11.6 fL (9.4-12.4); Monocytes Absolute Auto 0.6 X10*3/uL (0.1-1.2); Monocytes Percent Auto 6.4 % (2-11); Neutrophils Absolute Auto 5.1 x10*3/uL (2.0-8.3); Neutrophils Percent Auto 59.7 % (45-73); Platelet Count 211 X10*3/uL (160-400); Red Blood Count 4.74 X10*6/uL (4.60-5.80); Red Cell Distribution Width 13.7 % (11.0-16.0); White Blood Count 8.6 X10*3/uL (4.8-10.8)
[2024-07-04 11:02] LABS: Creatinine Urine 138.59 mg/dL
[2024-07-04 11:17] LABS: Alanine Aminotransferase 19 U/L (0-40); Albumin Level 4.1 g/dL (3.5-5.0); Alkaline Phosphatase 70 U/L (39-117); Anion Gap 11 (12-20); Aspartate Amino Transferase 19 U/L (5-37); Bilirubin Total 0.3 mg/dL (0.0-1.0); Blood Urea Nitrogen 14 mg/dL (9-16); Calcium 9.4 mg/dL (8.4-10.2); Carbon Dioxide 25 mmol/L (22-29); Chloride 108 mmol/L (96-108); Cholesterol 158 mg/dL (<200); Estimated Glomerular Filt Rate > 60; Glucose Random 108 mg/dL (60-115); HDL Cholesterol 42 mg/dL (>40); LDL Cholesterol Calculated 96 mg/dL (<100); Potassium 4.1 mmol/L (3.3-5.1); Sodium 140 mmol/L (135-145); Total Protein 7.4 g/dL (6.5-8.0); Triglycerides 103 mg/dL (<150)
[2024-07-04 11:20] LABS: Free T4 (Free Thyroxine) 1.04 ng/dL (0.71-1.85); Thyroid Stimulating Hormone 1.23 uIU/mL (0.32-4.0)
[2024-07-04 11:32] LABS: Folate 16.2 ng/mL (> or = 4.0); Vitamin B12 405 pg/mL (200-900)
== END 2024-07-04 09:39 | disposition home or self-care (01) ==
LOC: HO.LAB 09:38
PROVIDERS: PCP Internal Medicine; Visit Provider Internal Medicine
DX: M25.511 Pain in right shoulder (principal); E11.65 Type 2 diabetes mellitus with hyperglycemia; E78.00 Pure hypercholesterolemia, unspecified
CPT/HCPCS: 36415; 73030; 80053; 80061; 81001; 82043; 82570; 82607; 82746; 84153; 84439; 84443; 85025

== ENCOUNTER → 2024-07-04 10:15 | Outpatient (BNV) | payer OTHER, SELFPAY | PROVIDERS: PCP Internal Medicine; Visit Provider Radiology Diagnostic Radiology | DX: M25.511 Pain in right shoulder (principal) | CPT/HCPCS: 73030 ==

== ENCOUNTER → 2024-07-11 10:05 | Outpatient (BNVA) | payer OTHER, SELFPAY | PROVIDERS: PCP Internal Medicine; Visit Provider Internal Medicine | DX: E11.65 Type 2 diabetes mellitus with hyperglycemia (principal); I10 Essential (primary) hypertension; E78.00 Pure hypercholesterolemia, unspecified; K21.00 Gastro-esophageal reflux disease with esophagitis, without bleeding; J45.20 Mild intermittent asthma, uncomplicated; F41.1 Generalized anxiety disorder; M19.011 Primary osteoarthritis, right shoulder; Z72.0 Tobacco use; M51.369 Other intervertebral disc degeneration, lumbar region without mention of lumbar back pain or lower extremity pain | CPT/HCPCS: 83036; 99212 ==

== ENCOUNTER 2024-10-13 11:04 | Outpatient (AMB) | payer OTHER, SELFPAY ==
[2024-10-13 11:12] VITALS: BP 112/72; PULSE 67; O2SAT 97; BMI 22.5
--- NOTE | 2024-10-13 11:12 | A.OFFPC_ITS ---
Vital Signs 10/13/24 11:12 Height 5 ft 4 in Weight 131 lb BMI 22.5 BP 112/72 Blood Pressure Location Lt brachial Position Sitting Pulse 67 Pulse Source Pulse Oximeter Pulse Oximetry (%) 97 Oxygen Delivery Method Room Air Intake Visit Reasons: DM Intake Note: Requesting referral to [facility] due to shoulder pain (R) Allergies ibuprofen [IBUPROFEN] Adverse Reaction (Mild, Verified 10/13/24 11:12) UPSET STOMACH naproxen [From NAPROSYN] Adverse Reaction (Unknown, Verified 10/13/24 11:12) STOMACH UPSET Tobacco use date assessed: 07/11/24 Dental Screening Dental Screen Date: 07/11/24 [facility] Medical History (Updated 10/13/24 @ 11:43 by Grace Edge MD) GERD (gastroesophageal reflux disease) Osteoarthritis Degenerative disc disease, lumbar Alcohol abuse Tobacco abuse Hypercholesterolemia GERD (gastroesophageal reflux disease) Hypertension Asthma Type 2 diabetes mellitus with hyperglycemia Surgical History History of arthroplasty of right knee S/P total right hip arthroplasty S/P total left hip arthroplasty History of hand surgery Family History Father No problems noted. Mother Lung cancer Maternal Grandmother History of heart attack Maternal Uncle Lung cancer Social History (Updated 07/11/24 @ 10:16 by LASHAE Moore) Housing: Apartment Alcohol intake: never Patient Tobacco Use Status: Current everyday Tobacco user Tobacco use type: Cigarette Cigarette Packs Per Day: 0.5 Cigarettes Per Day: 10 e-Cigarette/Vaping Use: Never Used Second Hand Smoke Exposure: Yes service: No Current occupational status: disabled Cognitive needs: Yes (Cane) Hearing needs: No Vision needs: Yes Questionnaire Thrive Questionnaire Date Thrive assessed: 07/11/24 JACQUE-7 AMB Questionnaire JACQUE-7 Date JACQUE - 7 assessed: 07/11/24 Source: Developed by Drs. Choco Alvarez, Cindy Jensen, Luis Mensah and colleagues, with an educational luís from [employer] Physical exam (Primary Care) Vital Signs: Last Vital Signs Pulse 67 10/13/24 11:12 BP 112/72 10/13/24 11:12 Pulse Ox 97 10/13/24 11:12 Oxygen Delivery Method Room Air 10/13/24 11:12 BMI result Body Mass Index 22.5 Tobacco/Smoking Status: Tobacco use Status Tobacco use date assessed 07/11/24 10/13/24 11:13 Patient Tobacco Use Status Current everyday Tobacco 10/13/24 11:13 Tobacco use type Cigarette 10/13/24 11:13 e-Cigarette/Vaping Use Never Used 10/13/24 11:13 Thrive Assessment: Date of Thrive Assessment Date Thrive assessed 07/11/24 10/13/24 11:13 Const General: alert; No acute distress Eyes Conjunctivae: conjunctivae normal Resp Auscultation: clear to auscultation bilaterally Cardio Rate: regular rate Rhythm: regular rhythm GI Inspection: Yes normal to inspection Extrem General: Yes normal to inspection and No edema Results AMB Hemoglobin A1c AMB Hemoglobin A1c 6.4 % Last Edit by Yuliya Blanco CMA on 10/13/24 11 :37 AMB Hemoglobin A1c previously reported as 6.7 Yuliya Blanco 10/13/24 11:37 Results Reviewed Results Reviewed: Laboratory Last Values Hgb A1c (Clinic) 6.4 % (4.0-6.0) H 10/13/24 11:35 Coding Level of Care Code Est Pt Level 4 (90927) Complex EM visit Add On G2211 Diagnoses Tobacco abuse Z72.0 Type 2 diabetes mellitus with hyperglycemia, without long-term current use of insulin E11.65 Diabetes mellitus senior care insulin use: without senior care use Essential hypertension I10 Hypertension type: essential hypertension Hypercholesterolemia E78.00 Mild intermittent asthma without complication J45.20 Asthma complication type: uncomplicated Asthma persistence: intermittent Asthma severity: mild Gastroesophageal reflux disease without esophagitis K21.00 Esophagitis bleeding: without hemorrhage Esophagitis presence: with esophagitis Degenerative disc disease, lumbar M51.36 Primary osteoarthritis, right shoulder M19.011 Assessment & Plan Assessment & Plan (1) Tobacco abuse: Code(s): Z72.0 - Tobacco use Category: Medical Plan: Patient is strongly advised to stop smoking summation (2) Type 2 diabetes mellitus with hyperglycemia: Comment: [facility] Code(s): E11.65 - Type 2 diabetes mellitus with hyperglycemia Category: Medical Qualifiers: Diabetes mellitus senior care insulin use: without human resources temp use Qualified Code(s): E11.65 - Type 2 diabetes mellitus with hyperglycemia Plan: Decrease the amount of carbohydrate intake, pasta, bread, rice and potatoes are all sugar and that is aside from all the sweet stuff, remember that fruits are good but they are Sweet also. Hemoglobin A1c goal of less than 6.5. The patient on metformin 500 mg twice a day (3) Hypertension: Code(s): I10 - Essential (primary) hypertension Category: Medical Qualifiers: Hypertension type: essential hypertension Qualified Code(s): I10 - Essential (primary) hypertension Plan: Continue with blood pressure medication. Decrease salt intake and exercise metoprolol 25 mg once a day lisinopril 20 mg once a day (4) Hypercholesterolemia: Code(s): E78.00 - Pure hypercholesterolemia, unspecified Category: Medical Plan: Avoid fried foods, chicken skin, eggs, butter margarine, pastries and meat. Be it pork or beef they have a lot of cholesterol June 2024 last blood work and LDL goal of less than 100 and triglyceride of less than 150 (5) Asthma: Code(s): J45.909 - Unspecified asthma, uncomplicated Category: Medical Qualifiers: Asthma complication type: uncomplicated Asthma persistence: intermittent Asthma severity: mild Qualified Code(s): J45.20 - Mild intermittent asthma, uncomplicated Plan: Continuing with albuterol inhaler (6) GERD (gastroesophageal reflux disease): Code(s): K21.9 - Gastro-esophageal reflux disease without esophagitis Category: Medical Qualifiers: Esophagitis bleeding: without hemorrhage Esophagitis presence: with esophagitis Qualified Code(s): K21.00 - Gastro-esophageal reflux disease with esophagitis, without bleeding Plan: Avoid the foods that causes that usually spicy foods, tomato products, juices, coffee, soda and foods that your sensitive to. After eating do not lie down, allow 3-4 hours before in lie down. And keep the head of bed above 30 degrees to avoid the acid from going up. (7) Degenerative disc disease, lumbar: Comment: August 2018 MRI Code(s): M51.36 - Other intervertebral disc degeneration, lumbar region Category: Medical Plan: Patient is advised to continue being active (8) Primary osteoarthritis, right shoulder: Code(s): M19.011 - Primary osteoarthritis, right shoulder Category: Medical Plan: Continue to be active Plan History of Present Illness The patient is a 64-year-old male presenting for a follow-up of his chronic medical conditions including type 2 diabetes mellitus, asthma, hypertension, GERD, hypercholesterolemia, osteoarthritis, and chronic low back pain. His type 2 diabetes is well-controlled on metformin with the latest A1c recorded at 6.4. Long-standing smoking persists from an early age with recent changes indicating reduced frequency to one pack every two days. The patient continues to deal with asthma controlled through the albuterol inhaler but reports limited improvement possibly due to continued smoking, affecting his lung function. For anxiety, he is on citalopram but no mention of recent evaluation for efficacy. His hypertension is regulated on metoprolol and lisinopril with reportedly good control. Meanwhile, his osteoarthritis and low back pain hinder daily activities, despite encouragement to stay physically active. His lipid profile, with LDL managed under 100 abreu, shows effective control although he persists in refusing a colonoscopy, citing no current full chest evaluation despite prior imagery. Health Maintenance - Smoking cessation advised repeatedly. - Hemoglobin A1c target set to maintain control under 6.5. - Lipid management with an LDL goal of less than 100 mg/dL. - Advising regular physical activity for overall health and arthritis management. - Colonoscopy declined previously; ongoing discussions to explore alternatives. - Referral for lung imaging recommended to assess potential smoking-related complications. - Anxiety management with citalopram; further evaluation implied for mental health support. - Blood pressure target under control with current medications in place. Social History - Tobacco use: Smokes one pack every two days, started at age 9. - Physical activity: Patient remains active per his capacity. - Lifestyle: Managing anxiety with prescribed medication; continued attempts to reduce smoking. Review of Systems - Psychiatric: Reports anxiety. - Respiratory: Reports asthma; history of smoking. - Musculoskeletal: Reports arthritis in the right shoulder and knee, chronic low back pain. - Endocrine: Denies any uncontrolled hyperglycemic symptoms; diabetes managed. - Gastrointestinal: Reports history of GERD; manages symptoms through activity. Physical Exam - Respiratory- Diminished sounds likely related to smoking, noted inability to distinguish breath sounds clearly. Results - Labs: Hemoglobin A1c 6.4% (done on July 04, 2024), LDL 96 mg/dL. - Diagnostics: Previous imaging for lung health related to smoking history anticipated but not recent findings. Plan 1. 5, while encouraging the patient on regular cholesterol checks to keep LDL within optimal ranges. Asthma control depends critically on smoking cessation despite continued symptoms and inhaler use. Blood pressure control will follow the regimen with metoprolol and lisinopril supporting cardiovascular stability. Further evaluation of chronic musculoskeletal pain remains under lifestyle advisories like physical activity to reduce discomfort through increased circulation and flexibility. Lung scans are imperative due to severe prolonged smoking and the implications for respiratory distress. The importance of early intervention in colon cancer screening is continuously reiterated to address preventative health avenues effectively.: Patient was informed and verbally consented to the use of an ambient scribe for clinic note documentation during this visit. Discussion Notes I addressed the importance of smoking cessation, specifically related to decreased lung function and the potential progression to further health complications. The management plan was outlined, focusing on continued active lifestyle recommendations for arthritis pain relief and diabetes control goals with current medication adherence highlighted. Discussions included recurring preventive screening campaigns, such as colorectal and lung cancer via colonoscopy and chest imaging, to mitigate risk factors attributable to his history. Patient Instructions - Continue taking metformin as directed. - Use the albuterol inhaler as needed for asthma. - Take blood pressure medications regularly. - Adhere to current cholesterol management plan. - Engage in regular physical activities as tolerated. - Reduce smoking to protect lung health; consider cessation programs. - Schedule follow-up appointments as recommended and attend health screenings. - Monitor for any worsening symptoms or new developments. Orders: Orders AMB Hemoglobin A1c Today Z13.9 - Encounter for screening, unspecified Referrals Lung Cancer Screening Referral Z72.0 - Tobacco use Medications: Refilled multivitamin with folic acid 400 mcg (Daily-David (with folic acid)) 1 tab PO DAILY 90 tabs 1RF
--- OUTSIDE RECORDS SUMMARY | 2024-10-13 13:21 | XMS_ITS | Clinical Summary ---
Author Organization [facility] Address [address] [place] [address] Care Team Providers Care Senior Paralegal Name Role Phone Grace Edge Primary Care Provider [phone] Allergies No known active allergies Medications Ventolin HFA 90 mcg/actuation inhaler INHALE 2 PUFFS 4 TIMES A DAY NEEDED FOR WHEEZING 03/11/2024 Active buPROPion XL (WELLBUTRIN XL) 300 mg tablet SMARTSI Tablet(s) By Mouth Every Morning 05/05/2024 Active lisinopriL (PRINIVIL,ZESTR IL) 20 mg tablet SMARTSI Tablet(s) By Mouth Daily 06/08/2024 Active metFORMIN (GLUCOPHAGE) 500 mg tablet SMARTSI Tablet(s) By Mouth Twice Daily 11/19/2023 Active Daily-David, with folic acid, tablet SMARTSI Tablet(s) By Mouth Daily 01/02/2024 Active prazosin (MINIPRESS) 1 mg capsule SMARTSI Capsule(s) By Mouth Every Evening 06/20/2024 Active QUEtiapine (SEROquel) 50 mg tablet SMARTSI Tablet(s) By Mouth Twice Daily PRN 05/05/2024 Active simvastatin (ZOCOR) 10 mg tablet SMARTSI Tablet(s) By Mouth Every Night 05/31/2024 Active traMADoL (ULTRAM) 50 mg tablet SMARTSI Tablet(s) By Mouth 3 Times Daily PRN 06/21/2024 Active Encounters Date Type Department Care Team Description 07/16/2024 2:45 PM EST Office Visit [facility] [address] [place] [address] Roland Wasserman MD 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, initial encounter (Primary Dx) 07/16/2024 2:41 PM EST - 07/16/2024 11:59 PM EST Hospital Encounter [facility] [address] [place] [address] Roland Wasserman MD Right hip pain Discharge Disposition: Home or Self Care () 07/16/2024 2:14 PM EST - 07/16/2024 2:40 PM EST Hospital Encounter [facility] [address] [place] [address] Roland Wasserman MD Right knee pain, unspecified chronicity Discharge Disposition: Home or Self Care () 07/16/2024 2:14 PM EST - 07/16/2024 2:40 PM EST Hospital Encounter [facility] [address] [place] [address] Roland Wasserman MD Right knee pain, unspecified chronicity Discharge Disposition: Home or Self Care () 07/16/2024 Orders Only [facility] - External Imaging [address] [place] [address] Radiology, External 07/16/2024 Orders Only [facility] - External Imaging [address] [place] [id number] Radiology, External from Last 3 Months Family History Relation Name Status Comments Father Mother Social History Tobacco Use Types Packs/Day Years Used Date Smoking Tobacco: Every Day Cigarettes Smokeless Tobacco: Never Tobacco Cessation:Ready to Q uit: Not Asked; Counseling Given: Not Answered Alcohol Use Standard Drinks/Week Comments Never 0 (1 standard drink = 0.6 oz pur e alcohol) Sex and Gender Information Value Date Recorded Sex Assigned at Male 07/16/2024 3:52 PM EST Legal Sex Male 11:58 AM EDT Gender Identity Not on file Sexual Orientation Not on file Last Filed Vital Signs Vital Sign Reading Time Taken Comments Blood Pressure - - Pulse - - Temperature - - Respiratory Rate - - Oxygen Saturation - - Inhaled Oxygen Concentration - - Weight 61.7 kg (136 lb) 07/16/2024 2:49 PM EST Height 162.6 cm (5' 4 ) 07/16/2024 2:49 PM EST Body Mass Index 23.34 07/16/2024 2:49 PM EST Plan of Treatment Health Maintenance Due Date Last Done Comments Cologuard 1961 Colon Cancer Screening 1961 Colonoscopy 1961 FOBT / Fit Test 1961 HIV Screening 1961 Hepatitis C Screening 1961 Sigmoidoscopy 1961 Pneumococcal Vaccine: 50+ Ye ars (1 of 2 - PCV) 1980 DTaP,Tdap,and Td Vaccines (1 - Tdap) 10/13/1983 CT Lung Cancer Screening (Baseline) 10/13/2011 Zoster Vaccines (1 of 2) 10/13/2011 COVID-19 Vaccine (1 - 2023-2 5 season) 2024 Alcohol/Substance Use Screening 06/18/2024 Depression Screening and Follow-Up 06/18/2024 Social Drivers of Health Sonia ual Screening 06/18/2024 Influenza Vaccine (Season Ended) 2025 RSV Vaccine (60+ years old a nd patients) (1 - 1-dose 75+ series) 2036 Hepatitis B Vaccines Aged Out No long er eligible based on patient's age to complete this topic Procedures * Due to [place] state law, this organization might not be sharing negative HIV tests. 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 * Sedimentation rate, automated (07/16/2024 3:50 PM EST) Sed Rate 18 <20 mm/Hr mm/Hr 07/16/2024 4:59 PM EST [facility] Blood Structure of peripheral vein / Unknown Venipuncture / Unknown 07/16/2024 3:50 PM EST 07/16/2024 4:40 PM EST us Roland Wasserman MD LAB BLOOD ORDERABLES Final Result Performing Organization Address [facility] Co de Phone Number [facility] [address] [place] [id number], * C-reactive protein (07/16/2024 3:50 PM EST) C Reactive Protein <3.0 <=9.9 mg/L 07/16/2024 5:23 PM EST [facility] Blood Structure of peripheral vein / Unknown Venipuncture / Unknown 07/16/2024 3:50 PM EST 07/16/2024 4:40 PM EST Roland Wasserman MD LAB BLOOD ORDERABLES Final Result Performing Organization Address [facility] Co de Phone Number [facility] [address] [place] [id number], [place] * XR Knee Right 4+ Views (07/16/2024 2:50 PM EST) Anatomical Region Laterality Modality Lower Extremities, Knee Right Computed Radiography 07/16/2024 2:55 PM EST Impressions 07/16/2024 2:56 PM EST FINDINGS/IMPRESSION: Right knee: Prior right total knee arthroplasty. ??Nonspecific minimal periprosthetic lucency along the femoral and tibial prosthetic components. ??No radiographic evidence of periprosthetic fracture.. No radiographic evidence of acute fracture or dislocation. Small joint effusion. Single frontal projection of the left knee demonstrates mild tibiofemoral osteoarthritis. ??Vascular atherosclerotic calcifications. If this radiology report contains a blank impression section, it is an incomplete radiology report. ??Please contact the interpreting radiologist or applicable radiology division as soon as possible to obtain the completed interpretation. ? Workstation ID: [id number] Narrative 07/16/2024 2:56 PM EST COMPARISON: There are no prior studies available for comparison at this time. Resulting Agency Comment [id number] Procedure Note Andrew Wilcox MD - 07/16/2024 COMPARISON: There are no prior studies available for comparison at thistime. IMPRESSION: FINDINGS/IMPRESSION: Right knee: Prior right total knee arthroplasty. Nonspecific minimalperiprosthetic lucency along the femoral and tibial prosthetic components.No radiographic evidence of periprosthetic fracture.. No radiographicevidence of acute fracture or dislocation. Small joint effusion. Single frontal projection of the left knee demonstrates mild tibiofemoralosteoarthritis. Vascular atherosclerotic calcifications. If this radiology report contains a blank impression section, it is anincomplete radiology report. Please contact the interpreting radiologistor applicable radiology division as soon as possible to obtain thecompleted interpretation. Workstation ID: [id number] us Roland Wasserman MD IMG XR PROCEDURES Final Res ult * XR Knee AP/PA Bilateral Standing (07/16/2024 2:49 PM EST) Anatomical Region Laterality Modality Lower Extremities, Knee Bilateral Computed Radiography 07/16/2024 2:55 PM EST Impressions 07/16/2024 2:56 PM EST FINDINGS/IMPRESSION: Right knee: Prior right total knee arthroplasty. ??Nonspecific minimal periprosthetic lucency along the femoral and tibial prosthetic components. ??No radiographic evidence of periprosthetic fracture.. No radiographic evidence of acute fracture or dislocation. Small joint effusion. Single frontal projection of the left knee demonstrates mild tibiofemoral osteoarthritis. ??Vascular atherosclerotic calcifications. If this radiology report contains a blank impression section, it is an incomplete radiology report. ??Please contact the interpreting radiologist or applicable radiology division as soon as possible to obtain the completed interpretation. ? Workstation ID: [id number] Narrative 07/16/2024 2:56 PM EST COMPARISON: There are no prior studies available for comparison at this time. Resulting Agency Comment [id number] Procedure Note Andrew Wilcox MD - 07/16/2024 COMPARISON: There are no prior studies available for comparison at thistime. IMPRESSION: FINDINGS/IMPRESSION: Right knee: Prior right total knee arthroplasty. Nonspecific minimalperiprosthetic lucency along the femoral and tibial prosthetic components.No radiographic evidence of periprosthetic fracture.. No radiographicevidence of acute fracture or dislocation. Small joint effusion. Single frontal projection of the left knee demonstrates mild tibiofemoralosteoarthritis. Vascular atherosclerotic calcifications. If this radiology report contains a blank impression section, it is anincomplete radiology report. Please contact the interpreting radiologistor applicable radiology division as soon as possible to obtain thecompleted interpretation. Workstation ID: [id number] us Roland Wasserman MD IMG XR PROCEDURES Final Res ult * XR Hip Right 2 Views And 1 View Pelvis (07/16/2024 2:48 PM EST) Anatomical Region Laterality Modality Body, Pelvis, Hip Right Computed Radio graphy 07/16/2024 2:57 PM EST Impressions 07/16/2024 2:58 PM EST Prior bilateral total hip arthroplasties. ??No radiographic evidence of periprosthetic fracture or loosening. ??Degenerative changes of the pubis symphysis and sacroiliac joints. ??The sacrum is obscured by overlying soft tissue structures. If this radiology report contains a blank impression section, it is an incomplete radiology report. ??Please contact the interpreting radiologist or applicable radiology division as soon as possible to obtain the completed interpretation. ? Workstation ID: [id number] Narrative 07/16/2024 2:58 PM EST COMPARISON: There are no prior studies available for comparison at this time. FINDINGS AND Resulting Agency Comment [id number] Procedure Note Andrew Wilcox MD - 07/16/2024 COMPARISON: There are no prior studies available for comparison at thistime. FINDINGS AND IMPRESSION: Prior bilateral total hip arthroplasties. No radiographic evidence ofperiprosthetic fracture or loosening. Degenerative changes of the pubissymphysis and sacroiliac joints. The sacrum is obscured by overlying softtissue structures. If this radiology report contains a blank impression section, it is anincomplete radiology report. Please contact the interpreting radiologistor applicable radiology division as soon as possible to obtain thecompleted interpretation. Workstation ID: [id number] Roland Wasserman MD IMG XR PROCEDURES Final Res ult from Last 3 Months Insurance [facility] MEDICAID Care Teams Senior Paralegal Relationship Specialty Start Date End Date Grace Edge [address] [place] [address] PCP - General Internal Medicine 03/04/24
--- OUTSIDE RECORDS SUMMARY | 2024-10-13 13:21 | XMS_ITS | Referral Summary ---
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 [address] [place] [address] Roland Wasserman MD Right hip pain Discharge Disposition: Home or Self Care () 07/16/2024 2:14 PM EST - 07/16/2024 2:40 PM EST Hospital Encounter [facility] [address] [place] [address] Roland Wasserman MD Right knee pain, unspecified chronicity Discharge Disposition: Home or Self Care () 07/16/2024 2:14 PM EST - 07/16/2024 2:40 PM EST Hospital Encounter [facility] [address] [place] [address] Roland Wasserman MD Right knee pain, unspecified chronicity Discharge Disposition: Home or Self Care () 07/16/2024 2:45 PM EST Office Visit [facility] [address] [place] [address] Roland Wasserman MD 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, initial encounter (Primary Dx) from Last 3 Months Allergies No known active allergies Medications Ventolin [...] Mouth 3 Times Daily PRN 06/21/2024 Active Social History Tobacco Use Types Packs/Day Years [...] 07/16/2024 2:49 PM EST Plan of Treatment Not on file Procedures * Due to [place] [employer] law, this organization might not be sharing [...] Last 3 Months Results * Due to [place] state law, this organization might not be sharing negative HIV tests. * Sedimentation rate, automated (07/16/2024 3:50 PM EST) Sed Rate 18 <20 mm/Hr mm/Hr 07/16/2024 4:59 PM EST [facility] Blood Structure of peripheral vein / Unknown Venipuncture / Unknown 07/16/2024 3:50 PM EST 07/16/2024 4:40 PM EST us Roland Wasserman MD LAB BLOOD ORDERABLES Final Result [facility] [address] [place] [address], * C-reactive protein (07/16/2024 3:50 PM EST) C Reactive Protein <3.0 <=9.9 mg/L 07/16/2024 5:23 PM EST [facility] Blood Structure of peripheral vein / Unknown Venipuncture / Unknown 07/16/2024 3:50 PM EST 07/16/2024 4:40 PM EST us Roland Wasserman MD LAB BLOOD ORDERABLES Final Result [facility] [address] [place] [address], [place] * XR Knee Right 4+ Views [...] obtain the completed interpretation. ? Workstation ID: [id number] Narrative 07/16/2024 2:56 PM EST COMPARISON: There are no prior studies available for comparison at this time. Resulting Agency Comment [id number] Procedure Note Andrew Wilcox MD - 07/16/2024 [...] possible to obtain thecompleted interpretation. Workstation ID: [id number] us Roland Wasserman MD IMG XR PROCEDURES [...] obtain the completed interpretation. ? Workstation ID: [id number] Narrative 07/16/2024 2:56 PM EST COMPARISON: There are no prior studies available for comparison at this time. Resulting Agency Comment [id number] Procedure Note Andrew Wilcox MD - 07/16/2024 [...] possible to obtain thecompleted interpretation. Workstation ID: [id number] us Roland Wasserman MD IMG XR PROCEDURES [...] obtain the completed interpretation. ? Workstation ID: [id number] Narrative 07/16/2024 2:58 PM EST COMPARISON: There are no prior studies available for comparison at this time. FINDINGS AND Resulting Agency Comment [id number] Procedure Note Andrew Wilcox MD - 07/16/2024 [...] possible to obtain thecompleted interpretation. Workstation ID: [id number] us Roland Wasserman MD IMG XR PROCEDURES Final Res ult from Last 3 Months Insurance [employer] Care Teams Service Vehicle Operator Relationship Specialty Start Date End Date Grace Edge [address] [place] [address] [place] [id number] PCP - General Internal Medicine 03/04/24
== END 2024-10-13 11:55 | disposition home or self-care (01) ==
LOC: HO.HMCH 11:05
PROVIDERS: PCP Internal Medicine; Visit Provider Internal Medicine
DX: Z72.0 Tobacco use (principal); E11.65 Type 2 diabetes mellitus with hyperglycemia; I10 Essential (primary) hypertension; E78.00 Pure hypercholesterolemia, unspecified; J45.20 Mild intermittent asthma, uncomplicated; K21.00 Gastro-esophageal reflux disease with esophagitis, without bleeding; M51.369 Other intervertebral disc degeneration, lumbar region without mention of lumbar back pain or lower extremity pain; M19.011 Primary osteoarthritis, right shoulder; Z13.9 Encounter for screening, unspecified

== ENCOUNTER → 2024-10-13 11:04 | Outpatient (BNVA) | payer OTHER, SELFPAY | PROVIDERS: PCP Internal Medicine; Visit Provider Internal Medicine | DX: E11.65 Type 2 diabetes mellitus with hyperglycemia (principal); I10 Essential (primary) hypertension; E78.00 Pure hypercholesterolemia, unspecified; J45.20 Mild intermittent asthma, uncomplicated; K21.00 Gastro-esophageal reflux disease with esophagitis, without bleeding; M51.369 Other intervertebral disc degeneration, lumbar region without mention of lumbar back pain or lower extremity pain; M19.011 Primary osteoarthritis, right shoulder; Z72.0 Tobacco use; Z79.84 Long term (current) use of oral hypoglycemic drugs; Z79.899 Other long term (current) drug therapy | CPT/HCPCS: 83036; 99212 ==

== ENCOUNTER 2025-02-03 09:05 | Outpatient (AMB) | payer OTHER, SELFPAY ==
[2025-02-03 09:13] VITALS: BP 122/62; PULSE 71; O2SAT 96; BMI 22.0
--- NOTE | 2025-02-03 09:13 | MHC.PC.OV ---
Vital Signs 02/03/25 09:13 Height 5 ft 4 in Weight 128 lb BMI 22.0 BP 122/62 Blood Pressure Location Lt brachial Position Sitting Pulse 71 Pulse Source Pulse Oximeter Pulse Oximetry (%) 96 Oxygen Delivery Method Room Air Intake Visit Reasons: DM Allergies ibuprofen (IBUPROFEN) Adverse Reaction (Mild, Verified 02/03/25 09:13) UPSET STOMACH naproxen (From NAPROSYN) Adverse Reaction (Unknown, Verified 02/03/25 09:13) STOMACH UPSET Tobacco use date assessed: 07/11/24 Dental Screening Dental Screen Date: 07/11/24 [facility] Medical History (Updated 02/03/25 @ 09:30 by Grace Edge MD) GERD (gastroesophageal reflux disease) Osteoarthritis Degenerative disc disease, lumbar Alcohol abuse Tobacco abuse Hypercholesterolemia GERD (gastroesophageal reflux disease) Hypertension Asthma Type 2 diabetes mellitus with hyperglycemia Surgical History History of arthroplasty of right knee S/P total right hip arthroplasty S/P total left hip arthroplasty History of hand surgery Family History Father No problems noted. Mother Lung cancer Maternal Grandmother History of heart attack Maternal Uncle Lung cancer Social History (Updated 07/11/24 @ 10:16 by LASHAE Moore) Housing: Apartment Alcohol intake: never Patient Tobacco Use Status: Current everyday Tobacco user Tobacco use type: Cigarette Cigarette Packs Per Day: 0.5 Cigarettes Per Day: 10 e-Cigarette/Vaping Use: Never Used Second Hand Smoke Exposure: Yes service: No Current occupational status: disabled Cognitive needs: Yes (Cane) Hearing needs: No Vision needs: Yes Questionnaire PHQ-9 Over the last 2 weeks, how often have you been bothered by any of the following problems? 1. Little interest or pleasure in doing things: several days 2. Feeling down, depressed, or hopeless: several days 3. Trouble falling or staying asleep, or sleeping too much: not at all 4. Feeling tired or having little energy: several days 5. Poor appetite or overeating: several days 6. Feeling bad about yourself - or that you are a failure or have let yourself or your family down: not at all 7. Trouble concentrating on things, such as reading the newspaper or watching television: not at all 8. Moving or speaking so slowly that other people could have noticed. Or the opposite - being so fidgety or restless that you have been moving around a lot more than usual: not at all 9. Thoughts that you would be better off or of hurting yourself in some way: not at all Total score: 4 Depression Screening Interpretation: Positive Depression Screening Done: Yes Source: Developed by Drs. Choco Alvarez, Cindy Jensen, Luis Mensah and colleagues, with an educational luís from [employer] Thrive Questionnaire Date Thrive assessed: 07/11/24 I am a: Patient What is your living situation today?: I have a steady place to live Within the past 12 months, did the food you bought not last and you didn't have the money to get more?: Never true Within the past 12 months, did you worry whether your food would run out before you got money to buy more?: Never true Do you have trouble paying for medicines?: No Do you have trouble getting transportation to medical appointments?: No Do you have trouble paying your heating and electricity bill?: No Do you have trouble taking care of your child, family member or friend?: No Do you have trouble with day-to-day activities such as bathing, preparing meals, shopping, managing finances, etc.?: No Are you currently unemployed and looking for a job?: No Are you interested in more education?: No Please select the resources that you would like help with: None Currently or been in a relationship where the following occur: No concerns reported THRIVE Score: 0 AUDIT C Alcohol Use Questionnaire (AUDIT-C) 1. How often do you have a drink containing alcohol?: Never 3. How often do you have six or more drinks on one occasion?: Never Total Score: 0 JACQUE-7 AMB Questionnaire JACQUE-7 Date JACQUE - 7 assessed: 07/11/24 Feeling nervous, anxious, or on edge: 0 = Not at all Not being able to stop or control worryin = Several days Worrying too much about different things: 1 = Several days Trouble relaxin = Several days Being so restless that it is hard to sit still: 1 = Several days Becoming easily annoyed or irritable: 0 = Not at all Feeling afraid as if something awful might happen: 0 = Not at all Total JACQUE-7 score (0-4 normal; 5-9 mild; 10-14 moderate; 15-21 severe): 4 Source: Developed by Drs. Choco Alvarez, Cindy Jensen, Luis Mensah and colleagues, with an educational luís from [employer] Physical exam (Primary Care) Vital Signs: Last Vital Signs Pulse 71 02/03/25 09:13 BP 122/62 02/03/25 09:13 Pulse Ox 96 02/03/25 09:13 Oxygen Delivery Method Room Air 02/03/25 09:13 BMI result Body Mass Index 22.0 Tobacco/Smoking Status: Tobacco use Status Tobacco use date assessed 07/11/24 02/03/25 09:14 Patient Tobacco Use Status Current everyday Tobacco 02/03/25 09:14 Tobacco use type Cigarette 02/03/25 09:14 e-Cigarette/Vaping Use Never Used 02/03/25 09:14 PHQ-9: PHQ-9 Score PHQ-9: Total score 4 02/03/25 09:24 Depression Screening Interpretation: Positive Thrive Assessment: Date of Thrive Assessment Date Thrive assessed 07/11/24 02/03/25 09:14 Currently or been in a relationship where the following occur: No concerns reported Const General: alert; No acute distress Eyes Conjunctivae: conjunctivae normal Resp Auscultation: clear to auscultation bilaterally Cardio Rate: regular rate Rhythm: regular rhythm GI Inspection: Yes normal to inspection Extrem General: Yes normal to inspection and No edema Results AMB Hemoglobin A1c AMB Hemoglobin A1c 6.1 % Last Edit by Yuliya Blanco CMA on 02/03/25 09:25 Results Reviewed Results Reviewed: Laboratory Last Values Hgb A1c (Clinic) 6.1 % (4.0-6.0) H 02/03/25 09:14 Coding Level of Care Code Est Pt Level 4 (60264) Complex EM visit Add On G2211 Diagnoses Type 2 diabetes mellitus with hyperglycemia, without long-term current use of insulin E11.65 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: 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 Hypercholesterolemia E78.00 Essential hypertension I10 Hypertension type: essential hypertension Gastroesophageal reflux disease without esophagitis K21.00 Esophagitis bleeding: without hemorrhage Esophagitis presence: with esophagitis Degenerative disc disease, lumbar M51.36 Osteoarthritis M19.90 Cognitive change R41.89 Tobacco abuse Z72.0 Assessment & Plan Assessment & Plan (1) Type 2 diabetes mellitus with hyperglycemia: Comment: [facility] Code(s): E11.65 - Type 2 diabetes mellitus with hyperglycemia Category: Medical Qualifiers: Diabetes mellitus retirement insulin use: 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 Qualified Code(s): E11.65 - Type 2 diabetes mellitus with hyperglycemia Plan: Decrease the amount of carbohydrate intake, pasta, bread, rice and potatoes are all sugar and that is aside from all the sweet stuff, remember that fruits are good but they are Sweet also. Hemoglobin A1c goal of less than 6.5. Patient is on metformin 500 mg twice a day (2) Hypercholesterolemia: Code(s): E78.00 - Pure hypercholesterolemia, unspecified Category: Medical Plan: Avoid fried foods, chicken skin, eggs, butter margarine, pastries and meat. Be it pork or beef they have a lot of cholesterol June 2024 last blood work LDL goal of less than 100 and triglyceride of less than 150 patient is taking simvastatin 10 mg at bedtime (3) Hypertension: Code(s): I10 - Essential (primary) hypertension Category: Medical Qualifiers: Hypertension type: essential hypertension Qualified Code(s): I10 - Essential (primary) hypertension Plan: Continue with blood pressure medication. Decrease salt intake and exercise on 20 mg of lisinopril once a day (4) GERD (gastroesophageal reflux disease): Code(s): K21.9 - Gastro-esophageal reflux disease without esophagitis Category: Medical Qualifiers: Esophagitis bleeding: without hemorrhage Esophagitis presence: with esophagitis Qualified Code(s): K21.00 - Gastro-esophageal reflux disease with esophagitis, without bleeding Plan: Avoid the foods that causes that usually spicy foods, tomato products, juices, coffee, soda and foods that your sensitive to. After eating do not lie down, allow 3-4 hours before in lie down. And keep the head of bed above 30 degrees to avoid the acid from going up. (5) Degenerative disc disease, lumbar: Comment: August 2018 MRI Code(s): M51.36 - Other intervertebral disc degeneration, lumbar region Category: Medical Plan: On tramadol for pain keep active maintain normal weight (6) Osteoarthritis: Code(s): M19.90 - Unspecified osteoarthritis, unspecified site Category: Medical Plan: Keep active (7) Cognitive change: Code(s): R41.89 - Other symptoms and signs involving cognitive functions and awareness Category: Medical (8) Tobacco abuse: Code(s): Z72.0 - Tobacco use Category: Medical Plan: Strongly advised to stop smoking!!! Plan History of Present Illness The patient is a 64-year-old male presenting for a follow-up visit. The patient has a history of diabetes mellitus, managed with metformin 500 mg twice daily, with a target hemoglobin A1c of less than 6.5%. His last A1c was 6.1%, indicating good control. The patient has asthma and reports using an albuterol inhaler three to four times a day due to shortness of breath, which suggests poor control of his asthma. He is prescribed a new inhaler to use regularly to stabilize his lung function. The patient has hypertension, managed with lisinopril 20 mg daily, and his blood pressure is reported to be well-controlled. The patient has hypercholesterolemia, with an LDL goal of less than 100 mg/dL, and is taking simvastatin 10 mg at bedtime. His last LDL was 96 mg/dL, indicating good control. The patient has a history of degenerative disc disease and arthritis, with a history of bilateral hip arthroplasty. He is advised to keep active and maintain a normal weight. The patient has generalized anxiety disorder and is a smoker, although he reports smoking less now. Health Maintenance - Blood pressure management with lisinopril 20 mg daily - Cholesterol management with simvastatin 10 mg at bedtime - Diabetes management with metformin 500 mg twice daily - Smoking cessation efforts ongoing Social History - Smoking: Patient is a smoker, currently smoking less than before Review of Systems - Respiratory: Reports dyspnea, uses albuterol inhaler three to four times daily - Gastrointestinal: Denies nausea, vomiting, constipation, diarrhea, or dysuria - Neurological: Reports occasional forgetfulness, denies serious cognitive issues Physical Exam - Neurological: Able to squeeze fingers and shrug shoulders without difficulty - Cognitive: Able to remember three items and perform simple arithmetic Results - Labs: Hemoglobin A1c 6.1%, LDL 96 mg/dL, normal blood count, normal electrolytes, normal renal and liver function, no proteinuria Plan The patient will continue with metformin 500 mg twice daily to manage diabetes, with a target hemoglobin A1c of less than 6.5%. A new inhaler will be prescribed to stabilize lung function, and the patient is advised to use albuterol only as needed. Blood pressure management will continue with lisinopril 20 mg daily, and cholesterol management with simvastatin 10 mg at bedtime, aiming for an LDL goal of less than 100 mg/dL. The patient is encouraged to maintain a normal weight and stay active to manage degenerative disc disease and arthritis. A referral to neurology will be made to address concerns about forgetfulness, and a CAT scan of the head will be scheduled. Smoking cessation efforts will continue, and the patient is advised to reduce smoking further. Patient was informed and verbally consented to the use of an ambient scribe for clinic note documentation during this visit. Discussion Notes I discussed with the patient the importance of managing diabetes with metformin and maintaining a target A1c of less than 6.5%. We talked about the need for a new inhaler to stabilize lung function and the importance of using albuterol only as needed. I emphasized the continuation of lisinopril for blood pressure control and simvastatin for cholesterol management, with specific goals for LDL levels. We also discussed the need for a CAT scan and a neurology referral to address forgetfulness. I advised the patient to continue efforts to quit smoking and to maintain an active lifestyle to manage degenerative disc disease and arthritis. Patient Instructions - Continue taking metformin 500 mg twice daily for diabetes management. - Use the new inhaler as prescribed to stabilize lung function, and use albuterol only as needed. - Take lisinopril 20 mg daily for blood pressure control. - Take simvastatin 10 mg at bedtime for cholesterol management. - Maintain a normal weight and stay active to manage arthritis and degenerative disc disease. - Continue efforts to quit smoking. - Follow up with neurology as scheduled and complete the CAT scan as advised. MMSE hard to do due to the patient's speaking [place]. Was not able to give the orientation to date and memory of the words 06/20 Orders: Orders Comprehensive Met. Panel Today R41.89 - Other symptoms and signs involving cognitive functions and awareness Lipid Panel Today E78.00 - Pure hypercholesterolemia, unspecified, R41.89 - Other symptoms and signs involving cognitive functions and awareness Vitamin B12 and Folate Today R41.89 - Other symptoms and signs involving cognitive functions and awareness Syphilis Screen Today R41.89 - Other symptoms and signs involving cognitive functions and awareness CT head/brain wo IV con Today R41.89 - Other symptoms and signs involving cognitive functions and awareness AMB Hemoglobin A1c Today Z13.9 - Encounter for screening, unspecified Complete Blood Count Auto Diff Today R41.89 - Other symptoms and signs involving cognitive functions and awareness Thyroid Stimulating Hormone Today R41.89 - Other symptoms and signs involving cognitive functions and awareness UA CC w/rflx Micro + Cult Today R30.0 - Dysuria, R41.89 - Other symptoms and signs involving cognitive functions and awareness Prostate Specific Antigen Scr Today R41.89 - Other symptoms and signs involving cognitive functions and awareness Free T4 (Free Thyroxine) Today R41.89 - Other symptoms and signs involving cognitive functions and awareness Ferritin Today R41.89 - Other symptoms and signs involving cognitive functions and awareness Referrals Neurology Referral R41.89 - Other symptoms and signs involving cognitive functions and awareness Medications: New budesonide-formoterol 160-4.5 mcg/actuation (Symbicort) 2 puffs inhalation BID 10.2 grams 1RF J45.20 - Mild intermittent asthma, uncomplicated Refilled multivitamin with folic acid 400 mcg (Daily-David (with folic acid)) 1 tab PO DAILY 90 tabs 1RF R41.89 - Other symptoms and signs involving cognitive functions and awareness
--- OUTSIDE RECORDS SUMMARY | 2025-02-03 10:01 | XMS_ITS | Clinical Summary ---
Author Organization [facility] Address [address] [place] [address] Care Team Providers Care Master Control Technician Name Role Phone Grace Edge Primary Care Provider [phone] Allergies No known active allergies Medications Ventolin [...] Mouth 3 Times Daily PRN 06/21/2024 Active Active Problems No known active problems Encounters Date Type Department Care Team Description 12/08/2024 1:00 PM EDT Office Visit [address] [address] Sim Mendez MD Neck pain (Primary Dx); Chronic right shoulder pain 11/26/2024 Orders Only [address] [address] Sim Mendez MD Right shoulder pain, unspecified chronicity (Primary Dx) from Last 3 Months Family History Relation [...] Sex Male 11:58 AM EDT Gender Identity Male 11/30/2024 10:55 AM EDT Sexual Orientation Straight 11/30/2024 10 :55 AM EDT Last Filed Vital Signs Vital Sign Reading Time Taken Comments Blood Pressure - - Pulse - - Temperature - - Respiratory Rate - - Oxygen Saturation - - Inhaled Oxygen Concentration - - Weight 59.4 kg (131 lb) 12/08/2024 1:10 PM EDT Height 162.6 cm (5' 4 ) 07/16/2024 2:49 PM EST Body Mass Index 22.49 07/16/2024 2:49 PM EST Plan of Treatment [...] Health Sonia ual Screening 06/18/2024 Influenza Vaccine (#1) 2025 RSV Vaccine (60+ years old a nd patients) (1 - 1-dose 75+ series) 2036 Hepatitis B Vaccines Aged Out No long er eligible based on patient's age to complete this topic Procedures * Due to [place] [employer] law, this organization might not be sharing negative HIV tests. Procedure Name Priority Date/Time Associated Diagnosis Comments XR CERVICAL SPINE 4 OR 5 VIEWS INCLUDING OBLIQUES Routine 12/08/2024 1:50 PM EDT Neck pain XR SHOULDER 2+ VW RIGHT Routine 12/08/2024 1:03 PM EDT Right shoulder pain, unspecified chronicity from Last 3 Months Results * Due to [place] [employer] law, this organization might not be sharing negative HIV tests. * XR Cervical Spine 4 or 5 Views Including Obliques (12/08/2024 1:50 PM EDT) Anatomical Region Laterality Modality Spine, C-spine Computed Radiogr aphy 12/08/2024 5:15 PM EDT Impressions 12/08/2024 5:17 PM EDT Right shoulder: No acute fracture or dislocation. Joints are congruent. Mild glenohumeral and acromioclavicular degenerative arthropathy. No erosive changes. Small dystrophic calcifications adjacent to the greater and lesser tuberosities can be seen with calcific tendinosis. Cervical spine: Stature the vertebral bodies is maintained. There is no evidence of significant listhesis. There is moderate to severe multilevel degenerative disc disease most prominent at C5-6. Bilateral mid and lower cervical uncovertebral and facet degenerative arthropathy with evidence of neuroforaminal narrowing most prominent at C5-6 bilaterally. If this radiology report contains a blank impression section, it is an incomplete radiology report. Please contact the interpreting radiologist or applicable radiology division as soon as possible to obtain the completed interpretation. Workstation ID: [id number] Narrative 12/08/2024 5:17 PM EDT COMPARISON: There are no prior studies available for comparison at this time. FINDINGS AND Resulting Agency Comment [id number] Procedure Note Mark Blake, DO - 12/08/2024 COMPARISON: There are no prior studies available for comparison at thistime. FINDINGS AND IMPRESSION: Right shoulder: No acute fracture or dislocation. Joints are congruent.Mild glenohumeral and acromioclavicular degenerative arthropathy. Noerosive changes. Small dystrophic calcifications adjacent to the greaterand lesser tuberosities can be seen with calcific tendinosis. Cervical spine: Stature the vertebral bodies is maintained. There is noevidence of significant listhesis. There is moderate to severe multileveldegenerative disc disease most prominent at C5-6. Bilateral mid and lowercervical uncovertebral and facet degenerative arthropathy with evidence ofneuroforaminal narrowing most prominent at C5-6 bilaterally. If this radiology report contains a blank impression section, it is anincomplete radiology report. Please contact the interpreting radiologistor applicable radiology division as soon as possible to obtain thecompleted interpretation. Workstation ID: [id number] Sim Mendez MD IMG XR PROCEDURES Final Resu lt * XR Shoulder 2+ vw Right (12/08/2024 1:03 PM EDT) Anatomical Region Laterality Modality Upper Extremities, Shoulder Right Comp uted Radiography 12/08/2024 5:15 PM EDT Impressions 12/08/2024 5:17 PM EDT Right shoulder: No acute fracture or dislocation. Joints are congruent. Mild glenohumeral and acromioclavicular degenerative arthropathy. No erosive changes. Small dystrophic calcifications adjacent to the greater and lesser tuberosities can be seen with calcific tendinosis. Cervical spine: Stature the vertebral bodies is maintained. There is no evidence of significant listhesis. There is moderate to severe multilevel degenerative disc disease most prominent at C5-6. Bilateral mid and lower cervical uncovertebral and facet degenerative arthropathy with evidence of neuroforaminal narrowing most prominent at C5-6 bilaterally. If this radiology report contains a blank impression section, it is an incomplete radiology report. Please contact the interpreting radiologist or applicable radiology division as soon as possible to obtain the completed interpretation. Workstation ID: [id number] Narrative 12/08/2024 5:17 PM EDT COMPARISON: There are no prior studies available for comparison at this time. FINDINGS AND Resulting Agency Comment [id number] Procedure Note Mark Blake, DO - 12/08/2024 COMPARISON: There are no prior studies available for comparison at thistime. FINDINGS AND IMPRESSION: Right shoulder: No acute fracture or dislocation. Joints are congruent.Mild glenohumeral and acromioclavicular degenerative arthropathy. Noerosive changes. Small dystrophic calcifications adjacent to the greaterand lesser tuberosities can be seen with calcific tendinosis. Cervical spine: Stature the vertebral bodies is maintained. There is noevidence of significant listhesis. There is moderate to severe multileveldegenerative disc disease most prominent at C5-6. Bilateral mid and lowercervical uncovertebral and facet degenerative arthropathy with evidence ofneuroforaminal narrowing most prominent at C5-6 bilaterally. If this radiology report contains a blank impression section, it is anincomplete radiology report. Please contact the interpreting radiologistor applicable radiology division as soon as possible to obtain thecompleted interpretation. Workstation ID: [id number] Sim Mendez MD IMG XR PROCEDURES Final Resu lt from Last 3 Months Insurance [facility] MEDICAID Care Teams Master Control Technician Relationship Specialty Start Date End Date Grace Edge [address] [place] [address] dr Angie Adams, BREANN [address] PCP - General Internal Medicine 03/04/24
--- OUTSIDE RECORDS SUMMARY | 2025-02-03 10:01 | XMS_ITS | Clinical Summary ---
Author Organization [facility] Address [address] [place] [address] Care Team Providers Care Dowel Sticker Operator Name Role Phone Amaury Guardado MD Primary Care Provider [phone] Allergies Active Allergy Reactions Criticality Noted Date Comments Ibuprofen Other (see comments) 10/14/2020 Naproxen Other (see comments) 10/14/2020 Medications acamprosate (CAMPRAL) 333 MG EC tablet Take 1 tablet by mouth 3 (three) times a day Active albuterol HFA (Ventolin HFA) 108 (90 Base) MCG/ACT inhaler Comments: Patient Notes: INHALE 2 PUFFS INTO THE LUNGS EVERY 4 TO 6 HOURS NEEDED FOR COUGHING Active benztropine (COGENTIN) 1 MG tablet Take 1 tablet by mouth at bed time Active cyanocobalamin (VITAMIN B-12) 100 MCG tablet Take 1 tablet by mouth 1 (one) time each day Active fluticasone HFA (Flovent HFA) 110 MCG/ACT inhaler as directed Active gabapentin (NEURONTIN) 300 MG capsule Take 1 capsule by mouth 1 (one) time each day Active hydrOXYzine (ATARAX) 50 MG tablet Take 1 tablet by mouth 1 (one) time each day Active lisinopril (PRINIVIL,ZESTRI L) 20 MG tablet Take 1 tablet by mouth 1 (one) time each day Active omeprazole (PriLOSEC) [address] capsule Take 1 capsule by mouth 1 (one) time each day Active QUEtiapine (SEROquel) 100 MG tablet Take 1 tablet by mouth at bed time Active risperiDONE (RisperDAL) 2 MG tablet Take 1 tablet by mouth 1 (one) time each day Active simvastatin (ZOCOR) 5 MG tablet Take 1 tablet by mouth 1 (one) time each day Active thiamine (VITAMIN B-1) 50 MG tablet Take 1 tablet by mouth 1 (one) time each day Active traMADol (ULTRAM) 50 MG tablet Take 1 tablet by mouth Active cyanocobalamin (VITAMIN B-12) 100 MCG tablet TAKE 1 TABLET BY MOUTH EVERY DAY 1 Active buPROPion XL (WELLBUTRIN XL) 300 MG 24 hr tablet 1 Active doxepin (SINEquan) 10 MG capsule 1 Active nicotine polacrilex (NICORETTE) 2 MG gum CHEW 1 PIECE TO INSIDE OF MOUTH EVERY TWO HOURS NEEDED 1 Active Chantix Continuing Month Chaitanya 1 MG tablet 1 Active sucralfate (CARAFATE) 1 g tablet 1 Active simvastatin (ZOCOR) 10 MG tablet 1 Active ondansetron ODT (ZOFRAN-ODT) 4 MG dispersible tablet 1 Active metoprolol succinate XL (TOPROL XL) 25 MG 24 hr tablet 1 Active metFORMIN (GLUCOPHAGE) 500 MG tablet 1 Active famotidine (PEPCID) 20 MG tablet 1 Active dexamethasone (DECADRON) 6 MG tablet 1 Active cyanocobalamin (VITAMIN B-12) 100 MCG tablet 1 Active Active Problems Problem Noted Date Diagnosed Date Depressive disorder 10/14/2020 Esophageal reflux 10/14/2020 Essential hypertension 10/07/2020 Hypertensive heart and renal disease with (congestive) heart failure 10/07/2020 Family History Medical History Relation Comments Cancer Mother lung Dementia Mother Diabetes Mother Heart disease Mother Hypertension Mother Relation Status Comments Father Mother Social History Tobacco Use Types Packs/Day Years Used Date Smoking Tobacco: Every Day Alcohol Use Standard Drinks/Week Comments Yes 0 (1 standard drink = 0.6 oz pure alcohol) Alcoholic Drinks/day: Occasional social drink Sex and Gender Information Value Date Recorded Sex Assigned at Not on file Legal Sex Male 5:08 PM EST Gender Identity Not on file Sexual Orientation Not on file Last Filed Vital Signs Vital Sign Reading Time Taken Comments Blood Pressure 98/62 10/18/2020 2:55 PM EDT Pulse 86 10/18/2020 2:55 PM EDT Temperature - - Respiratory Rate - - Oxygen Saturation 96% 10/18/2020 2:55 PM EDT Inhaled Oxygen Concentration - - Weight 70.2 kg (154 lb 12.8 oz) 10/18/2020 2:55 PM EDT Height 162.6 cm (5' 4 ) 03/15/2020 12:0 0 PM EDT Body Mass Index 26.57 03/15/2020 12:00 PM EDT Plan of Treatment Health Maintenance Due Date Last Done Comments Pneumococcal Vaccine: 50+ Ye ars (1 of 2 - PCV) 1980 Colorectal Cancer Screening: Annual FOBT 2010 Colorectal Cancer Screening: Colonoscopy 2010 Colorectal Cancer Screening: Sigmoidoscopy 2010 Influenza Vaccine (#1) 2025 Hepatitis B Vaccine Aged Out No longe r eligible based on patient's age to complete this topic Insurance Medicaid Member Subscriber Plan / Payer (Ef fective 2020-Present) Name:Juan Manuel Stratton Relation to Subscriber:Self Name:Juan Manuel Stratton Payer ID:Not on file Group ID:[id number] Type:Not on file Address: [place] [id number] Medicaid Care Teams Dowel Sticker Operator Relationship Specialty Start Date End Date Amaury Guardado MD [address] BREANN SANDERS PCP - General 06/28/20
== END 2025-02-03 09:46 | disposition home or self-care (01) ==
PROVIDERS: PCP Internal Medicine; Visit Provider Internal Medicine
DX: E11.65 Type 2 diabetes mellitus with hyperglycemia (principal); E78.00 Pure hypercholesterolemia, unspecified; I10 Essential (primary) hypertension; K21.00 Gastro-esophageal reflux disease with esophagitis, without bleeding; M51.369 Other intervertebral disc degeneration, lumbar region without mention of lumbar back pain or lower extremity pain; M19.90 Unspecified osteoarthritis, unspecified site; R41.89 Other symptoms and signs involving cognitive functions and awareness; Z72.0 Tobacco use; Z13.9 Encounter for screening, unspecified

== ENCOUNTER → 2025-02-03 09:05 | Outpatient (BNVA) | payer OTHER, SELFPAY | PROVIDERS: PCP Internal Medicine; Visit Provider Internal Medicine | DX: E11.65 Type 2 diabetes mellitus with hyperglycemia (principal); E78.00 Pure hypercholesterolemia, unspecified; I10 Essential (primary) hypertension; K21.00 Gastro-esophageal reflux disease with esophagitis, without bleeding; M51.369 Other intervertebral disc degeneration, lumbar region without mention of lumbar back pain or lower extremity pain; M19.90 Unspecified osteoarthritis, unspecified site; R41.89 Other symptoms and signs involving cognitive functions and awareness; R30.0 Dysuria; J45.20 Mild intermittent asthma, uncomplicated; Z72.0 Tobacco use; Z79.84 Long term (current) use of oral hypoglycemic drugs | CPT/HCPCS: 83036; 99212 ==

== ENCOUNTER 2025-04-29 11:08 | Outpatient (REF) | payer OTHER, SELFPAY ==
--- NOTE | ~2025-04-29 | CT_ITS ---
EXAMINATION: CT HEAD WITHOUT CONTRAST CLINICAL INFORMATION: R41.89 - Other symptoms and signs involving cognitive functions and awareness COMPARISON: None available. TECHNIQUE: Contiguous axial imaging was performed from the skull base to vertex without intravenous administration of contrast. This CT examination was performed using dose optimization techniques as appropriate, variously including the following: *Automated exposure control *Adjustment of mA and/or kV according to patient size (this includes techniques or standardized protocols for targeted exams where dose is matched to indication/reason for exam; i.e. extremities or head) *Use of iterative reconstruction technique FINDINGS: There is low attenuation in the left anterior MCA territory that is near CSF density and most consistent with a remote infarct. Incidental note is made of cavum septa pellucida. There is no intracranial hemorrhage. There is no mass-effect or midline shift. Basal cisterns and ventricles are within normal limits for age/cerebral volume. Orbits are symmetrical and unremarkable. Paranasal sinuses and mastoid air cells are pneumatized. There are no bony abnormalities. 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 Dr. Edge notified via [place]. Electronically signed by: Keyur Carpenter MD 04/29/2025 11:39 AM EST
--- OUTSIDE RECORDS SUMMARY | 2025-04-29 13:46 | XMS_ITS | Clinical Summary ---
Author Organization [facility] Address [address] [place] [address] Care Team Providers Care Auto Air Conditioning Mechanic Name Role Phone Grace Edge Primary Care Provider [phone] Allergies No known active allergies Medications Ventolin [...] Active Active Problems No known active problems Family History Relation Name Status Comments Father [...] 10/13/2011 Zoster Vaccines (1 of 2) 10/13/2011 Alcohol/Substance Use Screening 06/18/2024 Depression Screening and Follow-Up 06/18/2024 Social Drivers of Health Sonia ual Screening 06/18/2024 COVID-19 Vaccine (1 - 2024-2 6 season) 2025 Influenza Vaccine (#1) 2025 RSV Vaccine (60+ years old a nd patients) (1 - 1-dose 75+ series) 2036 Hepatitis B Vaccines Aged Out No long er eligible based on patient's age to complete this topic Insurance [facility] MEDICAID Care Teams Auto Air Conditioning Mechanic Relationship Specialty Start Date End Date Grace Edge [address] [place] [address] [place] [address] PCP - General Internal Medicine 03/04/24
--- OUTSIDE RECORDS SUMMARY | 2025-04-29 13:46 | XMS_ITS | Clinical Summary ---
Author Organization [facility] Facility Address [address] [place] [address] Care Team Providers Care Investigative Agent Name Role Phone Amaury Guardado MD Primary Care Provider [phone] Allergies Active Allergy Reactions Criticality Noted Date [...] file Group ID:[id number] Type:Not on file Address: [place] [phone] Medicaid Care Teams Investigative Agent Relationship Specialty Start Date End Date Amaury Guardado MD [address] BREANN SANDERS PCP - General 06/28/20
== END 2025-04-29 11:09 | disposition home or self-care (01) ==
LOC: HO.CT 11:08
PROVIDERS: PCP Internal Medicine; Visit Provider Internal Medicine
DX: R41.89 Other symptoms and signs involving cognitive functions and awareness (principal)
CPT/HCPCS: 70450

== ENCOUNTER → 2025-04-29 11:09 | Outpatient (BNV) | payer OTHER, SELFPAY | PROVIDERS: PCP Internal Medicine; Visit Provider Radiology Diagnostic Radiology | DX: R41.89 Other symptoms and signs involving cognitive functions and awareness (principal) | CPT/HCPCS: 70450 ==

== ENCOUNTER 2025-05-21 09:29 | Outpatient (REF) | payer OTHER, SELFPAY ==
[2025-05-21 09:46] LABS: MANUAL DIFF FLAG NO
--- OUTSIDE RECORDS SUMMARY | 2025-05-21 10:44 | XMS_ITS | Clinical Summary ---
Author Organization [facility] Address [address] [place] [address] Care Team Providers Care Health Center Assistant Name Role Phone Grace Edge Primary Care Provider [phone] Allergies No known active allergies Medications Ventolin [...] ual Screening 06/18/2024 Influenza Vaccine (#1) 2025 COVID-19 Vaccine ( - 2024-2 6 season) 2025 RSV Vaccine (60+ years old a nd patients) (1 - 1-dose 75+ series) 2036 Hepatitis B Vaccines Aged Out No long er eligible based on patient's age to complete this topic Insurance [facility] [place] [phone] Care Teams Health Center Assistant Relationship Specialty Start Date End Date Grace Edge [address] [place] [address] [place] [address] PCP - General Internal Medicine 03/04/24
[2025-05-21 10:50] LABS: Hematocrit 44.9 % (42.0-52.0); Hemoglobin 15.1 g/dl (14.0-18.0); Imm Gran Abs Auto 0.02 X10*3/uL (0.00-0.03); Imm Gran Pct Auto 0.3 % (0.0-0.4); Lymphocytes Absolute Auto 2.3 X10*3/uL (1.2-4.9); Mean Corpuscular HGB Conc 33.6 g/dl (31.0-36.0); Mean Corpuscular Hemoglobin 30.7 pg (27.0-33.0); Mean Corpuscular Volume 91.3 fL (80.0-98.0); NRBC Abs Auto 0.000 X10*3/uL (0.0-0.012); NRBC Pct Auto 0.0 /100WBC (0.0-0.2); Platelet Count 187 X10*3/uL (160-400); Red Blood Count 4.92 X10*6/uL (4.60-5.80); White Blood Count 7.2 X10*3/uL (4.8-10.8)
[2025-05-21 11:48] LABS: Appearance Urine Clear; Glucose Urine UA Negative (Negative); PH 6.0 (5.0-9.0); Specific Gravity - Urine 1.020 (1.005-1.025); UMIC TRIGGER UACC YES
[2025-05-21 11:58] LABS: Alanine Aminotransferase 21 U/L (0-40); Albumin Level 4.7 g/dL (3.5-5.0); Alkaline Phosphatase 65 U/L (39-117); Anion Gap 12 (12-20); Aspartate Amino Transferase 21 U/L (5-37); Blood Urea Nitrogen 12 mg/dL (9-16); Calcium 9.6 mg/dL (8.4-10.2); Carbon Dioxide 25 mmol/L (22-29); Chloride 108 mmol/L (96-108); Cholesterol 142 mg/dL (<200); Estimated Glomerular Filt Rate > 60; HDL Cholesterol 47 mg/dL (>40); Potassium 4.0 mmol/L (3.3-5.1); Sodium 141 mmol/L (135-145); Total Protein 7.4 g/dL (6.5-8.0); Triglycerides 96 mg/dL (<150)
[2025-05-21 12:01] LABS: Ferritin 57 ng/mL (20-250); Free T4 (Free Thyroxine) 1.14 ng/dL (0.71-1.85); Thyroid Stimulating Hormone 2.17 uIU/mL (0.32-4.0)
[2025-05-21 12:31] LABS: Folate 14.4 ng/mL (> or = 4.0); Vitamin B12 357 pg/mL (200-900)
== END 2025-05-21 09:30 | disposition home or self-care (01) ==
LOC: HO.LAB 09:29
PROVIDERS: PCP Internal Medicine; Visit Provider Internal Medicine
DX: E11.65 Type 2 diabetes mellitus with hyperglycemia (principal); R41.89 Other symptoms and signs involving cognitive functions and awareness; E78.00 Pure hypercholesterolemia, unspecified
CPT/HCPCS: 36415; 80053; 80061; 81001; 82570; 82607; 82728; 82746; 84153; 84439; 84443; 85025